=== PATIENT | male | born 1955 | race Caucasian/White ===

== ENCOUNTER 2017-07-07 05:47 | Inpatient (IN) | payer BC, OTHER ==
[2017-06-16 14:11] VITALS: BMI 36.0
--- NOTE | 2017-06-16 14:49 | PAT Medication Instructions ---
Service Date Jun 16, 2017. Current Home Medication List Amoxicillin (Amoxil), 500 MG PO UD PRN for DENTAL PROCEDURE Aspirin Enteric Coated (Ecotrin Or Generic), 81 MG PO QAM Cyanocobalamin (Vitamin B12), 1 TAB PO QAM Ferrous Sulfate (Iron), 1 TAB PO HS Losartan Potassium (Cozaar), 50 MG PO QAM Multivitamin (Multivitamin), 1 TAB PO QAM Pravastatin (Pravachol ), 10 MG PO HS Ranitidine (Zantac), 150 MG PO PRN Sulindac (Sulindac), 1 TAB PO HS [Zinc], 50 MG PO HS Medication Instructions For Your Scheduled Surgery Amoxicillin (Amoxil), 500 MG PO UD PRN for DENTAL PROCEDURE - Check with surgeon for instructions: Sulindac (Sulindac), 1 TAB PO HS - Hold the following medications the morning of surgery: Ranitidine (Zantac), 150 MG PO PRN Multivitamin (Multivitamin), 1 TAB PO QAM Losartan Potassium (Cozaar), 50 MG PO QAM Cyanocobalamin (Vitamin B12), 1 TAB PO QAM - Take the following medications the morning of surgery with a sip of water: Aspirin Enteric Coated (Ecotrin Or Generic), 81 MG PO QAM (okay to continue per surgeon) - Take the following medications as scheduled the night before surgery: [Zinc], 50 MG PO HS Pravastatin (Pravachol ), 10 MG PO HS Ranitidine (Zantac), 150 MG PO PRN (if needed) Ferrous Sulfate (Iron), 1 TAB PO HS If you have any questions please call us at [phone] or [phone] or [phone]
--- NOTE | 2017-06-16 15:25 | DIAGNOSTIC IMAGING REPORT ---
CHEST 2 VIEWS ROUTINE CLINICAL HISTORY: PAT preoperative evaluation COMPARISON STUDY: 02/07/2012 FINDINGS: The bones soft tissues and hemidiaphragms are normal. The cardiomediastinal silhouette is normal. The lungs are clear. The pulmonary vasculature is normal. Several metallic coils left lung base. IMPRESSION: No acute process. The above report was generated using voice recognition software. It may contain grammatical, syntax or spelling errors. Electronically signed by: Dustin Rodriguez M.D. 06/16/2017 3:24 PM Dictated Date/Time: 06/16/2017 3:22 PM
[2017-06-16 16:18] LABS: BASO % 0.4 %; BASO ABS # 0.03 K/uL (0-0.2); COMPLETE YES; EOS % 3.7 %; HEMATOCRIT 41.7 % (42-52); IG% 0.3 %; LYMPH % 27.2 %; LYMPH ABS # 1.89 K/uL (1.2-3.4); MEAN CELL VOLUME 95.9 fL (80-100); MEAN CORPUSCULAR HGB CONC 33.3 g/dl (32-36); MEAN PLATELET VOLUME 12.3 fL (7.4-10.4); MONO % 8.5 %; NEUT % 59.9 %; PLATELET COUNT 184 K/uL (130-400); RED BLOOD COUNT 4.35 M/uL (4.7-6.1); WHITE BLOOD COUNT 6.95 K/uL (4.8-10.8)
[2017-06-16 16:21] LABS: URINE APPEARANCE CLEAR (CLEAR); URINE BILIRUBIN NEG (NEG); URINE COLOR YELLOW; URINE NITRITE NEG (NEG); URINE PH 5.5 (4.5-7.5); URINE SPECIFIC GRAVITY 1.028 (1.000-1.030); UROBILINOGEN NEG (NEG); ZZUR CULT IF INDIC CLEAN CATCH NO
[2017-06-16 16:26] LABS: CALCIUM 8.4 mg/dl (8.5-10.1); MANUAL MICROSCOPIC REQUIRED? NO; POTASSIUM 3.6 mmol/L (3.5-5.1); REVIEW REQ? NO
[~2017-07-07] VITALS: Ht 177.8 cm; Wt 113.9 kg
[2017-07-07] VITALS (11 sets, daily range): BP systolic 115–156; BP diastolic 74–99; PULSE 58–93; TEMP 36.3–36.5; O2SAT 93–95; Ht 177.8 cm; Wt 113.9 kg
[~2017-07-07 05:47] MED LIST: AMOX500C3 PO; ASPI81TA21 PO; CLN200 PO; CYAN100020 PO; FERR1TAB61 PO; LOSA50TA6 PO; MULT-506 PO; PRAV20TA PO; ZINC PO; ZNTT/150 PO
[2017-07-07] MEDS ORDERED: CEFAZOLIN 2000 MG/60 ML D5W IV SCH (06:00)
[2017-07-07] MEDS ORDERED: LACTATED RINGER'S 1000ML 1,000 ML IV SCH (06:00)
[2017-07-07] MEDS ORDERED: FENTANYL CITRATE INJ 50 MCG/1 ML 2 ML VIAL ONE ×3 (06:41→09:03)
[2017-07-07] MEDS ORDERED: MIDAZOLAM HCL 1 MG/ML 2ML VIAL ONE (06:41)
[2017-07-07] MEDS ORDERED: BACITRACIN 50000 UNIT VIAL ONE (07:14)
[2017-07-07] MEDS ORDERED: BUPIVACAINE/EPINEPHRINE 0.5% MPF 1:200,000 10 ML VIAL ONE (07:14)
--- NOTE | 2017-07-07 07:28 | History & Physical Bridge Note ---
H&P Re-Evaluation Bridge Note: I have examined the patient, reviewed the History & Physical and in the interval since the performance of the History & Physical I have noted the following changes of clinical significance: No changes noted
--- NOTE | 2017-07-07 07:29 | History and Physical ---
History & Physical Date Jul 07, 2017. Chief Complaint Back and leg pain History of Present Illness The patient is a 61 year old male with complaints of back and leg pain Additional History Hepatic Disease: No Endocrine Disorder: No Kidney Disease: No Hypertension: No Heart Disease: No Bleeding Tendencies: No Infectious Diseases: No Allergies Coded Allergies: Mushroom Extract Complex (Verified Allergy, Unknown, ANAPHYLAXIS, 07/07/17) PT STATES HE IS TOLD TO STAY AWAY FROM ALL MUSHROMS NO KNOWN DRUG ALLERGIES (Verified Allergy, Unknown, NKDA, 07/07/17) Home Medications Scheduled Aspirin Enteric Coated (Ecotrin Or Generic), 81 MG PO QAM Cyanocobalamin (Vitamin B12), 1 TAB PO QAM Ferrous Sulfate (Iron), 1 TAB PO HS Losartan Potassium (Cozaar), 50 MG PO QAM Multivitamin (Multivitamin), 1 TAB PO QAM Pravastatin (Pravachol ), 10 MG PO HS Ranitidine (Zantac), 150 MG PO PRN Sulindac (Sulindac), 1 TAB PO HS [Zinc], 50 MG PO HS Scheduled PRN Amoxicillin (Amoxil), 500 MG PO UD PRN for DENTAL PROCEDURE Physical Examination Skin: warm/dry, no rash Eyes: normal inspection, EOMI, sclerae normal ENT: normal ENT inspection, pharynx normal Head: normocephalic, atraumatic Neck: supple, no adenopathy, trachea midline Respiratory/Chest: lungs clear, normal breath sounds, no respiratory distress Cardiovascular: regular rate, rhythm, no edema, no murmur Abdomen / GI: normal bowel sounds, non tender Back: normal inspection Extremities: normal inspection, normal range of motion Neurologic/Psych: no motor/sensory deficits, alert, normal reflexes, oriented x 3 Diagnosis Lumbar spinal stenosis Plan of Treatment Lumbar decompression and fusion L4 to S1
[2017-07-07] MEDS ORDERED: HYDROmorphone INJ 2 MG/ML SYR/VIAL ONE ×2 (08:00→09:41)
[2017-07-07] MEDS ORDERED: PROPOFOL IV EMULSION 10 MG/ML 20 ML VIAL IV ONE (09:09)
[2017-07-07] MEDS ORDERED: EpHEDrine SULFATE 50MG/5ML SYR ONE (09:09)
[2017-07-07] MEDS ORDERED: DEXAMETHASONE SOD INJ 4 MG/ML VIAL ONE (09:09)
[2017-07-07] MEDS ORDERED: PHENYLEPHRINE 100MCG/ML 5ML SYR ONE (09:09)
[2017-07-07] MEDS ORDERED: LIDOCAINE HCL 2% 2 ML VIAL (20MG/ML) ONE (09:09)
[2017-07-07] MEDS ORDERED: GLYCOPYRROLATE INJ 0.2 MG/ML VIAL ONE ×2 (09:09→09:43)
[2017-07-07] MEDS ORDERED: ATROPINE SULFATE 0.1 MG/ML 5ML SYR IV PRN (09:15)
[2017-07-07] MEDS ORDERED: PHENYLEPHRINE 100MCG/ML 5ML SYR IV PRN (09:15)
[2017-07-07] MEDS ORDERED: HYDROmorphone INJ 2 MG/ML SYR/VIAL IV PRN (09:15)
[2017-07-07] MEDS ORDERED: EpHEDrine SULFATE INJ 50 MG/ML AMP IV PRN (09:15)
[2017-07-07] MEDS ORDERED: ONDANSETRON INJ 2 MG/ML 2 ML VIAL IV PRN ×2 (09:15→09:45)
[2017-07-07] MEDS ORDERED: FLOSEAL HEMOSTATIC MATRIX 10ML TOP ONE (09:33)
[2017-07-07] MEDS ORDERED: SODIUM CHLORIDE 0.9% 1000ML 1,000 ML IV SCH (09:41)
[2017-07-07] MEDS ORDERED: NEOSTIGMINE METHYLSULFATE 1 MG/ML 10ML VIAL ONE (09:43)
[2017-07-07] MEDS ORDERED: ONDANSETRON INJ 2 MG/ML 2 ML VIAL ONE (09:43)
[2017-07-07] MEDS ORDERED: KETOROLAC TROMETHAMINE 30 MG/ML VIAL ONE ×2 (09:43→10:04)
[2017-07-07] MEDS ORDERED: ROCURONIUM BROMIDE 10 MG/ML 5 ML VIAL IV ONE (09:43)
[2017-07-07] MEDS ORDERED: DO NOT ADMINISTER PNEUMOCOCCAL VACCINE PRN ×2 (09:45)
[2017-07-07] MEDS ORDERED: LORAZEPAM 0.5 MG TAB PO PRN (09:45)
[2017-07-07] MEDS ORDERED: BISACODYL 10 MG SUPP PR PRN (09:45)
[2017-07-07] MEDS ORDERED: MAGNESIUM HYDROXIDE SUSP 30 ML UDC PO PRN (09:45)
[2017-07-07] MEDS ORDERED: ALUMINUM/MAGNESIUM SUSP 30 ML UDC PO PRN (09:45)
[2017-07-07] MEDS ORDERED: DO NOT ADMINISTER FLU VACCINE PRN ×3 (09:45)
[2017-07-07] MEDS ORDERED: ACETAMINOPHEN 500 MG TAB PO PRN (09:45)
[2017-07-07] MEDS ORDERED: LORAZEPAM INJ 0.5 MG in SYRINGE 0.75 ML IV PRN (09:45)
[2017-07-07] MEDS ORDERED: RANITIDINE HCL 150 MG TAB PO SCH (09:45)
[2017-07-07] MEDS ORDERED: PROMETHAZINE HCL INJ 12.5 MG in SODIUM CHLORIDE 0.9% 50ML 50 ML IV PRN (09:45)
[2017-07-07] MEDS ORDERED: ACETAMINOPHEN IV 100 ML IV PRN (09:45)
[2017-07-07] MEDS ORDERED: NALOXONE HCL 0.4 MG/1 ML VIAL/CARP IV PRN ×2 (09:45)
[2017-07-07] MEDS ORDERED: SOD PHOSPHATE/SOD BIPHOSPHATE ENEMA 132 ML BTL PR PRN (09:45)
[2017-07-07] MEDS ORDERED: METOCLOPRAMIDE HCL INJ 5 MG/ML 2 ML VIAL IV PRN (09:45)
[2017-07-07] MEDS ORDERED: FAMOTIDINE 20 MG TAB PO PRN (09:45)
[2017-07-07] MEDS ORDERED: hydrOXYzine HCL 25 MG TAB PO PRN (09:45)
--- NOTE | 2017-07-07 09:48 | [facility] Operative Report ---
Operative Report Operative Date Jul 07, 2017. Pre-Operative Diagnosis Lumbar Spinal Stenosis Post-Operative Diagnosis Lumbar Spinal Stenosis Procedure(s) Performed #1 lumbar decompression medial facetectomies foraminotomies L3 4 L4 5 L5-S1. #2 posterior spinal fusion L4 5 L5-S1. #3 placement posterior segmental instrumentation of L4 5 L5-S1. #4 number fusion L4 5. #5 placement peek cage 12 x 26 mm at L4 5. 6 placement of locally harvested morcellized autograft in the posterior lateral gutters. #7 placement of osteoamp in the interbody space and posterior lateral gutters. Surgeon Dr. Walsh Cell Assembly Pinner Surgeon(s) Martín Soto Estimated Blood Loss 400ml Findings Severe spinal stenosis Specimens none per surgeon Description of Procedure Patient was met with preoperatively case discussed all questions are dressed. After informed consent patient was taken to the operative suite and underwent intubation placed in a prone position the Alok table on top of the Hans frame. All bony promises well-padded eyes inspected to ensure there is no external pressure placed upon them. This point the number spine was prepped and draped in the normal sterile fashion. Sharp dissection with the assistance of Bovie cautery was performed onto an exposing the lamina and transverse processes of L4 L5 and the S1 levels bilaterally. From a caudal to cephalad fashion complete laminectomy of L5 L4 partial laminectomy of L3 was performed addressing severe lateral recess and foraminal stenosis. This included is is herniation at L5-S1 on the right. After complete decompression pedicle screws were placed in L4-L5 and S1 levels bilaterally with the assistance of fluoroscopy in the properly sized gabe placed. Through a transforaminal approach on the right a complete discectomy of L4 5 was performed and plate created to subcortical bleeding bone and a 12 x 26 mm peek cage filled with osteoamp tapped in position. Brought in and locked and final position bilaterally. Transverse processes of L4-L5 and sacral alar burred to subcortical bleeding bone. The remaining bone graft locally harvested morcellized autograft was placed in the posterior lateral gutters. A 15 round RICH drain was inserted. Incision was closed with 1 Vicryl in the fascia 2-0 Vicryl subcutaneously for Monocryl for final skin closure. Steri-Strips sterile dressing placed patient awakened and taken to PACU stable condition. Please note Zonia Blatnon was present at the entire procedure involved in patient positioning complex portions of the procedure and final skin closure. I attest to the content of the Intraoperative Record and any orders documented therein. Any exceptions are noted below.
--- NOTE | 2017-07-07 09:49 | DIAGNOSTIC IMAGING REPORT ---
LUMBAR SPINE 2 OR 3 VIEW HISTORY: 61 years-old Male L4-S1 DECOMPRESSION AND FUSION AND INTERBODY COMPARISON: None available TECHNIQUE: Frontal and lateral spot fluoroscopic images of the lumbar spine were obtained utilizing 20.7 seconds fluoroscopy time. FINDINGS: There has been interval posterior decompression with posterior interbody gabe and screw fusion at the L4-S1 levels. Discectomy changes are seen at L4-L5. Endplate spurring is seen at these levels with facet arthropathy. Alignment is satisfactory. IMPRESSION: Status post posterior decompression with interbody gabe and screw fusion at L4-S1. Discectomy changes noted at L4-L5. Satisfactory alignment. The above report was generated using voice recognition software. It may contain grammatical, syntax or spelling errors. Electronically signed by: Oracio Araujo M.D. 07/07/2017 9:48 AM Dictated Date/Time: 07/07/2017 9:46 AM
[2017-07-07] MEDS ORDERED: ESMOLOL HCL 10 MG/ML 10 ML VIAL ONE (10:04)
[2017-07-07] MEDS ORDERED: HYDROmorphone HCL 0.5MG/ML 50 ML CASSETTE ONE (10:04)
[2017-07-07] MEDS ORDERED: HYDROmorphone INJ 1 MG/ML SYR ONE ×2 (10:25→10:40)
--- NOTE | 2017-07-07 11:18 | Anesthesiology Progress Note ---
Anesthesia Post Op Note Date & Time Jul 07, 2017 at 11:18 Vital Signs Pain Intensity: 4 Vital Signs Past 12 Hours Date Time Temp Pulse Resp B/P (MAP) Pulse Ox O2 Delivery O2 Flow Rate FiO2 07/07/17 10:55 62 16 134/88 96 Nasal Cannula 2 07/07/17 10:45 60 16 151/89 94 Nasal Cannula 2 07/07/17 10:35 61 16 168/103 94 Nasal Cannula 2 07/07/17 10:25 66 16 159/106 94 Oxymask 10 07/07/17 10:15 37.1 68 14 156/93 97 Oxymask 10 07/07/17 10:00 37.1 73 16 135/82 95 Oxymask 10 07/07/17 06:05 36.5 60 20 144/99 95 Room Air Notes Mental Status: alert / awake / arousable, participated in evaluation Pt Amnestic to Procedure: Yes Nausea / Vomiting: adequately controlled Pain: adequately controlled Airway Patency, RR, SpO2: stable & adequate BP & HR: stable & adequate Hydration State: stable & adequate Anesthetic Complications: no major complications apparent
[2017-07-07] MEDS ORDERED: HYDROmorphone INJ 1 MG/ML SYR IV PRN (11:45)
[2017-07-07] MEDS: HYDROmorphone HCL 0.5MG/ML 50 ML CASSETTE IV PRN ×2 (12:05→23:05)
[2017-07-07] MEDS: SODIUM CHLORIDE 0.9% 1000ML 1,000 ML IV SCH ×2 (12:20→18:09)
[2017-07-07] MEDS ORDERED: RXC5 PO (15:34)
--- NOTE | 2017-07-07 15:35 | Discharge Instructions ---
Discharge Instructions Date of Service Jul 07, 2017. Admission Reason for Admission: Lumbar Spinal Stenosis Discharge Discharge Diagnosis / Problem: lumbar stenosis Discharge Goals Goal(s): Improve function Activity Recommendations Activity Limitations: per Instructions/Follow-up section . Current Hospital Diet Patient's current hospital diet: Regular Diet Discharge Diet Recommended Diet: Regular Diet Procedures Procedures Performed: #1 lumbar decompression medial facetectomies foraminotomies L3 4 L4 5 L5-S1. #2 posterior spinal fusion L4 5 L5-S1. #3 placement posterior segmental instrumentation of L4 5 L5-S1. #4 number fusion L4 5. #5 placement peek cage 12 x 26 mm at L4 5. 6 placement of locally harvested morcellized autograft in the posterior lateral gutters. #7 placement of osteoamp in the interbody space and posterior lateral gutters. Pending Studies Studies pending at discharge: no Medical Emergencies . Who to Call and When: Medical Emergencies: If at any time you feel your situation is an emergency, please call 911 immediately. . Non-Emergent Contact Non-Emergency issues call your: Primary Care Provider . "Provider Documentation" section prepared by West Walsh. . VTE Core Measure Inpt VTE Proph given/why not?: Alexis Liang, SCD's
[2017-07-07] MEDS: DEXAMETHASONE INJ 6 MG in SYRINGE 0 ML IV SCH (18:05)
[2017-07-07] MEDS: CEFAZOLIN IV 2,000 MG in DEXTROSE 5% 50ML 50 ML IV SCH (18:09)
[2017-07-07] MEDS: SULINDAC 200 MG TAB PO SCH (20:41)
[2017-07-07] MEDS: DOCUSATE SODIUM/SENNA 50/8.6MG TAB PO SCH (20:42)
[2017-07-07] MEDS: PRAVASTATIN SOD 20 MG TAB PO SCH (20:42)
[2017-07-08] VITALS (7 sets, daily range): BP systolic 105–176; BP diastolic 64–86; PULSE 63–79; TEMP 36.6–37.3; O2SAT 92–97
[2017-07-08] MEDS: CEFAZOLIN IV 2,000 MG in DEXTROSE 5% 50ML 50 ML IV SCH (01:17)
[2017-07-08] MEDS: SODIUM CHLORIDE 0.9% 1000ML 1,000 ML IV SCH (01:17)
[2017-07-08] MEDS: DEXAMETHASONE INJ 6 MG in SYRINGE 0 ML IV SCH ×2 (01:17→10:20)
[2017-07-08] MEDS ORDERED: COUGH DROP (SUGAR FREE) LOZ 24 LOZ/1 BOX ONE (01:20)
[2017-07-08] MEDS ORDERED: NURSING DECISION MEDICATION ORDER SCH (05:45)
[2017-07-08] MEDS ORDERED: DC PCA SCH (06:00)
[2017-07-08 06:14] LABS: COMPLETE YES; HEMATOCRIT 35.1 % (42-52); IG% 0.3 %; LYMPH % 5.1 %; LYMPH ABS # 0.85 K/uL (1.2-3.4); MEAN CELL VOLUME 95.9 fL (80-100); MEAN CORPUSCULAR HEMOGLOBIN 31.4 pg (25-34); MEAN CORPUSCULAR HGB CONC 32.8 g/dl (32-36); MEAN PLATELET VOLUME 12.2 fL (7.4-10.4); MONO % 3.6 %; PLATELET COUNT 188 K/uL (130-400); RED BLOOD COUNT 3.66 M/uL (4.7-6.1); WHITE BLOOD COUNT 16.55 K/uL (4.8-10.8)
[2017-07-08 06:57] LABS: BUN/CREATININE RATIO 16.9 (10-20); CALCIUM 7.1 mg/dl (8.5-10.1); POTASSIUM 4.1 mmol/L (3.5-5.1)
--- NOTE | 2017-07-08 08:08 | Progress Note ---
Progress Note Date of Service Jul 08, 2017. Progress Note Patient back pain is relatively well controlled some left upper buttock discomfort only. On exam he is good strength testing appears comfortable. Assessment status post lumbar depression fusion replant this time initiate physical therapy advance his bowel regimen anticipate possible home tomorrow evening
[2017-07-08] MEDS: OXYCODONE HCL IR 5 MG TAB (IMMEDIATE RELEASE) PO PRN ×4 (08:28→23:59)
[2017-07-08] MEDS: LOSARTAN POTASSIUM 50 MG TAB PO SCH (08:28)
[2017-07-08] MEDS: ASPIRIN 81 MG ECTAB PO SCH (08:28)
[2017-07-08] MEDS: HYDROmorphone INJ 0.5 MG/0.5 ML SYR IV PRN ×2 (12:09→21:44)
--- NOTE | 2017-07-08 12:58 | Anesthesiology Progress Note ---
Anesthesia Post Op Note Date & Time Jul 08, 2017 at 12:57 Vital Signs Pain Intensity: 3.0 Vital Signs Past 12 Hours Date Time Temp Pulse Resp B/P (MAP) Pulse Ox O2 Delivery O2 Flow Rate FiO2 07/08/17 10:55 36.8 68 18 150/78 (102) 97 Room Air 07/08/17 07:38 36.6 63 19 139/78 (98) 95 Room Air 07/08/17 07:15 Room Air 07/08/17 03:18 36.6 73 17 105/64 (78) 93 Room Air Notes Mental Status: alert / awake / arousable, participated in evaluation Anesthetic Complications: no major complications apparent
[2017-07-08] MEDS: SULINDAC 200 MG TAB PO SCH (21:40)
[2017-07-08] MEDS: PRAVASTATIN SOD 20 MG TAB PO SCH (21:40)
[2017-07-08] MEDS: DOCUSATE SODIUM/SENNA 50/8.6MG TAB PO SCH (21:41)
[2017-07-09] MEDS: POLYETHYLENE (MIRALAX) 17 GM PACK PO SCH ×2 (05:36→12:00)
[2017-07-09] MEDS: OXYCODONE HCL IR 5 MG TAB (IMMEDIATE RELEASE) PO PRN ×2 (05:40→13:56)
[2017-07-09 06:34] VITALS: BP 146/98; PULSE 73; TEMP 36.6; O2SAT 96
[2017-07-09] MEDS: LOSARTAN POTASSIUM 50 MG TAB PO SCH (07:46)
[2017-07-09] MEDS: ASPIRIN 81 MG ECTAB PO SCH (07:46)
[2017-07-09 14:18] VITALS: BP 146/98; PULSE 73; TEMP 36.6; O2SAT 96
--- NOTE | 2017-07-09 14:30 | Discharge Instructions ---
Discharge Instructions Date of Service Jul 09, 2017. Admission Reason for Admission: Lumbar Spinal Stenosis Discharge Discharge Diagnosis / Problem: stenosis Discharge Goals Goal(s): Improve function Activity Recommendations Activity Limitations: per Instructions/Follow-up section . Instructions / Follow-Up Instructions / Follow-Up ACTIVITY RECOMMENDATIONS: SELF CARE INSTRUCTIONS AFTER THORACIC/LUMBAR FUSIONS 1. You may walk to your tolerance. It is good exercise for your legs and back. Expect some back and intermittent leg aches and pains. 2. You may perform "counter-top" level activities (make a sandwich, yaneth with a project, etc.). 3. No bending or lifting of more than 10 pounds or back twisting of any nature (roll like a log when turning in bed). 4. You may ride in a car for 20-30 minutes at a time. No driving until after your first visit with your doctor. 5. Frequent changes of position and restricting sitting to 30 minutes at a time will help limit the amount of back spasms and stiffness you may experience. 6. You may discontinue the use of ambulatory aids (cane, crutches, etc.) once your strength and confidence allow. 7. You may automotive painter the shower and let water strike your incision when you arrive home at least once daily. Do not take a tub bath, sit in a hot tub or go into a swimming pool until after your first recheck in the office. SPECIAL CARE INSTRUCTIONS: VERY IMPORTANT TO READ AND REVIEW A. Your surgical incision has been closed with a cosmetic suture under the skin that will dissolve in about 6 weeks. In 14 days, you can use a pair of clean scissors and cut the suture that is left outside of the skin at the ends of your incision. 1. The small skin tapes can be removed 7 days after surgery if they have not fallen off by that point. 2. You may keep the wound open to air as much as possible to promote healing after post-op day number 5 unless told otherwise by your doctor. 3. If you think the wound looks like it is becoming infected (redness or worsening drainage) and/or you are experiencing fever, chill or worsening back pain and muscle spasms, contact the office so that we may evaluate you as soon as possible. B. Complications are uncommon, but please contact us if you have any signs or symptoms of: 1. wound infection (fever higher than 102.5 degrees F, redness, separation of wound, drainage, or increasing pain from the incision) 2. blood clots in legs (pain, swelling, redness and warmth in legs) 3. urinary tract infection (fever higher than 102.5 degrees F, burning upon urination or increased frequency of urination) 4. nerve problems (inability to walk on your toes or heels, numbness, loss of bowel or bladder control) 5. any other symptoms that concern you C. Please call the office at if you have any concerns or questions about your operation or recovery. D. No smoking! Smoking drastically decreases the chance of a solid fusion. E. Do not take any anti-inflammatory medications (Indocin, Advil, Motrin, Aspirin, Naprosyn, etc.) as these may inhibit the chance of a solid fusion. Tylenol is okay to take for pain. MANAGING PAIN AFTER SPINAL SURGERY 1. Narcotic medication is intended for short-term use and will be provided for surgical pain. Surgical pain usually lasts for a period of 4-6 weeks. Narcotic medication includes Percocet, Vicodin, Darvocet, Tylenol #3 or Lortab. 2. Longer-term pain is more appropriately treated with non-narcotic medication such as Tylenol ES. 3. Muscle spasm is not appropriately treated with narcotics. Muscle relaxers such as Soma, Flexeril or Skelaxin can be used along with Tylenol ES. 4. Remember that we all live with some "aches and pains". This is not unusual or uncommon after an injury or as we get older. a. Back pain is expected and may include muscle spasms for 4 to 6 weeks after surgery. The pain should gradually improve. If the pain worsens for no apparent reason, please contact the office. b. Intermittent leg pain may also be experienced and should not be concerned about unless it worsens for no apparent reason. If so, please contact the office. 5. We will provide appropriate medication within the normal guidelines of their prescribed use. We will also be very cautious and aware of potential abuse and extended duration of patients' medication needs. a. Pain medications are for your comfort and to assist with sleep and rest so that the tissue can heal. They are not provided in order to return to normal activity and should not be used through the day. To do so or worsening pain at night can result from ongoing tissue damage and development of tolerance to the prescribed medicine. 6. Please allow 2-3 days to process refills. Prescriptions will not be mailed but must be picked up at the office. FOLLOW UP VISIT: Keep your scheduled follow-up appointment. Any questions, please call the office at . Current Hospital Diet Patient's current hospital diet: Regular Diet Discharge Diet Recommended Diet: Regular Diet Procedures Procedures Performed: #1 lumbar decompression medial facetectomies foraminotomies L3 4 L4 5 L5-S1. #2 posterior spinal fusion L4 5 L5-S1. #3 placement posterior segmental instrumentation of L4 5 L5-S1. #4 number fusion L4 5. #5 placement peek cage 12 x 26 mm at L4 5. 6 placement of locally harvested morcellized autograft in the posterior lateral gutters. #7 placement of osteoamp in the interbody space and posterior lateral gutters. Pending Studies Studies pending at discharge: no Medical Emergencies . Who to Call and When: Medical Emergencies: If at any time you feel your situation is an emergency, please call 911 immediately. . Non-Emergent Contact Non-Emergency issues call your: Primary Care Provider . "Provider Documentation" section prepared by West Walsh. . VTE Core Measure Inpt VTE Proph given/why not?: Alexis Liang, COURTNEY's
--- NOTE | 2017-07-09 14:44 | Discharge Summary ---
Orthopedic Discharge Summary Admission Date/Reason Jul 07, 2017 at 07:30 Lumbar Spinal Stenosis. Discharge Date/Disposition Jul 09, 2017 Home with services Diagnosis Principal Diagnosis: Lumbar spinal stenosis Admission Physical Exam As per Admitting History & Physical. Hospital Course Patient underwent lumbar decompression fusion tolerated this well as taken to the orthopedic floor postop we. He was up and amatory progressed nicely throughout his postoperative course. Socially discharge home. Discharge orders and instructions found on the chart for further review. Discharge Instructions Please refer to the electronic Patient Visit Report (Discharge Instructions) for additional information.
== END 2017-07-09 14:56 | disposition home or self-care (01) | DRG 460 ==
LOC: C.ACU 05:47 → C.3E 07:30 → ENRESERV 10:59
PROVIDERS: ADMIT Orthopaedic Surgery Orthopaedic Surgery of the Spine; ATTEND Orthopaedic Surgery Orthopaedic Surgery of the Spine
PROC: 0ST20ZZ Resection of Lumbar Vertebral Disc, Open Approach (ICD-10-PCS; principal; 2017-07-07 07:45)
PROC: 0SG10J1 Fusion of 2 or more Lumbar Vertebral Joints with Synthetic Substitute, Posterior Approach, Posterior Column, Open Approach (ICD-10-PCS; principal; 2017-07-07 07:45)
DX: M48.06 Spinal stenosis, lumbar region (principal); Z79.82 Long term (current) use of aspirin

== ENCOUNTER 2018-03-07 19:24 | Inpatient (IN) | payer BC, OTHER ==
[~2018-03-07] VITALS: Ht 177.8 cm; Wt 109.6 kg
[~2018-03-07 19:24] MED LIST changes: +ASPI-319 PO; -ASPI81TA21 PO; -CLN200 PO; +RANI150T85 PO; +RXC5 PO; -ZNTT/150 PO
[2018-03-07] MEDS ORDERED: SODIUM CHLORIDE 0.9% 1000ML 1,000 ML IV STA (19:39)
[2018-03-07] MEDS ORDERED: MoRPHine SULFATE 4 MG/ML 1 ML CARP\\VIAL IV STA ×2 (19:39→21:55)
[2018-03-07] MEDS ORDERED: ONDANSETRON INJ 2 MG/ML 2 ML VIAL IV STA (19:39)
[2018-03-07 19:59] LABS: BASO % 0.3 %; BASO ABS # 0.03 K/uL (0-0.2); EOS % 1.7 %; HEMATOCRIT 39.6 % (42-52); HEMOGLOBIN 13.6 g/dL (14.0-18.0); IG# 0.03 K/uL (0.00-0.02); LYMPH % 14.7 %; LYMPH ABS # 1.69 K/uL (1.2-3.4); MEAN CELL VOLUME 94.1 fL (80-100); MEAN CORPUSCULAR HEMOGLOBIN 32.3 pg (25-34); MEAN CORPUSCULAR HGB CONC 34.3 g/dl (32-36); MEAN PLATELET VOLUME 11.1 fL (7.4-10.4); MONO % 6.9 %; MONO ABS # 0.79 K/uL (0.11-0.59); NEUT % 76.1 %; NEUT ABS # 8.73 K/uL (1.4-6.5); PLATELET COUNT 189 K/uL (130-400); RED CELL DISTRIBUTION WIDTH CV 12.5 % (11.5-14.5); RED CELL DISTRIBUTION WIDTH SD 43.1 fL (36.4-46.3); WHITE BLOOD COUNT 11.47 K/uL (4.8-10.8)
[2018-03-07 20:17] LABS: ALBUMIN 3.5 gm/dl (3.4-5.0); CALCIUM 8.4 mg/dl (8.5-10.1); CREATININE 1.67 mg/dl (0.60-1.40); POTASSIUM 3.6 mmol/L (3.5-5.1)
[2018-03-07 20:20] LABS: TOTAL PROTEIN 7.4 gm/dl (6.4-8.2)
--- NOTE | 2018-03-07 21:01 | DIAGNOSTIC IMAGING REPORT ---
GALLBLADDER-ABD LIMITED CLINICAL HISTORY: R flank pain; hx gallstones pain TECHNIQUE: Ultrasound COMPARISON STUDY: None FINDINGS: Gallbladder contains several stones in the region of the gallbladder neck. The largest measures 1 cm. No pericholecystic fluid. Common bile duct 4 mm. Liver shows mild fatty infiltration. Pancreas is not identified. Right kidney demonstrates mild fullness of the renal collecting system and renal pelvis. 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 There is a 3 cm lower pole right renal cyst. IMPRESSION: 1. Several gallstones within the gallbladder neck. 2. Normal caliber bile ducts. 3. Mild fatty infiltration of liver. 4. 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 The above report was generated using voice recognition software. It may contain grammatical, syntax or spelling errors. Electronically signed by: Dustin Rodriguez M.D. 03/07/2018 9:00 PM Dictated Date/Time: 03/07/2018 8:57 PM
[2018-03-07] MEDS ORDERED: MoRPHine SULFATE 4 MG/ML 1 ML CARP\\VIAL ONE (21:56)
[2018-03-07] MEDS ORDERED: CHOL2000 PO (22:07)
[2018-03-07] MEDS ORDERED: ZINC1TAB PO (22:07)
[2018-03-07] MEDS ORDERED: FERR83TA2 PO (22:07)
[2018-03-07] MEDS ORDERED: HYZ/50125 PO (22:07)
[2018-03-07] MEDS ORDERED: PRVC/10 PO (22:07)
[2018-03-07] MEDS ORDERED: SULI200T4 PO (22:07)
--- NOTE | 2018-03-07 23:54 | History and Physical ---
History & Physical Date & Time of Service: Mar 07, 2018 at 23:53 Chief Complaint: Gall Bladder Primary Care Physician: Keith Kang Jr,D.O. History of Present Illness Source: patient, spouse The patient is a 62-year-old male who presents to the emergency department with right sided flank and abdominal pain that initially occurred a couple days ago, then resolved spontaneously, and then recurred today. The pain is severe, and he has had some occasional nausea but no vomiting. He has been given morphine 4 mg IV in the ED with little improvement in pain. He does have a history of low back pain and had surgery last year, and did take 1 of his pain pills that was left over because he thought the pain may have been back related. When he did not improve, he decided to come to the emergency department for assessment. Past Medical/Surgical History Medical Problems: (1) Hydronephrosis of right kidney (2) Lumbar stenosis with neurogenic claudication (3) Right ureteral calculus Family History noncontributory Social History Smoking Status: Current Some Day Smoker Smokeless Tobacco Use: No Alcohol Use: none Drug Use: none Marital Status: Housing status: lives with family Immunizations History of Influenza Vaccine: No History of Tetanus Vaccine?: Unknown History of Pneumococcal: Unknown History of Hepatitis B Vaccine: Unknown Allergies Coded Allergies: Mushroom Extract Complex (Verified Allergy, Unknown, ANAPHYLAXIS, 07/07/17) PT STATES HE IS TOLD TO STAY AWAY FROM ALL MUSHROMS NO KNOWN DRUG ALLERGIES (Verified Allergy, Unknown, NKDA, 07/07/17) Home Medications Scheduled Aspirin Enteric Coated (Ecotrin Or Generic), 81 MG PO QAM Cholecalciferol (Vitamin D3), 2,000 INTER.UNIT PO DAILY Cyanocobalamin (Vitamin B12), 1,000 MCG PO QAM Ferrous Sulfate (Ferrous Sulfate), 27 MG PO DAILY Hctz/Losartan (Hyzaar 12.5MG/50MG), 1 TAB PO DAILY Multivitamin (Multivitamin), 1 TAB PO QAM Pravastatin Sod (Pravastatin Sodium), 10 MG PO HS Sulindac (Clinoril), 200 MG PO BID Zinc Gluconate (Zinc), 50 MG PO HS Scheduled PRN Amoxicillin (Amoxil), 500 MG PO UD PRN for Prior to Dental Procedures Review of Systems The patient denies chest pain, palpitations, shortness of breath, dyspnea on exertion, cough, lower extremity swelling, sore throat, fevers, chills, sweats, weight change, fatigue, vomiting, diarrhea , constipation, blood in urine or stool, dysuria, urinary frequency or urgency, lightheadedness , dizziness, headache, memory loss, loss of consciousness, rash, abnormal bruising or bleeding, imbalance, focal or generalized weakness, numbness or tingling in arms or legs, generalized arthralgias or myalgias, back or neck pain, or night sweats. The review of systems is otherwise negative other than for that already noted above, and at least 10 systems have been reviewed. Physical Exam Vital Signs Date Time Temp Pulse Resp B/P (MAP) Pulse Ox O2 Delivery O2 Flow Rate FiO2 03/07/18 23:01 77 16 147/92 94 Room Air 03/07/18 21:07 63 16 145/94 93 03/07/18 19:28 36.7 72 18 160/100 97 Room Air The patient is awake, alert and oriented 3, well developed and well nourished, normocephalic and atraumatic, lying in bed and in mild to moderate distress due to pain. HEENT--PERRL, EOMI, mucous membranes and oropharynx dry. Neck--supple. No JVD. No bruits. Thyroid normal, trachea midline, no adenopathy. Heart--normal S1 and S2. No murmurs, rubs or gallops. Lungs--clear bilaterally, no respiratory distress, no accessory muscle use. Abdomen--normal bowel sounds and soft. Mild tenderness right lower quadrant and right flank. Nondistended, no hernias or masses, no organomegaly. Extremities--no cyanosis or clubbing. No edema on the right. There is 1+ chronic pitting pretibial on the left. There are good distal pulses b/l. Dermatologic--normal skin turgor, normal color, no abnormal lymph nodes, no rash. Neurologic--cranial nerves II through XII grossly intact. Rheumatologic--normal range of motion. Psychiatric--normal affect. Diagnostics Laboratory Results Results Past 24 Hours Test 03/07/18 19:45 03/07/18 20:03 Range/Units White Blood Count 11.47 4.8-10.8 K/uL Red Blood Count 4.21 4.7-6.1 M/uL Hemoglobin 13.6 14.0-18.0 g/dL Hematocrit 39.6 42-52 % Mean Corpuscular Volume 94.1 80-100 fL Mean Corpuscular Hemoglobin 32.3 25-34 pg Mean Corpuscular Hemoglobin Concent 34.3 32-36 g/dl Platelet Count 189 130-400 K/uL Mean Platelet Volume 11.1 7.4-10.4 fL Neutrophils (%) (Auto) 76.1 % Lymphocytes (%) (Auto) 14.7 % Monocytes (%) (Auto) 6.9 % Eosinophils (%) (Auto) 1.7 % Basophils (%) (Auto) 0.3 % Neutrophils # (Auto) 8.73 1.4-6.5 K/uL Lymphocytes # (Auto) 1.69 1.2-3.4 K/uL Monocytes # (Auto) 0.79 0.11-0.59 K/uL Eosinophils # (Auto) 0.20 0-0.5 K/uL Basophils # (Auto) 0.03 0-0.2 K/uL RDW Standard Deviation 43.1 36.4-46.3 fL RDW Coefficient of Variation 12.5 11.5-14.5 % Immature Granulocyte % (Auto) 0.3 % Immature Granulocyte # (Auto) 0.03 0.00-0.02 K/uL Sodium Level 140 136-145 mmol/L Potassium Level 3.6 3.5-5.1 mmol/L Chloride Level 107 98-107 mmol/L Carbon Dioxide Level 26 21-32 mmol/L Anion Gap 7.0 3-11 mmol/L Blood Urea Nitrogen 18 7-18 mg/dl Creatinine 1.67 0.60-1.40 mg/dl Est Creatinine Clear Calc Drug Dose 56.4 ml/min Estimated GFR () 49.7 Estimated GFR (Non- 42.9 BUN/Creatinine Ratio 11.0 10-20 Random Glucose 107 70-99 mg/dl Calcium Level 8.4 8.5-10.1 mg/dl Total Bilirubin 0.5 0.2-1 mg/dl Direct Bilirubin 0.1 0-0.2 mg/dl Aspartate Amino Transf (AST/SGOT) 22 15-37 U/L Alanine Aminotransferase (ALT/SGPT) 28 12-78 U/L Alkaline Phosphatase 69 45-117 U/L Total Protein 7.4 6.4-8.2 gm/dl Albumin 3.5 3.4-5.0 gm/dl Lipase 158 73-393 U/L Urine Color YELLOW Urine Appearance CLEAR CLEAR Urine pH 5.0 4.5-7.5 Urine Specific [place] 1.029 1.000-1.030 Urine Protein NEG NEG Urine Glucose (UA) NEG NEG Urine Ketones NEG NEG Urine Occult Blood NEG NEG Urine Nitrite NEG NEG Urine Bilirubin NEG NEG Urine Urobilinogen NEG NEG Urine Leukocyte Esterase NEG NEG Diagnostic Radiology Patient Name: SHAYLA WISDOM V Unit Number: [id number] Dictated: 03/07/182056 Transcribed: 03/07/182056 MS Printed Date/Time: [~ rep prt dt]/[~ rep prt tm] [~ rep ct labl] - [~ rep ct ivnm] [facility] [address] [place] [address] Dictated: 03/07/182056 Transcribed: 03/07/182056 MS Printed Date/Time: [~ rep prt dt]/[~ rep prt tm] [~ rep ct labl] - [~ rep ct ivnm] GALLBLADDER-ABD LIMITED CLINICAL HISTORY: R flank pain; hx gallstones pain TECHNIQUE: Ultrasound COMPARISON STUDY: None FINDINGS: Gallbladder contains several stones in the region of the gallbladder neck. The largest measures 1 cm. No pericholecystic fluid. Common bile duct 4 mm. Liver shows mild fatty infiltration. Pancreas is not identified. Right kidney demonstrates mild fullness of the renal collecting system and renal pelvis. 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 There is a 3 cm lower pole right renal cyst. IMPRESSION: 1. Several gallstones within the gallbladder neck. 2. Normal caliber bile ducts. 3. Mild fatty infiltration of liver. 4. 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 The above report was generated using voice recognition software. It may contain grammatical, syntax or spelling errors. Electronically signed by: Dustin Rodriguez M.D. 03/07/2018 9:00 PM Dictated Date/Time: 03/07/2018 8:57 PM The status of this report is Signed. Draft = Not yet reviewed or approved by Radiologist. Signed = Reviewed and approved by Radiologist. <AttendingPhy></AttendingPhy> <FamilyPhy>Keith Kang Jr,D.O.</FamilyPhy> < PrimaryPhy>Keith Kang Jr,D.O.</PrimaryPhy> <UnitNumber>[id number]</ UnitNumber> <VisitNumber>[id number]</VisitNumber> <PatientName>SHAYLA WISDOM V</ PatientName> <DateOfBirth>1955</DateOfBirth> <Location>[facility]</Location> < ServiceDate>03/07/18</ServiceDate> <MNE>ESINDI</MNE> <OrderingPhy>Agusto Buckner PA-C</OrderingPhy> <OrderingPhyMNE>f rep ord dr freire</OrderingPhyMNE> < DictatingPhyMNE>f rep dict dr freire</DictatingPhyMNE> <CCListMNE>f rep ct mouna</ CCListMNE> <AdmittingPhyMNE>f pt admit dr freire</AdmittingPhyMNE> <AttendingPhyMNE >f pt attend dr freire</AttendingPhyMNE> <ConsultingPhyMNE>f pt consult dr freire</ConsultingPhyMNE> <FamilyPhyMNE>f pt fam dr freire</FamilyPhyMNE> <OtherPhyMNE>f pt other dr freire</OtherPhyMNE> < PrimaryPhyMNE>f pt prim care dr freire</PrimaryPhyMNE> <ReferringPhyMNE>f pt referring dr freire</ReferringPhyMNE> Impression Assessment and Plan 7 mm right proximal ureteral stone/right hydronephrosis-- Admit to medical surgical floor. N.p.o. after midnight. Ceftriaxone 1 g IV daily. Follow urine culture and sensitivity report. NSS at 80 ML's per hour. Consult urology. Acute kidney injury/hypertension-- Creatinine 1.67 upon admission. Hydrate with normal saline as above. Repeat BMP and magnesium serially. Hold HCTZ/losartan, aspirin and sulindac. Hyperlipidemia-- hold pravastatin while n.p.o. Vitamin B12 deficiency-- Hold cyanocobalamin 1000 mcg p.o. every morning until taking p.o. Advanced Directives Existing Advance Directive: No Existing Living Will: No Existing Power of Conflicts Analyst: No Resuscitation Status VTE Prophylaxis Will order VTE Prophylaxis: Yes Social Service Consult None Apply
[2018-03-08] VITALS (8 sets, daily range): BP systolic 134–165; BP diastolic 82–102; PULSE 58–68; TEMP 36.5–37; O2SAT 91–94; Ht 177.8 cm; Wt 109.6 kg
[2018-03-08] MEDS ORDERED: HYDROmorphone INJ 1 MG/ML SYR ONE (00:13)
[2018-03-08] MEDS ORDERED: ACETAMINOPHEN IV 100 ML IV PRN (00:15)
[2018-03-08] MEDS ORDERED: ACETAMINOPHEN 325 MG TAB PO PRN (00:15)
[2018-03-08] MEDS ORDERED: ONDANSETRON INJ 2 MG/ML 2 ML VIAL IV PRN (00:15)
--- NOTE | 2018-03-08 00:21 | EMERGENCY ROOM VISIT NOTE ---
ED Visit Note First contact with patient: 19:30 Chief Complaint: Abdominal pain History of Present Illness: Edison is a year-old white female complaining of quadrant abdominal pain. Historically patient reports Patient reports a onset of quadrant abdominal pain that started approximately hours ago. Since that time the pain has been . The pain is currently described as . The pain is nonradiating. The pain worsens with and is improved by . has been taken for pain and relief has been achieved. Associated with the pain there has been . Patient denies fevers, chills, sweats, skin eruptions, skin color changes, upper respiratory tract symptoms, shortness of breath, chest pain, nausea, vomiting, diarrhea, constipation, rectal bleeding, black/tarry stools, urinary symptoms, hematuria, vaginal bleeding, vaginal discharge, back/flank pain. Review of Systems: As noted above in history of present illness. All body systems were reviewed and found to be negative as noted above. Past Medical History: As previously noted and hypertension, nasal AVM, prostrate cancer, status post carpal tunnel release, lumbar back surgery. Current Medications: Allergies to Medications: Patient denies. Social History: Patient is currently employed; he feels safe in his home environment; he admits to tobacco use and denies alcohol use. Physical Examination: Vital Signs: Date Time Temp Pulse Resp B/P (MAP) Pulse Ox O2 Delivery O2 Flow Rate FiO2 03/07/18 23:01 77 16 147/92 94 Room Air 03/07/18 21:07 63 16 145/94 93 03/07/18 19:28 36.7 72 18 160/100 97 Room Air GENERAL: -year-old female in mild to moderate distress due to pain, nontoxic- appearing, afebrile and hemodynamically stable. NEUROLOGICAL: Awake, alert and oriented to person, place and time. Answering questions appropriately and following commands. Normal gait. Good hand eye coordination. SKIN: Warm, dry and pink. No soft tissue eruptions or trauma noted. HEENT: Atraumatic and normocephalic. PERRL. Sclera white and conjunctiva pink. Oral cavity moist and pink. Pharynx is nonerythematous or edematous. Speech normal. No lymphadenopathy. Trachea midline. No jugular venous distention. BACK: No tenderness over the bony spine. No CVA tenderness. THORAX: Lungs sounds are clear to auscultation and equal bilaterally with symmetrical chest wall. No wheezing, rales or rhonchi. No crepitus, tenderness , subcutaneous air or deformities noted. HEART: Regular rate and rhythm. No gallops, rubs or murmurs are appreciated. ABDOMEN: Flat, soft and nontender. Positive bowel sounds in all quadrants. No guarding, rigidity or organomegaly. EXTREMITIES: Moves all extremities well on command and with purpose. All distal neurovascular statuses are intact and equal bilaterally. ED Course: Patient is assessed as noted above. Patient's medication list was reviewed. Laboratory Testing: Test 03/07/18 19:45 03/07/18 20:03 Range/Units White Blood Count 11.47 4.8-10.8 K/uL Red Blood Count 4.21 4.7-6.1 M/uL Hemoglobin 13.6 14.0-18.0 g/dL Hematocrit 39.6 42-52 % Mean Corpuscular Volume 94.1 80-100 fL Mean Corpuscular Hemoglobin 32.3 25-34 pg Mean Corpuscular Hemoglobin Concent 34.3 32-36 g/dl Platelet Count 189 130-400 K/uL Mean Platelet Volume 11.1 7.4-10.4 fL Neutrophils (%) (Auto) 76.1 % Lymphocytes (%) (Auto) 14.7 % Monocytes (%) (Auto) 6.9 % Eosinophils (%) (Auto) 1.7 % Basophils (%) (Auto) 0.3 % Neutrophils # (Auto) 8.73 1.4-6.5 K/uL Lymphocytes # (Auto) 1.69 1.2-3.4 K/uL Monocytes # (Auto) 0.79 0.11-0.59 K/uL Eosinophils # (Auto) 0.20 0-0.5 K/uL Basophils # (Auto) 0.03 0-0.2 K/uL RDW Standard Deviation 43.1 36.4-46.3 fL RDW Coefficient of Variation 12.5 11.5-14.5 % Immature Granulocyte % (Auto) 0.3 % Immature Granulocyte # (Auto) 0.03 0.00-0.02 K/uL Sodium Level 140 136-145 mmol/L Potassium Level 3.6 3.5-5.1 mmol/L Chloride Level 107 98-107 mmol/L Carbon Dioxide Level 26 21-32 mmol/L Anion Gap 7.0 3-11 mmol/L Blood Urea Nitrogen 18 7-18 mg/dl Creatinine 1.67 0.60-1.40 mg/dl Est Creatinine Clear Calc Drug Dose 56.4 ml/min Estimated GFR () 49.7 Estimated GFR (Non- 42.9 BUN/Creatinine Ratio 11.0 10-20 Random Glucose 107 70-99 mg/dl Calcium Level 8.4 8.5-10.1 mg/dl Total Bilirubin 0.5 0.2-1 mg/dl Direct Bilirubin 0.1 0-0.2 mg/dl Aspartate Amino Transf (AST/SGOT) 22 15-37 U/L Alanine Aminotransferase (ALT/SGPT) 28 12-78 U/L Alkaline Phosphatase 69 45-117 U/L Total Protein 7.4 6.4-8.2 gm/dl Albumin 3.5 3.4-5.0 gm/dl Lipase 158 73-393 U/L Urine Color YELLOW Urine Appearance CLEAR CLEAR Urine pH 5.0 4.5-7.5 Urine Specific [place] 1.029 1.000-1.030 Urine Protein NEG NEG Urine Glucose (UA) NEG NEG Urine Ketones NEG NEG Urine Occult Blood NEG NEG Urine Nitrite NEG NEG Urine Bilirubin NEG NEG Urine Urobilinogen NEG NEG Urine Leukocyte Esterase NEG NEG Gallbladder Ultrasound: Was reviewed by myself and read by the radiologist and shows several stones in the region of the gallbladder neck with the largest measuring 1 cm. No holistic fluid. Common bile duct measuring 4 mm. Liver showing fatty infiltration. Pancreas was not identified. Right kidney demonstrate mild fullness of the renal collection system and renal pelvis with a 3 cm lower pole renal cyst Noncontrast Abdominal/Pelvic CT: Was reviewed by myself and read by the radiologist and showing a 7 mm stone in the proximal right ureter with moderate proximal dilatation, left nonobstructing renal stone, cholelithiasis and a normal-appearing appendix. Patient was hydrated with normal saline and he received a total of 8 mg of morphine IV for pain and 4 mg of Zofran IV. Patient was reassessed multiple times during his stay in the emergency department. Patient's case was consulted with general surgery who felt a noncontrast CT of the abdomen and pelvis was necessary to evaluate for ureter calculus; they felt that there was no ureter calculus patient should be admitted by general surgery for cholecystectomy tomorrow. Patient's case was reviewed with Dr. So; we agreed on diagnostic approach, treatment, disposition and plan. Patient's case was consulted with case management and Dr. Simpson, hospitalist, for medical observation/admission. Patient was educated about today's findings and instructed on his treatment plan ; he verbalized understanding and agreement with this plan. Clinical Impression: Right ureter calculus. Cholelithiasis. Decision-Making: Initially my differential diagnosis I considered urinary calculus, cholelithiasis, pancreatitis, hepatitis, pyelonephritis and other causes. Disposition and Plan: Patient to be brought in the hospital by Dr. Simpson; please see his notes and orders for final disposition and plan.
[2018-03-08] MEDS: SODIUM CHLORIDE 0.9% 1000ML 1,000 ML IV SCH ×2 (01:01→13:10)
[2018-03-08] MEDS: CEFTRIAXONE SOD INJ 1 GM in DEXTROSE 5% ADD-VANTAGE 50ML 50 ML IV SCH (01:01)
[2018-03-08] MEDS: HYDROmorphone INJ 2 MG/ML SYR/VIAL IV PRN ×2 (05:54→09:08)
--- NOTE | 2018-03-08 06:54 | DIAGNOSTIC IMAGING REPORT ---
CT OF THE ABDOMEN AND PELVIS WITHOUT CONTRAST, STONE PROTOCOL CLINICAL HISTORY: Right flank/abdominal pain. COMPARISON STUDY: CT of the chest and abdomen May 13, 2009 and right upper quadrant ultrasound March 07, 2018. TECHNIQUE: Helical axial images of the abdomen and pelvis were obtained without IV or oral contrast according to renal stone protocol. A dose lowering technique was utilized adhering to the principles of ALARA. FINDINGS: An 8 x 6 mm proximal right ureteral calculus results in moderate right hydronephrosis. There is moderate perinephric infiltration. No additional ureteral calculi are present. A 5 mm left renal calculus is present. A water attenuation 3.4 cm lesion within the lower pole of the right kidney was shown to represent a cyst on prior ultrasound. There are gallstones within the gallbladder. There is no biliary or pancreatic ductal dilatation. Unenhanced images of liver, spleen and adrenal glands are unremarkable. There is no evidence for a bowel obstruction. The appendix is normal. There is colonic diverticulosis without evidence for acute diverticulitis. The prostate gland is surgically absent. There is no lymphadenopathy. There are postsurgical findings within the spine. There are no suspicious osseous lesions. The appendix is normal. Note is made of endovascular coils within left lower lobe arteriovenous malformations. Postprocedural assessment is suboptimal on this unenhanced exam. IMPRESSION: 1. 8 mm x 6 mm proximal right ureteral calculus which results in moderate right hydronephrosis. 2. 5 mm left renal calculus. 3. Cholelithiasis. 4. Colonic diverticulosis without evidence for acute diverticulitis. Electronically signed by: Kody Castillo M.D. 03/08/2018 6:52 AM Dictated Date/Time: 03/08/2018 6:44 AM
--- NOTE | 2018-03-08 08:08 | Urology Consultation ---
History General Date of Service: March 08, 2018. Chief Complaint: right flank pain Primary Care Physician: Keith Kang Jr,D.O. Pt seen a urologist before?: No History of Present Illness 62 yo male admitted to [facility] with c/o right flank pain that started 5 days ago while mowing the grass. CT scan showing a 8x6mm proximal right ureteral stone. The pt has no previous hx of stones. He c/o right flank pain 5/10 this morning. Denies n/v. Denies dysuria or hematuria. He is currently afebrile. White count is 11.47. Cr noted to be 1.67. Baseline of 1.00. Imaging Imaging: CT Laboratory Last 24 Hours Test 03/07/18 19:45 03/07/18 20:03 White Blood Count 11.47 K/uL Red Blood Count 4.21 M/uL Hemoglobin 13.6 g/dL Hematocrit 39.6 % Mean Corpuscular Volume 94.1 fL Mean Corpuscular Hemoglobin 32.3 pg Mean Corpuscular Hemoglobin Concent 34.3 g/dl Platelet Count 189 K/uL Mean Platelet Volume 11.1 fL Neutrophils (%) (Auto) 76.1 % Lymphocytes (%) (Auto) 14.7 % Monocytes (%) (Auto) 6.9 % Eosinophils (%) (Auto) 1.7 % Basophils (%) (Auto) 0.3 % Neutrophils # (Auto) 8.73 K/uL Lymphocytes # (Auto) 1.69 K/uL Monocytes # (Auto) 0.79 K/uL Eosinophils # (Auto) 0.20 K/uL Basophils # (Auto) 0.03 K/uL RDW Standard Deviation 43.1 fL RDW Coefficient of Variation 12.5 % Immature Granulocyte % (Auto) 0.3 % Immature Granulocyte # (Auto) 0.03 K/uL Sodium Level 140 mmol/L Potassium Level 3.6 mmol/L Chloride Level 107 mmol/L Carbon Dioxide Level 26 mmol/L Anion Gap 7.0 mmol/L Blood Urea Nitrogen 18 mg/dl Creatinine 1.67 mg/dl Est Creatinine Clear Calc Drug Dose 56.4 ml/min Estimated GFR () 49.7 Estimated GFR (Non- 42.9 BUN/Creatinine Ratio 11.0 Random Glucose 107 mg/dl Calcium Level 8.4 mg/dl Total Bilirubin 0.5 mg/dl Direct Bilirubin 0.1 mg/dl Aspartate Amino Transf (AST/SGOT) 22 U/L Alanine Aminotransferase (ALT/SGPT) 28 U/L Alkaline Phosphatase 69 U/L Total Protein 7.4 gm/dl Albumin 3.5 gm/dl Lipase 158 U/L Urine Color YELLOW Urine Appearance CLEAR Urine pH 5.0 Urine Specific [place] 1.029 Urine Protein NEG Urine Glucose (UA) NEG Urine Ketones NEG Urine Occult Blood NEG Urine Nitrite NEG Urine Bilirubin NEG Urine Urobilinogen NEG Urine Leukocyte Esterase NEG Past History other (lumbar stenosis) Past Surgical History: orthopedic surgery (wrist surgery), spinal surgery Family History non-contributory Social History Hx Tobacco Use In Past Year?: Yes Smoking: other (current someday smoker) Alcohol: never Drug use: none Marital status: Housing status: lives with family Immunizations History of Influenza Vaccine: No History of Tetanus Vaccine?: Unknown History of Pneumococcal: Unknown History of Hepatitis B Vaccine: Unknown History of MDRO No Allergies Coded Allergies: Mushroom Extract Complex (Verified Allergy, Unknown, ANAPHYLAXIS, 07/07/17) PT STATES HE IS TOLD TO STAY AWAY FROM ALL [facility] NO KNOWN DRUG ALLERGIES (Verified Allergy, Unknown, NKDA, 07/07/17) Medications Home Medications: Home Meds and Scripts Medications Dose Route/Sig Max Daily Dose Days Date Category Clinoril (Sulindac) 200 Mg Tab 200 Mg PO BID 03/07/18 Reported Vitamin D3 (Cholecalciferol) 2,000 Unit Cap 2,000 Inter.unit PO DAILY 03/07/18 Reported Hyzaar 12.5MG/50MG (HCTZ/Losartan Potassium) Tab 1 Tab PO DAILY 03/07/18 Reported Ferrous Sulfate 27 Mg Tab 27 Mg PO DAILY 03/07/18 Reported Zinc (Zinc Gluconate) 50 Mg Tab 50 Mg PO HS 03/07/18 Reported Pravastatin Sodium (Pravastatin Sod) 10 Mg Tab 10 Mg PO HS 03/07/18 Reported Vitamin B12 (Cyanocobalamin) 1,000 Mcg Tab 1,000 Mcg PO QAM 06/16/17 Reported Amoxil (Amoxicillin) 500 Mg Cap 500 Mg PO UD PRN 06/16/17 Reported Ecotrin Or Generic (Aspirin) 81 Mg Tab 81 Mg PO QAM 02/07/12 Reported Multivitamin (Multivitamins) Tab 1 Tab PO QAM 05/13/09 Reported Inpatient Medications: Current Inpatient Medications Medications (Trade) Dose Ordered Sig/Sarahy Route Start Time Stop Time Status Last Admin Dose Admin Ondansetron HCl (Zofran Inj) 4 mg Q6H PRN IV 03/08/18 00:15 04/07/18 00:14 Hydromorphone HCl (Dilaudid Inj) 1 mg Q2H PRN IV 03/08/18 00:15 03/22/18 00:14 03/08/18 05:54 1 MG Acetaminophen 100 ml @ 400 mls/hr Q8H PRN IV 03/08/18 00:15 04/07/18 00:14 Acetaminophen (Tylenol Tab) 650 mg Q4H PRN PO 03/08/18 00:15 04/07/18 00:14 Ceftriaxone Sodium 1 gm/ Dextrose 50 ml @ 100 mls/hr Q24H IV 03/08/18 01:00 03/18/18 00:59 03/08/18 01:01 100 MLS/HR Pantoprazole Sodium 40 mg/ Syringe 10 ml @ 5 mls/min DAILY@11 IV 03/08/18 11:00 04/07/18 10:59 Sodium Chloride 1,000 ml @ 80 mls/hr [id number] IV 03/08/18 01:30 04/07/18 01:29 03/08/18 01:01 80 MLS/HR Review of Systems Review of Systems Constitutional: No fever, No chills Eyes: No double vision Neurological: No dizzy Endocrine: No excessive thirst Gastrointestinal: + abdominal pain (right flank pain 5/10 ), No nausea, No vomiting Cardiovascular: No chest pain Respiratory: No shortness of breath Skin: No rash Musculoskeletal: No back pain Male : No painful urination, No blood in urine Physical Exam Vital Signs: Vital Signs Past 12 Hours Date Time Temp Pulse Resp B/P (MAP) Pulse Ox O2 Delivery O2 Flow Rate FiO2 03/08/18 07:19 36.9 66 18 134/82 (99) 91 Room Air 03/08/18 00:43 36.8 68 18 144/91 Room Air 03/08/18 00:35 Room Air 03/08/18 00:13 71 16 145/89 92 Room Air 03/07/18 23:01 77 16 147/92 94 Room Air 03/07/18 21:07 63 16 145/94 93 Physical Exam: General Appearance: no apparent distress Eyes: bilateral eyes normal inspection ENT: hearing grossly normal Neck: no JVD Respiratory/Chest: no respiratory distress, no accessory muscle use Cardiovascular: no JVD Extremities: normal inspection Neurologic/Psychiatric: alert, normal mood/affect, oriented x 3 Skin: normal color Assessment & Plan Assessment & Plan Treatment Planned: cystoscopy w/ stent A/P: 8 x 6mm proximal right ureteral stone AFVSS. Tx options discussed with the pt today have included a trial of passage with MET vs cysto with right ureteral stent placement. The pt prefers cysto with right ureteral stent placement today. Risks and benefits of the procedure discussed with the pt. All questions answered. Pt agrees to the procedure at this time. Will order a pre-op chest x-ray and EKG. Will check a KUB for stone visibility as well. He is currently NPO. Will order Cipro pre-op. Thanks for the consult. Will continue to follow along with primary service. Thanks for allowing us to participate in this pt's care.
[2018-03-08] MEDS ORDERED: CIPROFLOXACIN / D5W 400 MG IV SCH (08:30)
--- NOTE | 2018-03-08 08:38 | DIAGNOSTIC IMAGING REPORT ---
CHEST 2 VIEWS ROUTINE CLINICAL HISTORY: Preoperative evaluation. COMPARISON STUDY: Chest radiograph June 16, 2017. FINDINGS: Several endovascular coils are noted within the left lower lobe. No pneumothorax or pleural effusion is noted. There is no evidence for pulmonary edema. Cardiomediastinal silhouette is within normal limits. IMPRESSION: No acute cardiopulmonary findings. Electronically signed by: Kody Castillo M.D. 03/08/2018 8:36 AM Dictated Date/Time: 03/08/2018 8:35 AM
--- NOTE | 2018-03-08 08:41 | DIAGNOSTIC IMAGING REPORT ---
KUB CLINICAL HISTORY: Right ureteral stone. COMPARISON STUDY: CT of the abdomen and pelvis March 07, 2018. FINDINGS: An 8 mm proximal right ureteral calculus is unchanged in position since CT performed March 07, 2018. Pelvic calcifications represent phleboliths. There are postoperative findings within the spine. Gallstones are noted. Left lower lobe endovascular coils are noted. IMPRESSION: No change in position of an 8 mm proximal right ureteral calculus. Electronically signed by: Kody Castillo M.D. 03/08/2018 8:39 AM Dictated Date/Time: 03/08/2018 8:37 AM
[2018-03-08 09:09] LABS: BASO % 0.1 %; BASO ABS # 0.02 K/uL (0-0.2); EOS % 0.3 %; EOS ABS # 0.04 K/uL (0-0.5); HEMATOCRIT 37.7 % (42-52); HEMOGLOBIN 12.8 g/dL (14.0-18.0); IG# 0.04 K/uL (0.00-0.02); LYMPH % 7.4 %; LYMPH ABS # 0.99 K/uL (1.2-3.4); MEAN CORPUSCULAR HEMOGLOBIN 32.2 pg (25-34); MEAN PLATELET VOLUME 11.3 fL (7.4-10.4); MONO % 7.5 %; MONO ABS # 1.01 K/uL (0.11-0.59); NEUT % 84.4 %; NEUT ABS # 11.33 K/uL (1.4-6.5); PLATELET COUNT 188 K/uL (130-400); RED CELL DISTRIBUTION WIDTH CV 12.6 % (11.5-14.5); RED CELL DISTRIBUTION WIDTH SD 43.5 fL (36.4-46.3); WHITE BLOOD COUNT 13.43 K/uL (4.8-10.8)
[2018-03-08 09:47] LABS: CALCIUM 8.1 mg/dl (8.5-10.1); CREATININE 1.76 mg/dl (0.60-1.40); POTASSIUM 3.9 mmol/L (3.5-5.1)
[2018-03-08] MEDS: PANTOprazole INJ 40 MG in SYRINGE 0 ML IV SCH (10:59)
[2018-03-08] MEDS ORDERED: PANTOprazole INJ 40 MG in SYRINGE 0 ML IV SCH (11:00)
--- NOTE | 2018-03-08 12:12 | Hospitalist Progress Note ---
Hospitalist Progress Note Date of Service March 08, 2018. (Cristiane Kwan PA-C) Subjective Pt evaluation today including: conversation w/ patient, physical exam, chart review, lab review, review of studies Pain: None PO Intake: NPO Voiding: no voiding problems The patient was seen and examined this afternoon. Pt reports feeling ok right now, his pain is adequately controlled, and was sleeping when I walked into the room. He reports never having a kidney stone before. He typically does drink a 12oz glass of icetea and 8oz of coffee 3x per week, however no excessive caffeine use. He is awaiting stent placement later this afternoon. Pt had voided about 1 hr ago, denies hematuria. Constitutional: No fever, No chills, No sweats, No fatigue Eyes: No redness, No diplopia ENT: No nasal symptoms, No sore throat Respiratory: + problem reported (hx smoking x 28 yrs, 5-6 cigs a day), No cough, No sputum, No shortness of breath Cardiovascular: No chest pain, No edema Abdomen: No pain, No nausea, No vomiting, No diarrhea, No constipation Musculoskeletal: + swelling, No muscle pain Male : + see HPI Neurologic: No weakness, No numbness/tingling (Cristiane Kwan PA-C ) Objective Vital Signs Date Time Temp Pulse Resp B/P (MAP) Pulse Ox O2 Delivery O2 Flow Rate FiO2 03/08/18 07:35 Room Air 03/08/18 07:19 36.9 66 18 134/82 (99) 91 Room Air 03/08/18 00:43 36.8 68 18 144/91 Room Air 03/08/18 00:35 Room Air 03/08/18 00:13 71 16 145/89 92 Room Air 03/07/18 23:01 77 16 147/92 94 Room Air 03/07/18 21:07 63 16 145/94 93 03/07/18 19:28 36.7 72 18 160/100 97 Room Air (Cristiane Kwan PA-C) Physical Exam General Appearance: WD/WN, no apparent distress Eyes: PERRL, EOMI ENT: hearing grossly normal, pharynx normal Neck: no adenopathy, no JVD Respiratory/Chest: lungs clear, no respiratory distress, no accessory muscle use, + pertinent finding (on RA) Cardiovascular: regular rate, rhythm, no murmur Abdomen: normal bowel sounds, non tender, soft Extremities: non-tender, no calf tenderness, + pedal edema (1+ pitting edema in the LLE, trace pitting in the RLE) Neurologic/Psychiatric: alert, normal mood/affect, oriented x 3 Skin: normal color, warm/dry (Cristiane Kwan, MAIK) Laboratory Results Last 24 Hours Test 03/07/18 19:45 03/07/18 20:03 03/08/18 08:55 White Blood Count 11.47 K/uL 13.43 K/uL Red Blood Count 4.21 M/uL 3.97 M/uL Hemoglobin 13.6 g/dL 12.8 g/dL Hematocrit 39.6 % 37.7 % Mean Corpuscular Volume 94.1 fL 95.0 fL Mean Corpuscular Hemoglobin 32.3 pg 32.2 pg Mean Corpuscular Hemoglobin Concent 34.3 g/dl 34.0 g/dl Platelet Count 189 K/uL 188 K/uL Mean Platelet Volume 11.1 fL 11.3 fL Neutrophils (%) (Auto) 76.1 % 84.4 % Lymphocytes (%) (Auto) 14.7 % 7.4 % Monocytes (%) (Auto) 6.9 % 7.5 % Eosinophils (%) (Auto) 1.7 % 0.3 % Basophils (%) (Auto) 0.3 % 0.1 % Neutrophils # (Auto) 8.73 K/uL 11.33 K/uL Lymphocytes # (Auto) 1.69 K/uL 0.99 K/uL Monocytes # (Auto) 0.79 K/uL 1.01 K/uL Eosinophils # (Auto) 0.20 K/uL 0.04 K/uL Basophils # (Auto) 0.03 K/uL 0.02 K/uL RDW Standard Deviation 43.1 fL 43.5 fL RDW Coefficient of Variation 12.5 % 12.6 % Immature Granulocyte % (Auto) 0.3 % 0.3 % Immature Granulocyte # (Auto) 0.03 K/uL 0.04 K/uL Sodium Level 140 mmol/L 140 mmol/L Potassium Level 3.6 mmol/L 3.9 mmol/L Chloride Level 107 mmol/L 108 mmol/L Carbon Dioxide Level 26 mmol/L 26 mmol/L Anion Gap 7.0 mmol/L 6.0 mmol/L Blood Urea Nitrogen 18 mg/dl 17 mg/dl Creatinine 1.67 mg/dl 1.76 mg/dl Est Creatinine Clear Calc Drug Dose 56.4 ml/min 53.3 ml/min Estimated GFR () 49.7 46.7 Estimated GFR (Non- 42.9 40.3 BUN/Creatinine Ratio 11.0 9.7 Random Glucose 107 mg/dl 118 mg/dl Calcium Level 8.4 mg/dl 8.1 mg/dl Total Bilirubin 0.5 mg/dl Direct Bilirubin 0.1 mg/dl Aspartate Amino Transf (AST/SGOT) 22 U/L Alanine Aminotransferase (ALT/SGPT) 28 U/L Alkaline Phosphatase 69 U/L Total Protein 7.4 gm/dl Albumin 3.5 gm/dl Lipase 158 U/L Urine Color YELLOW Urine Appearance CLEAR Urine pH 5.0 Urine Specific [place] 1.029 Urine Protein NEG Urine Glucose (UA) NEG Urine Ketones NEG Urine Occult Blood NEG Urine Nitrite NEG Urine Bilirubin NEG Urine Urobilinogen NEG Urine Leukocyte Esterase NEG (Cristiane Kwan, MAIK) Assessment and Plan 62 yo M with 7 mm right proximal ureteral stone/right hydronephrosis-- R proximal ureteral stone R hydronephrosis - CT abd showing 8x6mm stone - Ceftriaxone 1 g IV daily (started 03/07) - Follow urine culture and sensitivity report. - NSS at 80 ml/hr - Consult urology - planned for stent placement today, continue NPO until after procedure Acute kidney injury/hypertension-- Creatinine 1.67 upon admission and still elevated at 1.76 today. - IVF as above - Follow PRP and magnesium serially. - Hold HCTZ/losartan, aspirin and sulindac. HTN Hx Stroke with hx left sided weakness now resolved Pulmonary Atrioventricular fistula - BP slightly elevated in 140s/90s this morning likely due to pain and holding antihypertensives as above d/t GLADYS. - Follow. Hyperlipidemia-- - hold pravastatin while n.p.o. Chronic tobacco use - smokes cigarettes x 28 years at this point, denies willingness to quit currently, offered nicotine patch however he declines at this time. Vitamin B12 deficiency-- - Hold cyanocobalamin 1000 mcg p.o. every morning until taking p.o. Hx prostate cancer- stable Chronic lower back pain - stable DVT ppx: teds, scds, ambulatory CODE: FULL Disposition: From home. Possible dc tomorrow per urology (Cristiane Kwan, MAIK) Reviewed: Pt Seen/Exam by Me (Akua Tai MD) History Physician Hose Maker supervision Note: I interviewed and examined the patient. Discussed with SHERRI Kwan and agree with findings and plan as documented in the note. Any exceptions or clarifications are listed here: Patient feeling much improved since admission and after placement of stent in his right ureter. Denies any further right flank or abdominal pain. He is tolerating p.o. without nausea or vomiting. Denies chest pain shortness of breath. Vitals reviewed Gen: AAOx3, NAD HEENT: anicteric sclerae, EOMI CV: RRR no mgr nl S1S2 Pulm: CTAB no wcr Abd: +BS soft NT ND no masses or hernias Ext: no edema, 2+ DP pulses Skin: no rashes, warm/dry 62-year-old male with history as above, here with right ureterolithiasis and acute kidney injury. -Continue IV fluids and follow creatinine -For elevated blood pressure-his home HCTZ/losartan is on hold for GLADYS-will order IV hydralazine 10 mg q. 8 as needed SBP greater than 180 or DBP greater than 110, consider adding on amlodipine tomorrow if to be discharged and creatinine still not back to normal -Urinalysis looked normal, urine culture pending, but can likely discontinue Rocephin tomorrow -Will likely discharge to home tomorrow if creatinine improved and will need follow-up with urology for planned definitive stone treatment -Has noted asymptomatic cholelithiasis on imaging-should consider elective cholecystectomy with general surgery as an outpatient after recovery from kidney stone Documented By: Akua Tai (Akua Tai MD)
[2018-03-08] MEDS ORDERED: PROPOFOL IV EMULSION 10 MG/ML 20 ML VIAL ONE (15:37)
[2018-03-08] MEDS ORDERED: LIDOCAINE HCL 2% 2 ML VIAL (20MG/ML) ONE (15:37)
[2018-03-08] MEDS ORDERED: MIDAZOLAM HCL 1 MG/ML 2ML VIAL ONE (15:38)
[2018-03-08] MEDS ORDERED: FENTANYL CITRATE INJ 50 MCG/1 ML 2 ML VIAL ONE (15:38)
[2018-03-08] MEDS ORDERED: Cysto-Conray II 17.2% 250ML BOTTLE ONE (16:09)
--- NOTE | 2018-03-08 16:20 | [facility] Operative Report ---
Operative Report Operative Date March 08, 2018. Pre-Operative Diagnosis Right ureteral stone Post-Operative Diagnosis Right ureteral stone Procedure(s) Performed Cystoscopy, Right Ureteral Stent Insertion (6 Haitian by 22-32cm) Surgeon Dr. Lal Estimated Blood Loss 0 cc Findings Some purulent urine in the right kidney Specimens none per surgeon Drains Ureteral stent Anesthesia Type MAC Complication(s) none Disposition yes Recovery Room / PACU Indications Renal colic Description of Procedure The patient was identified in the preoperative holding area, appropriate informed consents reviewed and completed he was transported to the operating suite. Upon arrival he received appropriate preoperative antibiotics in the form of ciprofloxacin. Adequate sedation was achieved and he was placed in dorsal lithotomy position where he was sterilely prepped and draped in standard fashion. I began the case by passing a 22 Haitian cystoscope with 30 lens. Inspection of the urethra revealed no abnormalities. His prostate was relatively small in size. Section of the bladder revealed healthy appearing bladder mucosa. Ureteral orifices were in orthotopic position. I cannulated the right ureteral orifice with a 5 Haitian open-ended catheter and a sensor wire. Wire advanced the kidney without difficulty. I cannot readily identify the ureteral fragment seen on CT on the fluoroscope within the OR. I subsequently placed a 6 Haitian by 2232 cm double-J ureteral stent seeing a good curl in the kidney as well as the bladder. I then decompressed the bladder and concluded the case. He was reversed from anesthesia and taken to the recovery room in stable condition. I attest to the content of the Intraoperative Record and any orders documented therein. Any exceptions are noted below.
--- NOTE | 2018-03-08 16:36 | Anesthesiology Progress Note ---
Anesthesia Post Op Note Date & Time March 08, 2018 at 16:36 Vital Signs Pain Intensity: 5.0 Vital Signs Past 12 Hours Date Time Temp Pulse Resp B/P (MAP) Pulse Ox O2 Delivery O2 Flow Rate FiO2 03/08/18 15:17 37.1 65 16 146/92 (110) 95 Room Air 03/08/18 07:35 Room Air 03/08/18 07:19 36.9 66 18 134/82 (99) 91 Room Air Notes Mental Status: alert / awake / arousable, participated in evaluation Pt Amnestic to Procedure: Yes Nausea / Vomiting: adequately controlled Pain: adequately controlled Airway Patency, RR, SpO2: stable & adequate BP & HR: stable & adequate Hydration State: stable & adequate Anesthetic Complications: no major complications apparent
--- NOTE | 2018-03-08 16:52 | DIAGNOSTIC IMAGING REPORT ---
KUB HISTORY: 62 years-old Male RT CYSTO right-sided cystourethrogram with stent placement COMPARISON: KUB 03/08/2017, CT 03/07/2018. TECHNIQUE: Single spot fluoroscopic image of the right upper abdomen was obtained utilizing 6.2 seconds fluoroscopy time FINDINGS: Single image demonstrates the proximal portion of a right ureteral stent which has been placed in the interval. Previously described ureteral calculus is not seen on this image. Cholelithiasis. Degenerative changes of the imaged spine are noted. IMPRESSION: Fluoroscopic assistance as above. Please see procedural report for further details. The above report was generated using voice recognition software. It may contain grammatical, syntax or spelling errors. Electronically signed by: Oracio Araujo M.D. 03/08/2018 4:51 PM Dictated Date/Time: 03/08/2018 4:50 PM
[2018-03-08] MEDS ORDERED: ATROPINE SULFATE 0.1 MG/ML 5ML SYR IV PRN (17:00)
[2018-03-08] MEDS ORDERED: EpHEDrine SULFATE INJ 50 MG/ML AMP IV PRN (17:00)
[2018-03-08] MEDS ORDERED: HydrALAZINE HCL 20 MG/ML VIAL IV. PRN (18:45)
[2018-03-08] MEDS ORDERED: PRAVASTATIN SOD 10 MG TAB PO SCH (21:00)
[2018-03-09] MEDS: SODIUM CHLORIDE 0.9% 1000ML 1,000 ML IV SCH (01:17)
[2018-03-09] MEDS: CEFTRIAXONE SOD INJ 1 GM in DEXTROSE 5% ADD-VANTAGE 50ML 50 ML IV SCH (01:17)
[2018-03-09 04:00] VITALS: BP 151/80; PULSE 66; TEMP 36.9; O2SAT 94
[2018-03-09 07:01] VITALS: BP 151/91; PULSE 61; TEMP 36.7; O2SAT 93
[2018-03-09 07:25] LABS: BASO % 0.3 %; BASO ABS # 0.03 K/uL (0-0.2); EOS % 2.3 %; HEMATOCRIT 34.8 % (42-52); IG# 0.02 K/uL (0.00-0.02); LYMPH % 17.1 %; LYMPH ABS # 1.51 K/uL (1.2-3.4); MEAN CELL VOLUME 94.3 fL (80-100); MEAN CORPUSCULAR HEMOGLOBIN 32.5 pg (25-34); MEAN CORPUSCULAR HGB CONC 34.5 g/dl (32-36); MEAN PLATELET VOLUME 11.6 fL (7.4-10.4); MONO % 9.1 %; NEUT ABS # 6.27 K/uL (1.4-6.5); PLATELET COUNT 157 K/uL (130-400); RED CELL DISTRIBUTION WIDTH CV 12.6 % (11.5-14.5); RED CELL DISTRIBUTION WIDTH SD 42.8 fL (36.4-46.3); WHITE BLOOD COUNT 8.83 K/uL (4.8-10.8)
[2018-03-09 08:04] LABS: CALCIUM 7.9 mg/dl (8.5-10.1); CREATININE 1.31 mg/dl (0.60-1.40)
[2018-03-09 08:41] LABS: POTASSIUM 3.5 mmol/L (3.5-5.1)
[2018-03-09] MEDS ORDERED: MULTIVITAMIN TAB PO SCH (09:00)
[2018-03-09] MEDS ORDERED: LOSARTAN/HCTZ 50-12.5 EA TAB PO SCH (09:30)
--- NOTE | 2018-03-09 09:33 | Progress Note ---
Subjective Date of Service: March 09, 2018. Subjective Pt evaluation today including: conversation w/ patient, physical exam, lab review Voiding: no voiding problems Pt doing well after right ureteral stent insertion yesterday - minimal stent bother (only when voiding) - no renal colic, etc - voiding adequately Review of Systems Abdomen: No pain, No nausea Male : + problem reported, No dysuria, No urinary frequency, No hematuria Objective Vital Signs Date Time Temp Pulse Resp B/P (MAP) Pulse Ox O2 Delivery O2 Flow Rate FiO2 03/09/18 07:25 Room Air 03/09/18 07:01 36.7 61 18 151/91 (111) 93 Room Air 03/09/18 04:00 36.9 66 18 151/80 (103) 94 Room Air 03/08/18 23:45 Room Air 03/08/18 23:06 36.7 66 20 151/86 (107) 92 Room Air 03/08/18 20:05 37.0 59 18 160/88 (112) 94 Room Air 03/08/18 19:15 36.7 64 18 153/86 (108) 94 Room Air 03/08/18 18:16 36.8 62 18 165/84 (111) 92 Room Air 03/08/18 17:30 36.7 58 18 155/102 (119) 94 Room Air 03/08/18 17:00 Room Air 03/08/18 17:00 36.5 63 16 150/91 (110) 93 Room Air 03/08/18 17:00 93 Room Air 03/08/18 16:52 59 7 03/08/18 16:52 60 7 96 03/08/18 16:51 159/93 03/08/18 16:47 61 10 94 03/08/18 16:47 63 10 03/08/18 16:46 145/89 03/08/18 16:44 37.0 62 16 145/89 (108) 95 Nasal Cannula 2 03/08/18 16:42 68 14 95 03/08/18 16:42 68 14 03/08/18 16:41 153/104 03/08/18 16:37 63 19 100 03/08/18 16:37 62 19 03/08/18 16:36 67 17 03/08/18 16:36 66 17 143/89 100 03/08/18 16:36 67 17 03/08/18 16:36 66 17 143/89 100 03/08/18 16:33 133/91 03/08/18 16:33 133/91 03/08/18 16:31 67 10 03/08/18 16:31 66 10 143/111 100 03/08/18 16:31 66 10 143/111 100 03/08/18 16:31 67 10 03/08/18 16:27 131/89 03/08/18 16:27 131/89 03/08/18 16:26 72 13 98 03/08/18 16:26 71 13 03/08/18 16:26 72 13 98 03/08/18 16:26 36.8 69 16 131/89 (110) 98 Nasal Cannula 2 03/08/18 16:26 71 13 03/08/18 15:17 37.1 65 16 146/92 (110) 95 Room Air Physical Exam General Appearance: WD/WN, no apparent distress Eyes: normal inspection ENT: hearing grossly normal Neck: no adenopathy Respiratory/Chest: no respiratory distress Cardiovascular: no edema Abdomen: non tender, soft Extremities: no pedal edema, no calf tenderness Neurologic/Psychiatric: alert, normal mood/affect, oriented x 3 Laboratory Results Last 24 Hours Test 03/09/18 07:13 03/09/18 08:17 White Blood Count 8.83 K/uL Red Blood Count 3.69 M/uL Hemoglobin 12.0 g/dL Hematocrit 34.8 % Mean Corpuscular Volume 94.3 fL Mean Corpuscular Hemoglobin 32.5 pg Mean Corpuscular Hemoglobin Concent 34.5 g/dl Platelet Count 157 K/uL Mean Platelet Volume 11.6 fL Neutrophils (%) (Auto) 71.0 % Lymphocytes (%) (Auto) 17.1 % Monocytes (%) (Auto) 9.1 % Eosinophils (%) (Auto) 2.3 % Basophils (%) (Auto) 0.3 % Neutrophils # (Auto) 6.27 K/uL Lymphocytes # (Auto) 1.51 K/uL Monocytes # (Auto) 0.80 K/uL Eosinophils # (Auto) 0.20 K/uL Basophils # (Auto) 0.03 K/uL RDW Standard Deviation 42.8 fL RDW Coefficient of Variation 12.6 % Immature Granulocyte % (Auto) 0.2 % Immature Granulocyte # (Auto) 0.02 K/uL Sodium Level 142 mmol/L Potassium Level mmol/L 3.5 mmol/L Chloride Level 111 mmol/L Carbon Dioxide Level 26 mmol/L Anion Gap 5.0 mmol/L Blood Urea Nitrogen 19 mg/dl Creatinine 1.31 mg/dl Est Creatinine Clear Calc Drug Dose 71.5 ml/min Estimated GFR () 66.7 Estimated GFR (Non- 57.5 BUN/Creatinine Ratio 14.3 Random Glucose 97 mg/dl Calcium Level 7.9 mg/dl Magnesium Level mg/dl 1.9 mg/dl Assessment and Plan POD #1 s/p R ureteral stent insertion for right renal colic and obstructing ureteral calc - stable for d/c home from a standpoint - my office will contact him today to arrange f/u
[2018-03-09] MEDS ORDERED: CIPROFLOXACIN 400MG / 200ML D5W IV ONE (11:00)
[2018-03-09] MEDS: PANTOprazole INJ 40 MG in SYRINGE 0 ML IV SCH (11:03)
--- NOTE | 2018-03-09 11:30 | Discharge Instructions ---
Discharge Instructions Date of Service March 09, 2018. Admission Reason for Admission: Hydronephrosis Of Rt Kidney, Rt Ureteral Calc Discharge Discharge Diagnosis / Problem: R ureteral calculus, R hydronephrosis Discharge Goals Goal(s): Decrease discomfort, Improve function, Increase independence, Improve disease control Activity Recommendations Activity Limitations: resume your previous activity Lifting Limitations: none, gradually increase as tolerated Exercise/Sports Limitations: rest today, gradually increase as tolerated May Resume Sexual Activity: when tolerated Shower/Bathe: no limitations Driving or Machine Use: no limitations . Instructions / Follow-Up Instructions / Follow-Up You were admitted to [facility] with R ureteral stone and R hydronephrosis and diagnosed with the same as well as acute kidney injury. During your stay here you were evaluated by Urology and underwent stent placement by Dr. Lal on 03/08/18. This stent will need to be removed at a later date, please discuss the timing of this with urology upon follow up appointment. Your kidney function improved prior to discharge. You were treated with intravenous fluids, antibiotics and pain medications. You did not need any antibiotics at time of discharge. Medications: Continue taking your other medications as prescribed. Stop taking sulindac until after any procedure being performed by Urology. This is an NSAID and can potentially increase your risk of bleeding. You may use tylenol as needed in the interim. Appointments: Follow up with PCP within 1 week. Follow up with urology as already scheduled within 1 week. Discuss stent removal with urology at your follow up. Current Hospital Diet Patient's current hospital diet: Regular Diet Discharge Diet Recommended Diet: Regular Diet Procedures Procedures Performed: Cystoscopy, Right Ureteral Stent Insertion (6 [place] by 22-32cm) Pending Studies Studies pending at discharge: yes List of pending studies: Urine Culture - have urology follow result and discuss at your follow up appointment this Wednesday. Medical Emergencies . Who to Call and When: Medical Emergencies: If at any time you feel your situation is an emergency, please call 911 immediately. . Non-Emergent Contact Non-Emergency issues call your: Primary Care Provider, Urologist Call Non-Emergent contact if: you have a fever, temperature is above 100.5, your pain is not controlled, your pain is worsening, your pain is unusual for you, your pain is concerning you, you have any medication questions . Past History Medical & Surgical History: (1) GLADYS (acute kidney injury) (2) Right ureteral calculus (3) Hydronephrosis of right kidney . "Provider Documentation" section prepared by Dilcia Kwan. . [place] Drug Monitoring Program Search Results: no issues identified
[2018-03-09] MEDS ORDERED: RXC5 PO (12:27)
[2018-03-09] MEDS ORDERED: PHEN-774 PO (12:27)
[2018-03-09] MEDS ORDERED: DTR/5 PO (12:27)
[2018-03-09 13:37] VITALS: BP 151/91; PULSE 61; TEMP 36.7; O2SAT 93
--- NOTE | 2018-03-09 15:18 | Discharge Summary ---
Discharge Summary Date of Service March 09, 2018. Discharge Summary Admission Date: Mar 07, 2018 at 23:53 Discharge Date: March 09, 2018 Discharge Disposition: Home Principal Diagnosis: R ureteral stone, R hydronephrosis Problems/Secondary Diagnoses: Medical Problems: (1) GLAYDS (acute kidney injury) (2) Hydronephrosis of right kidney (3) Lumbar stenosis with neurogenic claudication (4) Right ureteral calculus Hx prostate cancer Chronic tobacco use HTN HLD Hx Stroke with hx left sided weakness now resolved Immunizations: Have You Had Influenza Vaccine: No History of Tetanus Vaccine?: Unknown History of Pneumococcal: Unknown History of Hepatitis B Vaccine: Unknown Procedures: 03/08/18: s/p R ureteral stent insertion for right renal colic and obstructing ureteral calc GALLBLADDER-ABD LIMITED 03/07/18 IMPRESSION: 1. Several gallstones within the gallbladder neck. 2. Normal caliber bile ducts. 3. Mild fatty infiltration of liver. 4. 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 CT OF THE ABDOMEN AND PELVIS WITHOUT CONTRAST, STONE PROTOCOL 03/08/18 IMPRESSION: 1. 8 mm x 6 mm proximal right ureteral calculus which results in moderate right hydronephrosis. 2. 5 mm left renal calculus. 3. Cholelithiasis. 4. Colonic diverticulosis without evidence for acute diverticulitis. KUB 03/08/18 IMPRESSION: No change in position of an 8 mm proximal right ureteral calculus. CHEST 2 VIEWS ROUTINE 03/08/18 FINDINGS: Several endovascular coils are noted within the left lower lobe. No pneumothorax or pleural effusion is noted. There is no evidence for pulmonary edema. Cardiomediastinal silhouette is within normal limits. IMPRESSION: No acute cardiopulmonary findings. KUB 03/08/18 FINDINGS: Single image demonstrates the proximal portion of a right ureteral stent which has been placed in the interval. Previously described ureteral calculus is not seen on this image. Cholelithiasis. Degenerative changes of the imaged spine are noted. IMPRESSION: Fluoroscopic assistance as above. Please see procedural report for further details. Consultations: Urology Medication Reconciliation New Medications: Oxybutynin Chloride (Ditropan) 5 Mg Tab 1 TAB PO BID PRN for bladder pain, #20 TAB 0 Refills Oxycodone HCl (Oxycodone HCl) 5 Mg Tab 5 MG PO Q6H PRN for Pain, #15 TABS 0 Refills Phenazopyridine Hcl (Pyridium) 100 Mg Tab 100 MG PO TID PRN for urinary discomfort, #15 TAB 0 Refills this product may turn your urine or tears orange Continued Medications: Amoxicillin (Amoxil) 500 Mg Cap 500 MG PO UD PRN for Prior to Dental Procedures, CAP Cholecalciferol (Vitamin D3) 2,000 Unit Cap 2000 INTER.UNIT PO DAILY, CAP Cyanocobalamin (Vitamin B12) 1,000 Mcg Tab 1000 MCG PO QAM Ferrous Sulfate (Ferrous Sulfate) 27 Mg Tab 27 MG PO DAILY Hctz/Losartan (Hyzaar 12.5MG/50MG) Tab 1 TAB PO DAILY, TAB Multivitamin (Multivitamin) Tab 1 TAB PO QAM Pravastatin Sod (Pravastatin Sodium) 10 Mg Tab 10 MG PO HS Zinc Gluconate (Zinc) 50 Mg Tab 50 MG PO HS Discontinued Medications: Aspirin Enteric Coated (Ecotrin Or Generic) 81 Mg Tab 81 MG PO QAM Sulindac (Clinoril) 200 Mg Tab 200 MG PO BID, TAB Discharge Exam The patient was seen and examined this morning. Pt reports doing well today. He has minimal dysuria at the end of urination stream. Denies any hematuria. No flank or abdominal pain. Pt anticipating discharge to home today. ROS: Constitutional: No fever, No chills, No sweats, No fatigue Eyes: No redness, No diplopia ENT: No nasal symptoms, No sore throat Respiratory: + problem reported (hx smoking x 28 yrs, 5-6 cigs a day), No cough, No sputum, No shortness of breath Cardiovascular: No chest pain, No edema Abdomen: No pain, No nausea, No vomiting, No diarrhea, No constipation Musculoskeletal: + swelling, No muscle pain Male : + see HPI Neurologic: No weakness, No numbness/tingling PE: General Appearance: WD/WN, no apparent distress Eyes: PERRL, EOMI ENT: hearing grossly normal, pharynx normal Neck: no adenopathy, no JVD Respiratory/Chest: lungs clear, no respiratory distress, no accessory muscle use, + pertinent finding (on RA) Cardiovascular: regular rate, rhythm, no murmur Abdomen: normal bowel sounds, non tender, soft Extremities: non-tender, no calf tenderness, + pedal edema (1+ pitting edema in the LLE, trace pitting in the RLE) Neurologic/Psychiatric: alert, normal mood/affect, oriented x 3 Skin: normal color, warm/dry Hospital Course 62 yo M with 7 mm right proximal ureteral stone/right hydronephrosis-- R proximal ureteral stone R hydronephrosis - CT abd showing 8x6mm stone - s/p stenting by urology - Ceftriaxone 1 g IV daily (started 03/07) - no need to continue antibiotics as UA essentially negative - pcp/urology to follow culture - Given pyridium and ditropan upon discharge - NSS at 80 ml/hr during admission - pt tolerated diet w/o issues. Cr improved. GLADYS resolved. - Consult urology - planned for stent placement today, continue NPO until after procedure Acute kidney injury/hypertension-- Creatinine 1.67 upon admission - improved back down to 1.3 - Follow PRP and magnesium serially. - Resume HCTZ/losartan Cont aspirin - STOP sulindac - should not take this prior to any procedure (ie stent removal) HTN Hx Stroke with hx left sided weakness now resolved Pulmonary Atrioventricular fistula - BP slightly elevated in 140s/90s - resume hyzaar Hyperlipidemia-- - hold pravastatin while n.p.o. Chronic tobacco use - smokes cigarettes x 28 years at this point, denies willingness to quit currently, offered nicotine patch however he declines at this time. Vitamin B12 deficiency-- - Hold cyanocobalamin 1000 mcg p.o. every morning until taking p.o. Hx prostate cancer- stable Chronic lower back pain - stable DVT ppx: teds, scds, ambulatory CODE: FULL Disposition: From home. Dc home today Total Time Spent: Greater than 30 minutes This includes examination of the patient, discharge planning, medication reconciliation, and communication with other providers. Discharge Instructions Please refer to the electronic Patient Visit Report (Discharge Instructions) for additional information. Follow-Up Follow up with your Primary Care Provider within 1 week. Follow up with urology as already scheduled on Wednesday. Additional Copies To Keith Kang Jr,Nesha
== END 2018-03-09 14:08 | disposition home or self-care (01) | DRG 694 ==
LOC: C.EDB 19:26 → C.MSW 23:53 → ENRESERV 03-08 00:06
PROVIDERS: ADMIT Hospitalist; ATTEND Internal Medicine
PROC: 0T768DZ Dilation of Right Ureter with Intraluminal Device, Via Natural or Artificial Opening Endoscopic (ICD-10-PCS; principal; 2018-03-08 14:00)
DX: N13.2 Hydronephrosis with renal and ureteral calculous obstruction (principal); N17.9 Acute kidney failure, unspecified; I10 Essential (primary) hypertension; E78.5 Hyperlipidemia, unspecified; E53.8 Deficiency of other specified B group vitamins; G89.29 Other chronic pain; M54.5 Low back pain; F17.210 Nicotine dependence, cigarettes, uncomplicated; Z86.73 Personal history of transient ischemic attack (TIA), and cerebral infarction without residual deficits; Z79.82 Long term (current) use of aspirin; Z79.899 Other long term (current) drug therapy; Z91.018 Allergy to other foods

== ENCOUNTER → 2018-03-18 | Day surgery (SDC) | payer OTHER ==
[2018-03-14 13:34] VITALS: Ht 177.8 cm; Wt 111.4 kg
[~2018-03-18] VITALS: Ht 177.8 cm; Wt 111.4 kg
[~2018-03-18] MED LIST changes: -ASPI-319 PO; +ASPI-435 PO; +ATROPINE SULFATE 0.1 MG/ML 5ML SYR IV PRN; +CHOL2000 PO; +CIPROFLOXACIN 400MG / D5W IV SCH; +CLB/200 PO; +DEXAMETHASONE SOD INJ 4 MG/ML VIAL ONE; +DTR/5 PO; +EpHEDrine SULFATE INJ 50 MG/ML AMP IV PRN; +EpHEDrine SULFATE INJ 50 MG/ML AMP ONE; +FENTANYL CITRATE INJ 50 MCG/1 ML 2 ML VIAL IV PRN; +FENTANYL CITRATE INJ 50 MCG/1 ML 2 ML VIAL ONE; -FERR1TAB61 PO; +FERR83TA2 PO; +HYZ/50125 PO; +LACTATED RINGER'S 1000ML 1,000 ML IV SCH; +LIDOCAINE HCL 2% 2 ML VIAL (20MG/ML) ONE; -LOSA50TA6 PO; +MIDAZOLAM HCL 1 MG/ML 2ML VIAL ONE; +ONDANSETRON INJ 2 MG/ML 2 ML VIAL ONE; +OXYCODONE/ACETAMINOPHEN 5-325 TAB PO PRN; +PHEN-774 PO; -PRAV20TA PO; +PROPOFOL IV EMULSION 10 MG/ML 20 ML VIAL ONE; +PRVC/10 PO; -RANI150T85 PO; -ZINC PO; +ZINC1TAB PO
--- NOTE | 2018-03-18 11:09 | Discharge Instructions ---
Discharge Instructions Date of Service March 18, 2018. Admission Reason for Admission: Stones Discharge Discharge Diagnosis / Problem: R renal stone with indwelling stent s/p ESWL Discharge Goals Goal(s): Decrease discomfort, Improve disease control, Therapeutic intervention Activity Recommendations Activity Limitations: as noted below Lifting Limitations: no more than 25 pounds, gradually increase as tolerated Exercise/Sports Limitations: rest today, gradually increase as tolerated May Resume Sexual Activity: when tolerated Shower/Bathe: no limitations . Instructions / Follow-Up Instructions / Follow-Up Follow-up in office with KUB Xray before visit as planned. Current Hospital Diet Patient's current hospital diet: Discharge Diet Recommended Diet: Regular Diet (good fluid intake) Procedures Procedures Performed: Right renal extracorporeal shockwave lithotripsy Pending Studies Studies pending at discharge: yes List of pending studies: KUB Xray on follow-up in office Medical Emergencies . Who to Call and When: Medical Emergencies: If at any time you feel your situation is an emergency, please call 911 immediately. . Non-Emergent Contact Non-Emergency issues call your: Urologist Call Non-Emergent contact if: you have a fever, temperature is above 101, your pain is not controlled, your pain is worsening, your pain is unusual for you, your pain is concerning you, you have any medication questions . . "Provider Documentation" section prepared by Kraig Espinal. . [place] Drug Monitoring Program Search Results: patient reviewed within database, see additional documentation (no recent Rx in 2018 - provided with Rx for postop analgesia)
--- NOTE | 2018-03-18 11:39 | [facility] Post Operative Brief Note ---
Immediate Operative Summary Operative Date March 18, 2018. Pre-Operative Diagnosis Right Renal Kidney Stone Post-Operative Diagnosis Same as pre-op Procedure(s) Performed Right Extracorporeal Shock Wave Lithotripsy-Renal Surgeon Fence Installer Surgeon(s) None Estimated Blood Loss Zero Findings Consistent with Post-Op Diagnosis Specimens None Drains None Anesthesia Type General Complication(s) none Disposition Accompanied Pt To Recover: no Disposition: Recovery Room / PACU
--- NOTE | 2018-03-18 11:59 | OPERATIVE REPORT ---
DATE OF OPERATION: 03/18/2018 PREOPERATIVE DIAGNOSIS: Right renal stone with an indwelling stent. POSTOPERATIVE DIAGNOSIS: Right renal stone with an indwelling stent. PROCEDURE: Right renal extracorporeal shock wave lithotripsy. SURGEON: Dr. Kraig Espinal ASSISTANTS: None. ANESTHESIA: General anesthesia with laryngeal mask. COMPLICATIONS: None. FINDINGS: Excellent stone fragmentation on fluoroscopy. DETAILS OF PROCEDURE: The patient was brought to the litho suite. He was correctly identified and the stone was visualized on his most recent x-rays. After the correct time out was performed the patient was positioned over the therapy head. An adequate level of anesthesia was administered. The extracorporeal shockwave lithotripsy treatment was then commenced. Please see the [facility] Management sheet for complete treatment summary. After completion of the procedure, the patient was taken to the recovery room in stable condition. I attest to the content of the Intraoperative Record and any orders documented therein. Any exception s are noted below.
--- NOTE | 2018-03-18 12:22 | Anesthesia Progress Nt - [facility] ---
Anesthesia Post Op Note Date & Time March 18, 2018 at 12:21 Vital Signs Pain Intensity: 0 Vital Signs Past 12 Hours Date Time Temp Pulse Resp B/P (MAP) Pulse Ox O2 Delivery O2 Flow Rate FiO2 03/18/18 12:15 36.8 53 22 126/80 (95) 95 Room Air 03/18/18 12:11 57 121/77 96 03/18/18 12:11 57 03/18/18 12:06 67 16 03/18/18 12:06 67 16 90 03/18/18 12:05 36.4 94 Room Air 03/18/18 12:05 130/83 03/18/18 12:01 72 19 92 03/18/18 12:01 72 19 03/18/18 12:00 133/89 03/18/18 11:59 77 87 03/18/18 11:59 77 03/18/18 11:55 125/74 03/18/18 11:54 57 15 03/18/18 11:54 58 15 98 03/18/18 11:50 109/68 03/18/18 11:49 63 15 03/18/18 11:49 61 15 98 03/18/18 11:48 58 15 99 03/18/18 11:48 56 15 03/18/18 11:46 102/72 03/18/18 11:43 64 22 119/71 93 03/18/18 11:43 36.5 62 16 119/71 96 Room Air 03/18/18 11:43 64 22 03/18/18 09:57 36.4 56 20 127/86 (100) 94 Room Air Notes Mental Status: alert / awake / arousable, participated in evaluation Pt Amnestic to Procedure: Yes Nausea / Vomiting: adequately controlled Pain: adequately controlled Airway Patency, RR, SpO2: stable & adequate BP & HR: stable & adequate Hydration State: stable & adequate Anesthetic Complications: no major complications apparent
[2018-03-18 12:33] VITALS: BP 135/83; PULSE 57; O2SAT 97
== END | disposition home or self-care (01) ==
LOC: X.SURG 08:54
PROVIDERS: ATTEND Urology
DX: N20.0 Calculus of kidney (principal); I10 Essential (primary) hypertension; E78.5 Hyperlipidemia, unspecified; H49.10 Fourth [trochlear] nerve palsy, unspecified eye; Z87.891 Personal history of nicotine dependence; Z86.73 Personal history of transient ischemic attack (TIA), and cerebral infarction without residual deficits; Z79.82 Long term (current) use of aspirin; Z85.46 Personal history of malignant neoplasm of prostate

== ENCOUNTER → 2018-03-18 | Outpatient (CLI) | payer OTHER ==
[~2018-03-18] MED LIST changes: -ATROPINE SULFATE 0.1 MG/ML 5ML SYR IV PRN; -CIPROFLOXACIN 400MG / D5W IV SCH; -DEXAMETHASONE SOD INJ 4 MG/ML VIAL ONE; -EpHEDrine SULFATE INJ 50 MG/ML AMP IV PRN; -EpHEDrine SULFATE INJ 50 MG/ML AMP ONE; -FENTANYL CITRATE INJ 50 MCG/1 ML 2 ML VIAL IV PRN; -FENTANYL CITRATE INJ 50 MCG/1 ML 2 ML VIAL ONE; -LACTATED RINGER'S 1000ML 1,000 ML IV SCH; -LIDOCAINE HCL 2% 2 ML VIAL (20MG/ML) ONE; -MIDAZOLAM HCL 1 MG/ML 2ML VIAL ONE; -ONDANSETRON INJ 2 MG/ML 2 ML VIAL ONE; -OXYCODONE/ACETAMINOPHEN 5-325 TAB PO PRN; -PROPOFOL IV EMULSION 10 MG/ML 20 ML VIAL ONE
--- NOTE | 2018-03-18 09:05 | DIAGNOSTIC IMAGING REPORT ---
KUB CLINICAL HISTORY: N20.0 Nephrolithiasis nephrocalcinosis COMPARISON STUDY: 03/08/2018 FINDINGS: Right ureteral stent in good position. The proximal right ureteral calculus appears to have been displaced in a retrograde fashion is now located in the lower pole of the right kidney. Left-sided nephrocalcinosis is unchanged. Several pelvic vascular calcifications are unaltered. IMPRESSION: Interval placement of a right ureteral stent with the proximal right ureteral calculus previously described now located at the lower pole the right kidney. Unchanging left nephrocalcinosis. The above report was generated using voice recognition software. It may contain grammatical, syntax or spelling errors. Electronically signed by: Dustin Rodriguez M.D. 03/18/2018 9:03 AM Dictated Date/Time: 03/18/2018 9:01 AM
== END | disposition home or self-care (01) ==
LOC: C.RAD1850 08:43
PROVIDERS: ATTEND Urology
DX: N20.0 Calculus of kidney (principal)

== ENCOUNTER → 2018-03-28 | Outpatient (CLI) | payer OTHER | END | disposition home or self-care (01) | LOC: C.LABSPEC 17:17 | PROVIDERS: ATTEND Urology | DX: N20.0 Calculus of kidney (principal) ==

== ENCOUNTER → 2018-03-28 | Outpatient (CLI) | payer OTHER ==
--- NOTE | 2018-03-28 09:29 | DIAGNOSTIC IMAGING REPORT ---
KUB CLINICAL HISTORY: 62 years-old Male presenting with N20.0 [id number]. TECHNIQUE: Single supine view of the abdomen was obtained. COMPARISON: 03/18/[address] from 03/07/2018. FINDINGS: Cholelithiasis. Nonobstructive bowel gas pattern. No gross pneumoperitoneum. Endovascular coils project over the epigastrium. The right ureteral stent remains in place. Redemonstration of a calculus at the lower pole of the right kidney as well as a calculus at the interpolar to upper pole of the left kidney. Stable distribution of pelvic phleboliths. Surgical clips project over the pelvis likely indicating prior prostatectomy. Posterior lumbar fusion of L4-S1 with interbody spacer and laminectomy defects. Lung bases clear. IMPRESSION: 1. Right ureteral stent remains in place with stable bilateral nephrolithiasis. No ureteral calculi. Electronically signed by: Darshan Stein M.D. 03/28/2018 9:28 AM Dictated Date/Time: 03/28/2018 9:25 AM
== END | disposition home or self-care (01) ==
LOC: C.RAD1850 09:07
PROVIDERS: ATTEND Urology
DX: N20.0 Calculus of kidney (principal); Z96.0 Presence of urogenital implants

== ENCOUNTER 2024-09-28 07:36 | Inpatient (IN) ==
[2024-09-28] MEDS: ASPIRIN CHEW 324 MG PO STA (07:55)
[2024-09-28] MEDS: MoRPHine SULFATE 4 MG/ML 1 ML CARP\\VIAL IV STA (08:03)
[2024-09-28] MEDS: MoRPHine SULFATE 4 MG/ML 1 ML CARP\\VIAL ONE (08:10)
[2024-09-28] MEDS: TICAGRELOR 90 MG TAB ONE (08:11)
[2024-09-28] MEDS: niCARdipine 2,000 MCG/20 ML SYR ONE (08:27)
[2024-09-28] MEDS: NITROGLYCERIN/D5W 100MCG/ML 20ML SYR ONE (08:27)
[2024-09-28 08:29] LABS: Basophils # (auto) 0.06 K/uL (0.00-0.20); Basophils % (auto) 0.8 %; Eosinophils # (auto) 0.28 K/uL (0.00-0.50); Eosinophils % (auto) 3.7 %; Hemoglobin 14.2 g/dl (14.0-18.0); Immature Granulocytes # (auto) 0.02 K/uL (0.01-0.20); Immature Granulocytes % (auto) 0.3 %; Lymphocytes # (auto) 0.93 K/uL (1.20-3.40); Lymphocytes % (auto) 12.3 %; Mean Corpuscular Hemoglobin 32.4 pg (25.0-34.0); Mean Corpuscular Hgb Conc 33.8 g/dL (32.0-36.0); Mean Corpuscular Volume 95.9 fL (80.0-100.0); Mean Platelet Volume 11.9 fL (9.4-12.4); Monocytes # (auto) 0.48 K/uL (0.11-0.59); Monocytes % (auto) 6.3 %; Neutrophils # (auto) 5.82 K/uL (1.40-6.50); Neutrophils % (auto) 76.6 %; Platelet Count 198 K/uL (130-400); RDW Coefficient of Variation 13.2 % (11.5-14.5); RDW Standard Deviation 47.2 fL (36.4-46.3); Red Blood Count 4.38 M/uL (4.70-6.10); White Blood Count 7.59 K/ul (4.8-10.8)
--- NOTE | 2024-09-28 08:33 | XRay Report ---
XR chest 1V portable CLINICAL HISTORY: Chest pain, nonspecific COMPARISON STUDY: Chest CT August 30, 2024. FINDINGS: Lung volumes are normal. Lungs are clear. There is no pneumothorax or pleural effusion. Car diac size is normal. Mediastinal contours are normal. There is no evidence for pulmonary edema. Endov ascular coils within the left lower lobe are again noted. IMPRESSION: No acute cardiopulmonary findings. No change in appearance of the chest. ACT 112: Negative or not required by law. Electronically signed by: Kody Castillo M.D. 09/28/2024 8:30 AM
[2024-09-28 08:43] LABS: Albumin Globulin Ratio 1.1 (0.9-2); Albumin Level 3.9 gm/dl (3.4-5.0); Bilirubin,Total 0.6 mg/dl (0.2-1.0); Creatinine Clr Calc Pharmacy 85.9 ml/min; Globulin 3.4 gm/dl (2.5-4.0); Potassium 3.4 mmol/L (3.5-5.1); Total Protein 7.3 gm/dl (6.0-8.3)
[2024-09-28 08:54] LABS: Troponin I High Sensitivity 271.8 pg/ml (0-20)
[2024-09-28 09:00] LABS: Partial Thromboplastin Ratio 0.9; Partial Thromboplastin Time 25 Seconds (21-31); Prothrombin Time 10.6 Seconds (9.0-12.0)
--- NOTE | 2024-09-28 09:17 | Emergency Department Note ---
Impression & Plan ST elevation (STEMI) myocardial infarction ED Provider Note Diagnosis: Inf. STEMI Disposition: Admission CHIEF COMPLAINT: Chest pain HPI: Patient is a 78-year-old male presenting with chest pain. Patient's symptoms reportedly started approximately 5 PM yesterday. Patient's pain is substernal and radiates to the arm and jaw. Patient states associated with mild shortness of breath. Patient denies any previous cardiac history. PAST MEDICAL HISTORY: See Below PAST SURGICAL HISTORY: See Below SOCIAL HISTORY: See Below HOME MEDICATIONS: See Below ALLERGIES: See Below VITALS: See Below PHYSICAL EXAMINATION: GENERAL: Well appearing, well nourished, NAD, non-toxic. EYE EXAM: Normal conjunctiva. OROPHARYNX: Moist mucus membranes. Grossly normal dentition. NECK: Supple, LUNGS: Clear to auscultation. Normal chest wall mechanics. HEART: NSR ABDOMEN: Abdomen soft, non-tender, normo-active bowel sounds, no masses, no rebound or guarding BACK: No CVA TTP. SKIN: No rashes and no bruising. UPPER EXTREMITIES: Upper extremities are grossly normal LOWER EXTREMITIES: Grossly normal, no edema. NEURO EXAM: A&O x3,, normal speech, moves all 4 extremities PSYCH: Cooperative MEDICAL DECISION MAKING: History obtained from: Patient, ER Course: Patient 68-year-old male presenting with chest pain that started 5 PM last evening. Patient states pain is constant dull in nature center of his chest that radiates to the arm and jaw. Patient associated shortness of breath. Patient's pain currently 6 out of 10. Patient having elevations in inferior leads on EKG. Patient's case discussed with on-call microbiology quality control technician Dr. Contreras who recommends sending patient up to cardiac Sample Room Supervisor. [facility] Labs (independently interpreted) are significant for: Pending at time of patient transfer to Sample Room Supervisor Imaging results (independently interpreted): Chest x-ray clear EKG interpretation (independently interpreted): Sinus rhythm ST segment elevation in the inferior leads Medications given: Aspirin Consultants: Dr. Contreras, in the Sample Room Supervisor currently with staff and recommends that patient be brought up for cardiac catheterization Triage Nursing notes reviewed and agree them. Vital Signs: reviewed and remarkable for: no significant abnormalities Past Med/Surg History Problem List (Updated 09/28/24 @ 12:03 by Jeremy Joel DO) ST elevation (STEMI) myocardial infarction (Acute) Sleep apnea CPAP Hypokalemia STEMI (ST elevation myocardial infarction) Cigarette nicotine dependence Primary osteoarthritis of right hip Bilateral tinnitus Sensorineural hearing loss (SNHL) of both ears Encounter for pre-operative examination Hydronephrosis of right kidney Lumbar stenosis with neurogenic claudication Right ureteral calculus HHT (hereditary hemorrhagic telangiectasia) Right knee pain (Chronic) Edema of right lower extremity Pain of left sacroiliac joint Nephrolithiasis Urticaria (Acute) Hyperlipidemia (Acute) History of prostate cancer 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) Vitamin D deficiency Primary hypertension Chronic low back pain (Chronic) Postlaminectomy syndrome of lumbosacral region AVM (arteriovenous malformation) LLL Lung AVM Coiling 05/2009 [facility] [place] Medical History (Updated 09/28/24 @ 12:03 by Jeremy Joel DO) Colon cancer screening Osteoarthritis GERD (gastroesophageal reflux disease) History of prostate cancer treated surgically [place] (hard of hearing) Tinnitus History of stroke 2008 -- memory issues "I have trouble with names" High cholesterol Surgical History History of surgery LLL Lung AVM Coiling 05/2009 [facility] [place] History of right knee joint replacement History of lumbar fusion History of prostate biopsy History of colonoscopy History of prostatectomy History of bilateral carpal tunnel release H/O prostatectomy S/P lumbar fusion Family History Father AVM (arteriovenous malformation) Stroke Brother Leukemia Stroke Diabetes Uncle Myocardial infarction Prostate cancer Denies family history of Ovarian cancer Breast cancer Colorectal cancer Social History Smoking Status: Current every day smoker Tobacco Type: Cigarettes Cigarettes Per Day: 5-6; Smoking End Date: 8; Second Hand Exposure: No; Do You Dip or Chew Tobacco: No; Tobacco Cessation Education Requested by Patient: No Hx Alcohol Use: No Hx Substance Use: No Preferred Language: Pakistani Communication Ability: Effective Visual Impairment: No Limitations Hearing Ability: Normal Scientific Technical Writer Required: No Beliefs That Will Affect Care: None marital status: Current Living Situation: Spouse current occupational status: retired current occupation: Maintenance Feels Safe at Home: Yes Safety Concerns: Feels Safe At This Time Childhood Exposure to Second-Hand Smoke: Yes Dental Care, Regularly: Yes Physical Activity Frequency: Does not Exercise Physical Activity Frequency Comment: Active around the house Seatbelt Use: always Sunscreen Use: Yes Assistive Devices: Hearing Aid - Bilateral Assistive Devices Comment: not here Allergies Allergies Allergy/AdvReac Type Severity Reaction Status Date / Time mushroom Allergy Unknown ANAPHYLAXIS Verified 07/18/24 10:06 No Known Drug Allergies Allergy Unknown NKDA Verified 07/18/24 10:06 Home Meds Home Medications Medication Instructions Recorded Confirmed aspirin 81 mg tablet,delayed 81 mg PO QAM 11/23/19 07/18/24 release (Adult Aspirin Regimen) cholecalciferol (vitamin D3) 50 2,000 units PO BID 11/23/19 07/18/24 mcg (2,000 unit) tablet ferrous sulfate 325 mg (65 mg 325 mg PO QPM 11/23/19 07/18/24 iron) tablet (Feosol) multivitamin 1 tab PO QAM 11/23/19 07/18/24 vitamin B complex (B 1 tab PO QAM 11/23/19 07/18/24 Complex-Vitamin B12 tablet) turmeric 100 mg-therese 150 1 cap PO QPM 12/01/22 07/18/24 mg-olive 50 mg-oreg 150 mg-capryl capsule zinc gluconate 50 mg tablet 50 mg PO QPM 12/01/22 07/18/24 Previous Rx's Medication Instructions Recorded triamcinolone acetonide 0.05 % 1 applic topical BID #430 grams 12/01/22 topical ointment nicotine (polacrilex) 4 mg buccal 4 mg buccal Q4H PRN nicotine 12/02/22 lozenge cravings #108 ea gabapentin 300 mg capsule 300 mg PO BID #180 caps 02/29/24 hydrochlorothiazide 12.5 mg tablet 12.5 mg PO QAM #90 tabs 02/29/24 rosuvastatin 5 mg tablet (Crestor) 5 mg PO QPM #90 tabs 02/29/24 amoxicillin 500 mg capsule 1,000 mg (2 x 500 mg) PO .COMPLEX 04/04/24 PRN ud #4 caps olmesartan 40 mg tablet 40 mg PO DAILY #90 tabs 05/30/24 sulindac 200 mg tablet 200 mg PO BID #180 tabs 06/21/24 amlodipine 5 mg tablet 5 mg PO DAILY #90 tabs 06/28/24 Results & Data (ED) Vital Signs Vital Signs - 24 hr 09/28/24 07:44 09/28/24 07:53 09/28/24 07:56 Temperature 36.5 C Temperature Source Oral Pulse Rate 70 62 65 Pulse Rhythm Regular Pulse Strength Normal Respiratory Rate 18 18 Respiratory Effort / Characteristics Non-Labored Spontaneous Respiratory Depth Normal Respiratory Pattern Regular Blood Pressure 147/95 H 152/100 H Blood Pressure Mean 112 118 Blood Pressure Position Sitting Pulse Oximetry 93 95 Oxygen Delivery Method Room Air Room Air Oxygen Flow Rate Sepsis Recent Fever Within 48 Hours No Sepsis New/Unexplained Change in Mental Status No Sepsis Action Taken by Nursing No Action Required Oxygen Flow Rate - Titration Pulse Oximetry Post Tiitration 09/28/24 08:00 09/28/24 08:01 Temperature Temperature Source Pulse Rate 66 Pulse Rhythm Pulse Strength Respiratory Rate 18 Respiratory Effort / Characteristics Respiratory Depth Respiratory Pattern Blood Pressure 160/103 H Blood Pressure Mean 116 Blood Pressure Position Pulse Oximetry 97 94 Oxygen Delivery Method Nasal Cannula Nasal Cannula Oxygen Flow Rate 2 Sepsis Recent Fever Within 48 Hours Sepsis New/Unexplained Change in Mental Status Sepsis Action Taken by Nursing Oxygen Flow Rate - Titration 2 Pulse Oximetry Post Tiitration 97 Laboratory Data 09/28/24 07:50 09/28/24 07:50 Lab Results 09/28/24 09/28/24 09/28/24 Range/Units 07:50 07:56 08:55 WBC 7.59 (4.8-10.8) K/ul RBC 4.38 L (4.70-6.10) M/uL Hgb 14.2 (14.0-18.0) g/dl POC Hgb 14.3 (14.0-18.0) g/dl Hct 42.0 (42.0-52.0) % POC Hct 42 (42-52) % MCV 95.9 (80.0-100.0) fL MCH 32.4 (25.0-34.0) pg MCHC 33.8 (32.0-36.0) g/dL RDW Std Deviation 47.2 H (36.4-46.3) fL RDW Coeff of Gaurav 13.2 (11.5-14.5) % Plt Count 198 (130-400) K/uL MPV 11.9 (9.4-12.4) fL Immature Gran % (Auto) 0.3 % Neut % (Auto) 76.6 % Lymph % (Auto) 12.3 % [place] % (Auto) 6.3 % Eos % (Auto) 3.7 % Baso % (Auto) 0.8 % Neut # (Auto) 5.82 (1.40-6.50) K/uL Lymph # (Auto) 0.93 L (1.20-3.40) K/uL [place] # (Auto) 0.48 (0.11-0.59) K/uL Eos # (Auto) 0.28 (0.00-0.50) K/uL Baso # (Auto) 0.06 (0.00-0.20) K/uL Immature Gran # (Auto) 0.02 (0.01-0.20) K/uL PT 10.6 (9.0-12.0) Seconds INR 1.0 (0.9-1.1) APTT 25 (21-31) Seconds PTT Ratio 0.9 Activ Coag Time Kaolin 263 H (94-140) SECONDS POC Sodium 144 (135-144) mmol/L Sodium 143 (136-145) mmol/L POC Potassium 3.3 (3.3-5.0) mmol/L Potassium 3.4 L (3.5-5.1) mmol/L POC Chloride 103 (101-112) mmol/L Chloride 109 H (98-107) mmol/L Carbon Dioxide 28 (21-32) mmol/L POC Total CO2 23 L (24-31) mmol/L Anion Gap 6 (3-11) POC Anion Gap 22.0 (16-25) mmol/L POC BUN 15 (7-18) mg/dl BUN 16 (6-23) mg/dl Creatinine 1.00 (0.6-1.4) mg/dl POC Creatinine 1.1 (0.6-1.3) mg/dl Est Cr Clr Drug Dosing 85.9 ml/min eGFR 81.47 BUN/Creatinine Ratio 16.0 (10-20) Glucose 142 H (70-99(Fasting)) mg/dl POC Glucose (other) 144 H (70-99) mg/dl Calcium 9.0 (8.6-10.3) mg/dl POC Ioniz Calcium Nneka 1.16 (1.12-1.32) mmol/l Total Bilirubin 0.6 (0.2-1.0) mg/dl AST 22 (13-39) U/L ALT 16 (7-52) U/L Alkaline Phosphatase 60 (34-104) U/L Troponin I High Sens 271.8 H* (0-20) pg/ml Total Protein 7.3 (6.0-8.3) gm/dl Albumin 3.9 (3.4-5.0) gm/dl Globulin 3.4 (2.5-4.0) gm/dl Albumin/Globulin Ratio 1.1 (0.9-2) Lipase 60 (11-82) U/L Administered Medications Heparin Sodium/Dextrose (Heparin Sodium/Dextrose) 25,000 units in 500 mls @ 20 mls/hr IV .Q24H [facility]; Protocol Stop: 10/28/24 10:44 Last Admin: 09/28/24 11:25 Dose: 1,000 units/hr, 20 mls/hr Documented By: LIANNA Co-signed By: NEFTALY Miscellaneous (Icu Protocol For Hyperglycemia) 1 each N/A ACHS [facility] Stop: 09/30/24 11:29 Last Admin: 09/28/24 11:48 Dose: Not Given Documented By: LIANNA Morphine Sulfate (Morphine Sulfate 2 Mg/Ml Carp) 2 mg IV Q3H PRN PRN Reason: Pain Stop: 10/12/24 11:09 Last Admin: 09/28/24 11:26 Dose: 2 mg Documented By: LIANNA Rosuvastatin Calcium (Rosuvastatin Calcium 20 Mg Tab) 20 mg PO QAM [facility] Stop: 10/28/24 10:29 Last Admin: 09/28/24 11:48 Dose: 20 mg Documented By: LIANNA Discontinued Medications Aspirin (Aspirin Chew 324 Mg) 324 mg PO NOW STA Stop: 09/28/24 07:54 Last Admin: 09/28/24 07:55 Dose: 324 mg Documented By: IVORYN Atropine Sulfate (Atropine Sulfate 0.1 Mg/Ml 10ml Syr) Confirm Administered Dose 1 mg IV .STK-MED ONE Stop: 09/28/24 08:37 Last Admin: 09/28/24 11:25 Dose: Not Given Documented By: LIANNA Fentanyl Citrate (Fentanyl Citrate Pf 100 Mcg/2 Ml Vial) Confirm Administered Dose 100 mcg .ROUTE .STK-MED ONE Stop: 09/28/24 08:02 Last Increment: 09/28/24 09:51 Dose: 25 mcg Documented By: THOMAS Heparin Sodium (Porcine) (Heparin (Porcine) 1000 Unit/Ml 10 Ml (Sample Room Supervisor Use Only)) Confirm Administered Dose 10,000 units .ROUTE .STK-MED ONE Stop: 09/28/24 08:02 Last Admin: 09/28/24 09:51 Dose: 8,000 units Documented By: THOMAS Heparin Sodium/Sodium Chloride (Heparin In Nss Infusion 1000 Unit/500 Ml (2 U/Ml) Bag) Confirm Administered Dose 3,000 units IV .STK-MED ONE Stop: 09/28/24 08:02 Last Admin: 09/28/24 08:26 Dose: 3,000 units Documented By: NAEEM Ioversol (Optiray 350) Confirm Administered Dose 1 ml .ROUTE .STK-MED ONE Stop: 09/28/24 08:03 Last Admin: 09/28/24 09:51 Dose: 140 ml Documented By: NAEEM Midazolam HCl (Midazolam Hcl 1 Mg/Ml 2ml Vial) Confirm Administered Dose 2 mg .ROUTE .STK-MED ONE Stop: 09/28/24 08:02 Last Increment: 09/28/24 09:51 Dose: 1 mg Documented By: THOMAS Morphine Sulfate (Morphine Sulfate 4 Mg/Ml 1 Ml Carp\\Vial) 4 mg IV NOW STA Stop: 09/28/24 08:02 Last Admin: 09/28/24 08:03 Dose: 4 mg Documented By: JESSICA Morphine Sulfate (Morphine Sulfate 4 Mg/Ml 1 Ml Carp\\Vial) Confirm Administered Dose 4 mg .ROUTE .STK-MED ONE Stop: 09/28/24 08:04 Last Admin: 09/28/24 08:10 Dose: Not Given Documented By: JESSICA Nicardipine HCl (Nicardipine 2,000 Mcg/20 Ml Syr) Confirm Administered Dose 2,000 mcg .ROUTE .STK-MED ONE Stop: 09/28/24 08:02 Last Admin: 09/28/24 08:27 Dose: 2,000 mcg Documented By: NAEEM Nitroglycerin/Dextrose (Nitroglycerin/D5w 100mcg/Ml 20ml Syr) Confirm Administered Dose 2,000 mcg .ROUTE .STK-MED ONE Stop: 09/28/24 08:03 Last Admin: 09/28/24 08:27 Dose: 2,000 mcg Documented By: NAEEM Potassium Chloride (Potassium Chloride Crtab 20 Meq Tabcr) 40 meq PO NOW STA Stop: 09/28/24 11:16 Last Admin: 09/28/24 11:48 Dose: 40 meq Documented By: LIANNA Ticagrelor (Ticagrelor 90 Mg Tab) Confirm Administered Dose 180 mg .ROUTE .STK- MED ONE Stop: 09/28/24 08:09 Last Admin: 09/28/24 08:11 Dose: 180 mg Documented By: MMN Imaging Data Radiologist's Impression: Chest X-Ray 09/28/24 07:53 XR chest 1V portable CLINICAL HISTORY: Chest pain, nonspecific COMPARISON STUDY: Chest CT August 30, 2024. FINDINGS: Lung volumes are normal. Lungs are clear. There is no pneumothorax or pleural effusion. Cardiac size is normal. Mediastinal contours are normal. There is no evidence for pulmonary edema. Endovascular coils within the left lower lobe are again noted. IMPRESSION: No acute cardiopulmonary findings. No change in appearance of the chest. ACT 112: Negative or not required by law. Electronically signed by: Kody Castillo M.D. 09/28/2024 8:30 AM Discharge Plan Visit Data Chief Complaint: Chest Pain Stated Complaint: CHEST PAIN, L ARM AND BACK PAIN, SOB ED Provider: Jeremy Joel Discharge Problem: ST elevation (STEMI) myocardial infarction Patient Disposition: Admitted As Inpatient
[2024-09-28] MEDS: OPTIRAY 350 ONE (09:51)
[2024-09-28] MEDS: fentaNYL citrate PF 100 MCG/2 ML VIAL ONE (09:51)
[2024-09-28] MEDS: HEPARIN (PORCINE) 1000 UNIT/ML 10 ML (CATH LAB USE ONLY) ONE (09:51)
[2024-09-28] MEDS: MIDAZOLAM HCL 1 MG/ML 2ML VIAL ONE (09:51)
[2024-09-28 09:58] LABS: iSTAT Creatinine 1.1 mg/dl (0.6-1.3); iSTAT Hemoglobin 14.3 g/dl (14.0-18.0); iSTAT Ionized Calcium 1.16 mmol/l (1.12-1.32); iSTAT Potassium 3.3 mmol/L (3.3-5.0)
--- NOTE | 2024-09-28 10:12 | History & Physical Report ---
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 and evaluated in ICU laborer concrete paving: initial angioplasty of RCA vessel dissected, covered with single KADE -> short residual dissection in small marginal branch ARABELLA risk score 20 = low risk Smoking history, obesity, HLD - Heart healthy diet - on rosuvastatin 5 mg at home -> change to 20 mg daily - continue home baby ASA + addition of Brilinta 90 BID - Heparin overnight given dissection - Troponin q6hr x 4 - lipid panel and A1C with AM labs - cardiology and intensivists following Tobacco smokin-6 cigarettes/day, ~20 pkyr history - declines nicotine patch at this time (2) Hypokalemia: Plan: 3.4 on admission -> 40 Meq PO - trend daily BMP (3) Primary hypertension: Plan: History of poorly controlled hypertension as per recent PCP note Home meds: HCTZ 12.5, and 40, and recent addition of amlodipine 5 mg - with addition of BB, will adjust home regimen - Lopressor 25 mg TID, losartan 100 mg daily (4) Hyperlipidemia: Plan: TIA 06/2022 and now STEMI 09/2024 - continue daily baby ASA - Rosuvastatin 5 changed to 20mg - lipid panel with AM labs (5) AVM (arteriovenous malformation): Plan: 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 s/p LLL Lung AVM coiling 05/2009 - has routine echos and Chest CTs managed by PCP - most recent echo 2020 showed no change from 2008 (6) Sleep apnea: Plan: noncompliant on home CPAP Plan Chronic stable diagnoses: COPD - trelegy PRN at home chronic back pain and OA - hold Sulindac and Gabapentin, add Tylenol prn GERD - will add PPI given high stress environment and medication changes VTE ppx: Heparin drip Diet: heart healthy Code status: full Dispo: ICU Admission and Anticipated Discharge Date Admission Date: 09/28/24 History of Present Illness Chief Complaint: Chest Pain Primary Care Provider: Ailin Triplett MD Patient is a 68-year-old male with a past medical history of hypertension, hyperlipidemia, obesity, severe PAOLA, COPD, GERD, prostate cancer s/p prostatectomy, OA, AVM s/p coiling. he presents today due to chest pain, he was taken to [facility] and evaluated in the ICU. 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 He went through his night as per usual, he woke up this morning with 8/10 chest pain that he described as pressure, radiating down left arm, and through his back/between shoulder blades. He had associated dyspnea. After cardiac cath in which he had a stent to the R CA, he is feeling better. He states he just has 3/10 back pain. He stated he does have a family history of MIs, on his maternal side he had multiple uncles with MIs and stent placement. Patient denies headache, dizziness, lightheadedness, cough, abdominal pain, nausea, vomiting, edema, numbness, tingling. He does have a smoking history, 5 to 6 cigarettes/day for the past 15 to 20 years; He smoked for many years before that but had a multi year break. He denies past history of diabetes, or other cancers. He has not used his home CPAP in about a year. He did not take his home medications this morning. He wishes to be full code at this time. Allergies Allergy/AdvReac Type Severity Reaction Status Date / Time mushroom Allergy Unknown ANAPHYLAXIS Verified 07/18/24 10:06 No Known Drug Allergies Allergy Unknown NKDA Verified 07/18/24 10:06 Home Medications Medication Instructions Recorded Confirmed Type aspirin 81 mg tablet,delayed 81 mg PO QAM 11/23/19 07/18/24 History release (Adult Aspirin Regimen) cholecalciferol (vitamin D3) 50 2,000 units PO BID 11/23/19 07/18/24 History mcg (2,000 unit) tablet ferrous sulfate 325 mg (65 mg 325 mg PO QPM 11/23/19 07/18/24 History iron) tablet (Feosol) multivitamin 1 tab PO QAM 11/23/19 07/18/24 History vitamin B complex (B 1 tab PO QAM 11/23/19 07/18/24 History Complex-Vitamin B12 tablet) triamcinolone acetonide 0.05 % 1 applic topical BID #430 grams 12/01/22 07/18/24 Rx topical ointment turmeric 100 mg-therese 150 1 cap PO QPM 12/01/22 07/18/24 History mg-olive 50 mg-oreg 150 mg-capryl capsule zinc gluconate 50 mg tablet 50 mg PO QPM 12/01/22 07/18/24 History nicotine (polacrilex) 4 mg buccal 4 mg buccal Q4H PRN nicotine 12/02/22 07/18/24 Rx lozenge cravings #108 ea gabapentin 300 mg capsule 300 mg PO BID #180 caps 02/29/24 07/18/24 Rx hydrochlorothiazide 12.5 mg tablet 12.5 mg PO QAM #90 tabs 02/29/24 07/18/24 Rx rosuvastatin 5 mg tablet (Crestor) 5 mg PO QPM #90 tabs 02/29/24 07/18/24 Rx amoxicillin 500 mg capsule 1,000 mg (2 x 500 mg) PO .COMPLEX 04/04/24 07/18/24 Rx PRN ud #4 caps olmesartan 40 mg tablet 40 mg PO DAILY #90 tabs 05/30/24 07/18/24 Rx sulindac 200 mg tablet 200 mg PO BID #180 tabs 06/21/24 07/18/24 Rx amlodipine 5 mg tablet 5 mg PO DAILY #90 tabs 06/28/24 07/18/24 Rx Past Med/Surg History Problem List (Updated 09/28/24 @ 12:03 by Jeremy Joel DO) ST elevation (STEMI) myocardial infarction (Acute) Sleep apnea CPAP Hypokalemia STEMI (ST elevation myocardial infarction) Cigarette nicotine dependence Primary osteoarthritis of right hip Bilateral tinnitus Sensorineural hearing loss (SNHL) of both ears Encounter for pre-operative examination Hydronephrosis of right kidney Lumbar stenosis with neurogenic claudication Right ureteral calculus HHT (hereditary hemorrhagic telangiectasia) Right knee pain (Chronic) Edema of right lower extremity Pain of left sacroiliac joint Nephrolithiasis Urticaria (Acute) Hyperlipidemia (Acute) History of prostate cancer 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) Vitamin D deficiency Primary hypertension Chronic low back pain (Chronic) Postlaminectomy syndrome of lumbosacral region AVM (arteriovenous malformation) LLL Lung AVM Coiling 05/2009 [facility] [place] Medical History (Updated 09/28/24 @ 12:03 by Jeremy Joel DO) Colon cancer screening Osteoarthritis GERD (gastroesophageal reflux disease) History of prostate cancer treated surgically [place] (hard of hearing) Tinnitus History of stroke 2008 -- memory issues "I have trouble with names" High cholesterol Surgical History History of surgery LLL Lung AVM Coiling 05/2009 [facility] [place] History of right knee joint replacement History of lumbar fusion History of prostate biopsy History of colonoscopy History of prostatectomy History of bilateral carpal tunnel release H/O prostatectomy S/P lumbar fusion Family History Father AVM (arteriovenous malformation) Stroke Brother Leukemia Stroke Diabetes Uncle Myocardial infarction Prostate cancer Denies family history of Ovarian cancer Breast cancer Colorectal cancer Social History Smoking Status: Current every day smoker Tobacco Type: Cigarettes Cigarettes Per Day: 5-6; Smoking End Date: 8; Second Hand Exposure: No; Do You Dip or Chew Tobacco: No; Tobacco Cessation Education Requested by Patient: No Hx Alcohol Use: No Hx Substance Use: No Preferred Language: Bermudian Communication Ability: Effective Visual Impairment: No Limitations Hearing Ability: Normal Butcher Apprentice Required: No Beliefs That Will Affect Care: None marital status: Current Living Situation: Spouse current occupational status: retired current occupation: Maintenance Feels Safe at Home: Yes Safety Concerns: Feels Safe At This Time Childhood Exposure to Second-Hand Smoke: Yes Dental Care, Regularly: Yes Physical Activity Frequency: Does not Exercise Physical Activity Frequency Comment: Active around the house Seatbelt Use: always Sunscreen Use: Yes Assistive Devices: Hearing Aid - Bilateral Assistive Devices Comment: not here Review of Systems Review of Systems: See HPI Physical Exam Physical Exam: The patient is awake, alert and oriented 3, well developed and well nourished, normocephalic and atraumatic, in no acute distress. Non-toxic appearing. HEENT- EOMI, mucous membranes moist. Hearing grossly intact. Heart-normal S1 and S2. No murmurs, rubs or gallops. Lungs-clear bilaterally, no respiratory distress, no accessory muscle use. Abdomen-normal bowel sounds and soft. No ascites noted. Non-tender. Extremities- no clubbing, cyanosis. Mild BL LE edema. Right radial band intact, neurovascularly intact to RUE. No hematoma noted. Rheumatologic-normal range of motion. Psychiatric-normal affect. Results & Data Results & Data Vital Signs (Past 12 Hours) Vital Signs Temp Pulse Resp BP Pulse Ox O2 Del Method O2 Flow Rate 09/28/24 08:01 94 Nasal Cannula 09/28/24 08:00 66 18 160/103 H 97 Nasal Cannula 2 09/28/24 07:56 65 09/28/24 07:53 62 18 152/100 H 95 Room Air 09/28/24 07:44 36.5 C 70 18 147/95 H 93 Room Air Code Status & VTE Plan Code Status Full code VTE Prophylaxis Plan VTE Prophylaxis will be ordered: Yes Supervising Physician Co-Signing Physician Notes Patient seen and examined, chart reviewed, case discussed with Roselyn Mora PA-C and I agree with the assessment and plan as above except as otherwise noted Labs and images reviewed 68-year-old male who presented with chest pain and was taken emergently to [facility] as a STEMI, found to have a with a nondominant RCA occlusion. Patient did have limited dissection of the RCA during procedure for which overlapping stent was placed. At bedside visit patient has improved but not completely resolved pain now around 24/10. Reviewed with cardiology, continue heparin overnight. Continue DAPT. Continue metoprolol, olmesartan, rosuvastatin. Will be followed in the ICU overnight. Patient with no questions or concerns at bedside visit. Right wrist is with TR band in place, neurovascularly intact and without any evidence of hematoma. Agree with history and recommendations as documented above. PG Care Time/CCT Total # of Minutes Spent Total Time Spent with Patient: Total time spent is greater than 50% in coordination of care (as documented) at patient's floor/unit and/or counseling patient: Coding Level of Care Code 15287 INT INP/OBS CARE 3/75MIN Diagnoses STEMI (ST elevation myocardial infarction) I21.3 Hypokalemia E87.6 Primary hypertension I10 Hyperlipidemia E78.5 AVM (arteriovenous malformation) Q27.30 Sleep apnea G47.30
[2024-09-28] MEDS ORDERED: ONDANSETRON INJ 2 MG/ML 2 ML VIAL IV PRN (10:19)
[2024-09-28] MEDS ORDERED: NITROGLYCERIN SL 0.4 MG/TAB TAB SL PRN (10:19)
[2024-09-28] MEDS ORDERED: ACETAMINOPHEN 325 MG TAB PO PRN (10:19)
--- NOTE | 2024-09-28 10:31 | Pre Anesthesia Assessment ---
Date of Service September 28, 2024 Pre Sedation Assessment Vital Signs Temp Pulse Resp BP Pulse Ox O2 Del Method O2 Flow Rate 09/28/24 08:01 94 Nasal Cannula 09/28/24 08:00 66 18 160/103 H 97 Nasal Cannula 2 09/28/24 07:56 65 09/28/24 07:53 62 18 152/100 H 95 Room Air 09/28/24 07:44 97.7 F 70 18 147/95 H 93 Room Air Cardiovascular + regular rate Respiratory + respiratory effort normal Pre-Sedation Airway Assessment Smoking Status: Current every day smoker Hx Sleep Apnea: No Hx Difficult Intubation: No Short, Thick Neck: No Thyromental Distance: < 3.5 Finger Breadths Oral Cavity: + Dental Abnormalities Mallampati Class: III ASA: ASA4 Procedure Planning Contraindications for Sedation: none Current Medications Reviewed: Yes Notes The planned sedation has been discussed with the patient. Informed Consent was obtained. I have identified the patient, determined the appropriateness of sedation and have assessed the patient immediately prior to the procedure. All medicine(s) and interventions are by my order.
--- NOTE | 2024-09-28 10:33 | Post Anesthesia Assessment ---
Date of Service September 28, 2024 Post Sedation Assessment Vital Signs Temp Pulse Resp BP Pulse Ox O2 Del Method O2 Flow Rate 09/28/24 08:01 94 Nasal Cannula 09/28/24 08:00 66 18 160/103 H 97 Nasal Cannula 2 09/28/24 07:56 65 09/28/24 07:53 62 18 152/100 H 95 Room Air 09/28/24 07:44 97.7 F 70 18 147/95 H 93 Room Air Recovery Score Activity: Moves 4 extremities Respiration: Deep Breath/Cough Circulation: +/-20% PreAnes Value Consciousness: Fully Awake Oxygen Saturation: O2 needed for >90% Discharge Sedation Level of Care: Fast Track Phase II Post Sedation Plan On clinical assessment, the patient appears to have tolerated the sedation without complications. Patient is recovering as anticipated. Patient will continue to be monitored by nursing and may be discharged when sedation discharge criteria are met per below protocol. Upon Completions of procedure up to 15 minutes continue every 5 minute vital signs and the P.A.R. score; then discharge to a Phase I or Fast Track to Phase II per the following guidelines: * Discharge Patient to appropriate Phase II area if PAR is 8 or greater or return to pre- procedure baseline. The post - procedure orders will be as directed. * If PAR score is less than 8 or not return to pre-procedure baseline then patient will follow Phase I monitoring till PAR is reached for Phase II. The Phase I may be done in procedure room or may call to secure a Phase I area. * If naloxone or flumazenil are used for reversal, hold in Phase I for continued monitoring from when last reversal dose was given for a minimum of 60 minutes or longer pending the nurse and/or physician discretion of patient condition before discharge to Phase II. Please call the Sedation Physician to re-evaluate and complete post-note for discharge to Phase II area. Do NOT discharge from procedure sedation or Phase 1 until post- sedation evaluation note is complete by procedure /sedation MD Sedation Discharge Instructions to be given to the patient at discharge to home.
--- NOTE | 2024-09-28 10:42 | Cardiac Catheterization ---
[facility] Data: Interventional Radiology Tech Cardiac Status Clinical evaluation leading to the procedure CAD Presenation: STEMI Anginal Classification: CCS IV Diagnostic Physicians Name: Mega Contreras MD Closure Device Recommendations: PCI without planned CABG Cardiac Cath Procedure Full Procedure Date September 28, 2024 Pre-Procedure Diagnosis Pre-Procedure Diagnosis: STEMI AUC Score AUC Score: 9 Post-Procedure Diagnosis Post-Procedure Diagnosis: Successful PCI and Normal Intracardiac Pressures Procedure(s) Performed Procedure(s) Performed: Coronary Angiography, Left Heart Cath and Drug Eluting Stent Environmental Field Services Technician Mega Contreras MD Adhesive Bandage Machine Operator(s) Leander Estimated Blood Loss Estimated Blood Loss: 35 Medication(s) Medication(s): Fentanyl, Heparin, Lidocaine 1%, Nicardipine, Nitroglycerin and Versed Medication(s): Ticagrelor Summary of Findings Indication: ACS, borderline inferior ST elevations on ECG. Access: 6 Fr right radial artery Catheters: [place], diagnostic JL 3.5, JR4 guide, pigtail Findings: LM -normal caliber, short, no significant disease LAD -medium caliber, proximal luminal irregularities, gives off large D2 without significant disease. Mid to distal vessel small without disease and tapers to apex. Circumflex -dominant, large caliber, 40% mid segment stenosis after takeoff of OM 2. Distal vessel with diffuse 20 to 30% disease. Medium OM 2, left PLBs and left PDA without significant disease. RCA -small, nondominant RCA, 100% acute occlusion LVEDP -8 -- PCI -- Antithrombotic therapy: Heparin, ticagrelor Procedure: RCA cannulated with JR4 guide Eyelet Punch Operator 50 wire passed across lesion into distal small RV branch Proximal RCA lesion predilated with 2.5 compliant balloon Post balloon inflation flow reestablished but noted to have dissection which appeared to extend into larger acute marginal Attempt made to place second wire into acute marginal (BMW, whisper) but repeatedly seemed to end up and dissection plane. Eventually able to pass wire easily into what looked to be distal acute marginal. 1.5 OTW balloon passed over wire into marginal. Injection through OTW balloon showed balloon to be in dissection plane. Balloon removed Dilated proximal RCA lesion stented with 2.25 x 22 mm [place]er drug-eluting stent Stent post-dilated with 2.5 noncompliant balloon IC vasodilators administered for spasm Post procedure ARABELLA 3 flow, stent well expanded, ST elevation resolved and patient largely chest pain-free. Evidence of short residual dissection at distal aspect of stent into acute marginal. As nonflow limiting, asymptomatic and small vessel, decision to forego further attempts at stenting into marginal. Arterial Closure: TR band Summary: 1. Inferior STEMI/100% proximal occlusion of small nondominant RCA 2. Mild to moderate non-culprit coronary artery disease -40% mid, 25% distal circumflex 3. Normal intracardiac filling pressure 4. Successful PCI of proximal RCA with single drug-eluting stent (2.25 x 22 mm [place]; postdilated with 2.5 NC). -Short residual nonflow limiting dissection at distal aspect of stent into acute marginal. Recommendations: Admit to ICU for continued monitoring Loaded with ticagrelor 180 mg in Interventional Radiology Tech Continue heparin infusion overnight Continue dual-antiplatelet therapy for at least 1 year. Trend troponins until peak, Check Echo Update beta-jose maria as BP allows. Resume home ARB High-dose statin Smoking cessation Consult cardiac Rehab Hemodynamics Rest Ao:: 140/79 Final Ao: 145/81/109 LV: 140/8 Recommendations Recommendations: PCI without planned CABG Specimens Specimens: None Radiation Exposure (mGy) 4308 Contrast (mls) 140 Anesthesia Moderate 7187-5806 Procedural Complication(s) Nonflow limiting dissection into the acute margin Disposition ICU I attest to the content of the Intraoperative Record and any orders documented therein. Any exceptions are noted below. [facility] Card Cath Procedure Codes Cardiac Catheterization Procedure 1: Cardiovascular Cath Procedures: 80072 Coronaries and LHC (+/-LV) Moderate Sedation Procedure 1: Sedation/Anesthesia: 01191 Mod Sedation by the same physician;Init15 Min Child Age 5 & Up Procedure 2: Sedation/Anesthesia: 59980 Mod Sedation by the same physician; Ea [id number] Minutes Stenting Procedure 1: Cardiovascular Stent Procedures: 99177 Perc transluminal revascularization of acute sub/total occl, aMI PG Care Time/CCT Total # of Minutes Spent Total Time Spent with Patient: Total time spent is greater than 50% in coordination of care (as documented) at patient's floor/unit and/or counseling patient:
[2024-09-28 11:16] LABS: Troponin I High Sensitivity 1247.8 pg/ml (0-20)
--- NOTE | 2024-09-28 11:17 | Cardiology Consultation ---
Date of Consultation September 28, 2024 Assessment & Plan (1) STEMI (ST elevation myocardial infarction): 100% proximal nondominant RCA post KADE Short residual nonflow limiting dissection in mid RCA extending into small marginal Mild to moderate nonculprit CAD, 40% mid LCx 2. 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 Hypertension 4. Dyslipidemialast LDL 39 03/2024 5. GERD 6. Class I obesity/PAOLA 7. Ongoing tobacco use Urgent cardiac catheterization revealed acutely occluded nondominant RCA treated with single KADE. Post procedure minimal residual chest pain and STs improved. Does have short nonflow limiting dissection distal to stent extending into small acute marginal which will manage conservatively, no need for additional intervention. Plan: Continue heparin infusion overnight. Continue DAPT with aspirin, ticagrelor. Long-term likely transition to clopidogrel after 1 month. Trend troponin until peak. Check echocardiogram later this afternoon Start metoprolol 25 mg 3 times daily and titrate up as able Resume home olmesartan Increase home rosuvastatin to 20 mg daily. Lipids, A1c in the a.m. PPI while on DAPT with his HHT Smoking cessation History of Present Illness Attending Physician: Rajiv Aguila MD History of Present Illness Mr. Mckeon is a very pleasant 68-year-old man who presented to ED with acute chest pain and ECG concerning for acute AL. No prior cardiac history. Cardiac risk factors include hypertension, dyslipidemia, class I obesity/PAOLA ongoing tobacco use. 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 He is post AVM coiling 05/2009 at [facility] [place]. Also with GERD, osteoarthritis, low back pain post prior laminectomy, history of prostate cancer. His Teri is a patient of ours. Chest pain began approximately 5 PM yesterday. Since that time pain has been intermittent but impacted his ability to sleep. Was awoken with more severe, persistent pain around 530 this morning, approximately 2 hours prior to arrival. Describes substernal pain with associated nausea. Denies similar symptoms in the past. Chest pain at time of arrival 04/17, hypertensive to 160s. EKG showed sinus rhythm inferior elevation in 3 and aVF. Interventional cardiology contacted. Family history: Multiple uncles with CAD but no first-degree relatives with premature CAD. Social history: Retired [employer]. Long-term, active smoker. Allergies Allergy/AdvReac Type Severity Reaction Status Date / Time mushroom Allergy Unknown ANAPHYLAXIS Verified 07/18/24 10:06 No Known Drug Allergies Allergy Unknown NKDA Verified 07/18/24 10:06 Home Medications Medication Instructions Recorded Confirmed Type aspirin 81 mg tablet,delayed 81 mg PO QAM 11/23/19 07/18/24 History release (Adult Aspirin Regimen) cholecalciferol (vitamin D3) 50 2,000 units PO BID 11/23/19 07/18/24 History mcg (2,000 unit) tablet ferrous sulfate 325 mg (65 mg 325 mg PO QPM 11/23/19 07/18/24 History iron) tablet (Feosol) multivitamin 1 tab PO QAM 11/23/19 07/18/24 History vitamin B complex (B 1 tab PO QAM 11/23/19 07/18/24 History Complex-Vitamin B12 tablet) triamcinolone acetonide 0.05 % 1 applic topical BID #430 grams 12/01/22 07/18/24 Rx topical ointment turmeric 100 mg-therese 150 1 cap PO QPM 12/01/22 07/18/24 History mg-olive 50 mg-oreg 150 mg-capryl capsule zinc gluconate 50 mg tablet 50 mg PO QPM 12/01/22 07/18/24 History nicotine (polacrilex) 4 mg buccal 4 mg buccal Q4H PRN nicotine 12/02/22 07/18/24 Rx lozenge cravings #108 ea gabapentin 300 mg capsule 300 mg PO BID #180 caps 02/29/24 07/18/24 Rx hydrochlorothiazide 12.5 mg tablet 12.5 mg PO QAM #90 tabs 02/29/24 07/18/24 Rx rosuvastatin 5 mg tablet (Crestor) 5 mg PO QPM #90 tabs 02/29/24 07/18/24 Rx amoxicillin 500 mg capsule 1,000 mg (2 x 500 mg) PO .COMPLEX 04/04/24 07/18/24 Rx PRN ud #4 caps olmesartan 40 mg tablet 40 mg PO DAILY #90 tabs 05/30/24 07/18/24 Rx sulindac 200 mg tablet 200 mg PO BID #180 tabs 06/21/24 07/18/24 Rx amlodipine 5 mg tablet 5 mg PO DAILY #90 tabs 06/28/24 07/18/24 Rx Patient History Medical History (Updated 09/28/24 @ 09:51 by Roselyn Mora PA-C) Colon cancer screening Osteoarthritis GERD (gastroesophageal reflux disease) History of prostate cancer treated surgically [place] (hard of hearing) Tinnitus History of stroke 2008 -- memory issues "I have trouble with names" High cholesterol Surgical History History of surgery LLL Lung AVM Coiling 05/2009 [facility] [place] History of right knee joint replacement History of lumbar fusion History of prostate biopsy History of colonoscopy History of prostatectomy History of bilateral carpal tunnel release H/O prostatectomy S/P lumbar fusion Family History Father AVM (arteriovenous malformation) Stroke Brother Leukemia Stroke Diabetes Uncle Myocardial infarction Prostate cancer Denies family history of Ovarian cancer Breast cancer Colorectal cancer Social History Smoking Status: Current every day smoker Tobacco Type: Cigarettes Cigarettes Per Day: 5-6; Smoking End Date: 8; Second Hand Exposure: No; Do You Dip or Chew Tobacco: No; Tobacco Cessation Education Requested by Patient: No Hx Alcohol Use: No Hx Substance Use: No Preferred Language: Congolese Communication Ability: Effective Visual Impairment: No Limitations Hearing Ability: Normal Produce Service Team Member Required: No Beliefs That Will Affect Care: None marital status: Current Living Situation: Spouse current occupational status: retired current occupation: Maintenance Feels Safe at Home: Yes Safety Concerns: Feels Safe At This Time Childhood Exposure to Second-Hand Smoke: Yes Dental Care, Regularly: Yes Physical Activity Frequency: Does not Exercise Physical Activity Frequency Comment: Active around the house Seatbelt Use: always Sunscreen Use: Yes Assistive Devices: Hearing Aid - Bilateral Assistive Devices Comment: not here Review of Systems Review of Systems: All systems reviewed & are unremarkable except as noted in HPI & below Physical Exam Physical Exam: General: Comfortable HEENT: Sclerae anicteric Lungs: Clear to auscultation anteriorly Cardiac: Regular rate and rhythm, no murmurs. Vascular: 2+ radial Abdomen: Soft, nontender Extremities: Well perfused, no peripheral edema Neuro: Nonfocal Psych: Alert orient x3, normal affect and mood Results & Data Vital Signs (Past 12 Hours) Vital Signs Temp Pulse Pulse Resp BP BP Pulse Ox 09/28/24 10:53 55 L 09/28/24 10:15 98.1 F 58 L 20 161/93 H 99 09/28/24 08:01 94 09/28/24 08:00 66 18 160/103 H 97 09/28/24 07:56 65 09/28/24 07:53 62 18 152/100 H 95 09/28/24 07:44 97.7 F 70 18 147/95 H 93 O2 Del Method O2 Flow Rate 09/28/24 10:53 09/28/24 10:15 Room Air 09/28/24 08:01 Nasal Cannula 09/28/24 08:00 Nasal Cannula 2 09/28/24 07:56 09/28/24 07:53 Room Air 09/28/24 07:44 Room Air PG Care Time/CCT Total # of Minutes Spent Total Time Spent with Patient: Total time spent is greater than 50% in coordination of care (as documented) at patient's floor/unit and/or counseling patient: Coding Level of Care Code 93696 INT INP/OBS CARE 3/75MIN Diagnoses STEMI (ST elevation myocardial infarction) I21.3
--- NOTE | 2024-09-28 11:22 | Critical Care Consultation ---
Date of Consultation September 28, 2024 Assessment & Plan (1) Sleep apnea: (2) STEMI (ST elevation myocardial infarction): (3) Cigarette nicotine dependence: (4) HHT (hereditary hemorrhagic telangiectasia): (5) Hyperlipidemia: (6) History of prostate cancer: (7) History of hemorrhagic cerebrovascular accident (CVA) without residual deficits: (8) Primary hypertension: (9) Chronic low back pain: (10) AVM (arteriovenous malformation): Plan Reason Critically Ill: 68-year-old male present to the hospital with complaints of chest pain. Patient went to the Lathe Scalper Operator and sent to the ICU for further care Past medical history: Dyslipidemia, PAOLA, COPD, GERD, prostate cancer s/p prostatectomy, AVM history of hereditary hemorrhagic telangiectasia status post coiling left lower lobe 05/2009 Neuro - [facility] ICU: Negative --History of 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 --History of TIA in 06/2022 --History of laminectomy with chronic low back pain On gabapentin at home Cardiac - --STEMI with RCA dissection One drug-eluting stent placed in proximal RCA Showed residual nonflow limiting dissection at the distal aspect of the stent Continue with dual antiplatelet therapy Continue with statin Continue with beta-jose maria and SIMON inhibitor/ARB Given the dissection monitor for signs of tamponade. -- Hypertension/dyslipidemia On amlodipine 5, olmesartan 40 and hydrochlorothiazide 20.5 at home On Crestor 5 mg Respiratory - CT chest 08/30/2024 personally reviewed: Minimal centrilobular emphysema appreciated bilaterally Left lower lobe 5 mm pulmonary nodule AVM coiling in the left lower lobe No significant mediastinal lymphadenopathy -- COPD Saturating well on room air --PAOLA --History of AVM in the left lower lobe S/p coiling 05/2009 GI - -- No acute issues RENAL/LYTES - -- Monitor BUNs/creatinine Avoid nephrotoxic medication - -- History of prostate cancer S/p prostatectomy ENDO - -- ICU hypoglycemia protocol HEME - -- Monitor H&H ID - -- No acute issues --Prophylaxis VTE: Heparin drip GI: None Lines: Peripheral Diet: Cardiac Plan: Given the history of dissection, monitor for signs of tamponade. Low threshold for repeating an echo Trend troponin Patient to be started on heparin drip as per cardiology recommendations Potassium being replaced Follow-up magnesium and phosphorus level Morphine for pain Please note the above document was generated using voice recognition software. It may contain grammatical, syntax or spelling errors.Any formal questions or concerns about the content, text or information contained within the body of this dictation should be directly addressed to the provider for clarification. History of Present Illness Attending Physician: Rajiv Aguila MD History of Present Illness 68-year-old male present to the hospital with complaints of chest pain Past medical history: Dyslipidemia, PAOLA, COPD, GERD, prostate cancer s/p prostatectomy, AVM history of hereditary hemorrhagic telangiectasia status post coiling left lower lobe 05/2009 Patient went to the Lathe Scalper Operator and sent to the ICU for further care Brief signout was given from Dr. Contreras At the time of examination patient systolic blood pressure was in the 140s, his heart rate was in the mid to high 50s Saturation was 94-95% on room air. He stated that he is feeling much better compared to when he came to the hospital After he came from the Lathe Scalper Operator to the ICU was complaining of some back pain. EKG was done which showed improvement compared to at the time of presentation. Denied any headache, no nausea vomiting No abdominal pain No groin or arm pain. Right arm good capillary refill Social history: Approximately [id number] smoking history, currently smoking 6 cigars a day. Used to work as a stonecutter Has a dog at home. No birds or poultry nearby Strong family history of heart disease Allergies Allergy/AdvReac Type Severity Reaction Status Date / Time mushroom Allergy Unknown ANAPHYLAXIS Verified 07/18/24 10:06 No Known Drug Allergies Allergy Unknown NKDA Verified 07/18/24 10:06 Home Medications Medication Instructions Recorded Confirmed Type aspirin 81 mg tablet,delayed 81 mg PO QAM 11/23/19 07/18/24 History release (Adult Aspirin Regimen) cholecalciferol (vitamin D3) 50 2,000 units PO BID 11/23/19 07/18/24 History mcg (2,000 unit) tablet ferrous sulfate 325 mg (65 mg 325 mg PO QPM 11/23/19 07/18/24 History iron) tablet (Feosol) multivitamin 1 tab PO QAM 11/23/19 07/18/24 History vitamin B complex (B 1 tab PO QAM 11/23/19 07/18/24 History Complex-Vitamin B12 tablet) triamcinolone acetonide 0.05 % 1 applic topical BID #430 grams 12/01/22 07/18/24 Rx topical ointment turmeric 100 mg-therese 150 1 cap PO QPM 12/01/22 07/18/24 History mg-olive 50 mg-oreg 150 mg-capryl capsule zinc gluconate 50 mg tablet 50 mg PO QPM 12/01/22 07/18/24 History nicotine (polacrilex) 4 mg buccal 4 mg buccal Q4H PRN nicotine 12/02/22 07/18/24 Rx lozenge cravings #108 ea gabapentin 300 mg capsule 300 mg PO BID #180 caps 02/29/24 07/18/24 Rx hydrochlorothiazide 12.5 mg tablet 12.5 mg PO QAM #90 tabs 02/29/24 07/18/24 Rx rosuvastatin 5 mg tablet (Crestor) 5 mg PO QPM #90 tabs 02/29/24 07/18/24 Rx amoxicillin 500 mg capsule 1,000 mg (2 x 500 mg) PO .COMPLEX 04/04/24 07/18/24 Rx PRN ud #4 caps olmesartan 40 mg tablet 40 mg PO DAILY #90 tabs 05/30/24 07/18/24 Rx sulindac 200 mg tablet 200 mg PO BID #180 tabs 06/21/24 07/18/24 Rx amlodipine 5 mg tablet 5 mg PO DAILY #90 tabs 06/28/24 07/18/24 Rx Patient History Medical History (Updated 09/28/24 @ 12:03 by Jeremy Joel DO) Colon cancer screening Osteoarthritis GERD (gastroesophageal reflux disease) History of prostate cancer treated surgically [place] (hard of hearing) Tinnitus History of stroke 2008 -- memory issues "I have trouble with names" High cholesterol Surgical History History of surgery LLL Lung AVM Coiling 05/2009 [facility] History of right knee joint replacement History of lumbar fusion History of prostate biopsy History of colonoscopy History of prostatectomy History of bilateral carpal tunnel release H/O prostatectomy S/P lumbar fusion Family History Father AVM (arteriovenous malformation) Stroke Brother Leukemia Stroke Diabetes Uncle Myocardial infarction Prostate cancer Denies family history of Ovarian cancer Breast cancer Colorectal cancer Social History Smoking Status: Current every day smoker Tobacco Type: Cigarettes Cigarettes Per Day: 5-6; Smoking End Date: 8; Second Hand Exposure: No; Do You Dip or Chew Tobacco: No; Tobacco Cessation Education Requested by Patient: No Hx Alcohol Use: No Hx Substance Use: No Preferred Language: Cuban Communication Ability: Effective Visual Impairment: No Limitations Hearing Ability: Normal Diving Supervisor Required: No Beliefs That Will Affect Care: None marital status: Current Living Situation: Spouse current occupational status: retired current occupation: Maintenance Feels Safe at Home: Yes Safety Concerns: Feels Safe At This Time Childhood Exposure to Second-Hand Smoke: Yes Dental Care, Regularly: Yes Physical Activity Frequency: Does not Exercise Physical Activity Frequency Comment: Active around the house Seatbelt Use: always Sunscreen Use: Yes Assistive Devices: Hearing Aid - Bilateral Assistive Devices Comment: not here Review of Systems 2 Review of Systems: All systems reviewed & are unremarkable except as noted in HPI & below Physical Exam 2 Physical Exam: Constitutional: No acute distress HEENT: EOMI, PERRLA Respiratory system: Good air entry bilaterally, no wheeze, no rhonchi, no crackles CVS: S1-S2 positive, no murmurs or gallops Abdomen: Soft, nontender, nondistended, positive bowel sounds x4 Extremities: +2 pulses bilaterally radialis/ dorsalis pedis, no cyanosis, minimal pitting edema bilateral lower extremity Neuro: Awake alert oriented x3 Psych: Normal mood and affect G/U: No Natarajan Skin: no rashes, warm and dry Lymphatic: no cervical or axillary lymphadenopathy Results & Data Results & Data Vital Signs (Past 12 Hours) Vital Signs Temp Pulse Pulse Resp BP BP Pulse Ox 09/28/24 10:53 55 L 09/28/24 10:15 36.7 C 58 L 20 161/93 H 99 09/28/24 08:01 94 09/28/24 08:00 66 18 160/103 H 97 09/28/24 07:56 65 09/28/24 07:53 62 18 152/100 H 95 09/28/24 07:44 36.5 C 70 18 147/95 H 93 O2 Del Method O2 Flow Rate 09/28/24 10:53 09/28/24 10:15 Room Air 09/28/24 08:01 Nasal Cannula 09/28/24 08:00 Nasal Cannula 2 09/28/24 07:56 09/28/24 07:53 Room Air 09/28/24 07:44 Room Air Laboratory Results 09/28/24 07:50 09/28/24 07:50 Coding Level of Care Code 99021 IN/OBS CONSULT LVL 5,80M Diagnoses Sleep apnea G47.30 STEMI (ST elevation myocardial infarction) I21.3 Cigarette nicotine dependence F17.210 HHT (hereditary hemorrhagic telangiectasia) I78.0 Hyperlipidemia E78.5 History of prostate cancer Z85.46 History of hemorrhagic cerebrovascular accident (CVA) without residual deficits Z86.73 Primary hypertension I10 Chronic low back pain M54.5; G89.29 AVM (arteriovenous malformation) Q27.30
[2024-09-28] MEDS: HEPARIN SODIUM/DEXTROSE 25,000 UNITS/500 ML BAG IV SCH (11:25)
[2024-09-28] MEDS: ATROPINE SULFATE 0.1 MG/ML 10ML SYR IV ONE (11:25)
[2024-09-28] MEDS: MoRPHine SULFATE 2 MG/ML CARP IV PRN (11:26)
[2024-09-28 11:45] LABS: Magnesium 1.9 mg/dl (1.7-2.4); Phosphorus 2.5 mg/dl (2.5-4.9)
[2024-09-28] MEDS: ROSUVASTATIN CALCIUM 20 MG TAB PO SCH (11:48)
[2024-09-28] MEDS: POTASSIUM CHLORIDE CRTAB 20 MEQ TABCR PO STA (11:48)
[2024-09-28] MEDS: ICU Protocol for HYPERglycemia SCH (11:48)
[2024-09-28] MEDS: METOPROLOL TARTRATE 25 MG TAB PO SCH (13:27)
--- NOTE | 2024-09-28 14:10 | XRay Report ---
XR chest 1V portable CLINICAL HISTORY: Shortness of breath. COMPARISON STUDY: Chest radiograph performed earlier today. Chest CT August 30, 2024. FINDINGS: Lung volumes are normal. There is no consolidation. Endovascular coils within the left lowe r lobe are again noted. There is no pneumothorax or pleural effusion. Cardiac size is normal. Mediast inal contours are normal. There is no evidence for pulmonary edema. IMPRESSION: No acute cardiopulmonary findings. No significant change in appearance of the chest. ACT 112: Negative or not required by law. Electronically signed by: Kody Castillo M.D. 09/28/2024 2:08 PM
--- NOTE | 2024-09-28 14:18 | XCELERA ---
[id number]
[2024-09-28] MEDS: Heparin IV Adult Wt-Based Low-Dose *NO* INITIAL Bolus Protocol IV STA (15:47)
[2024-09-28 18:47] LABS: ANTI-Xa, UFH(UnfractionatedHep 0.16 IU/ml (0.3-0.7)
[2024-09-28] MEDS: HEPARIN SOD (PORCINE) 1000 UNIT/ML IV ONE (20:22)
[2024-09-28] MEDS: TICAGRELOR 90 MG TAB PO SCH (20:33)
[2024-09-28] MEDS: DOCUSATE SODIUM 100 MG CAP PO SCH (20:36)
--- NOTE | 2024-09-28 22:43 | Electrocardiogram Report ---
Test Reason : Blood Pressure : */* mmHG Vent. Rate : 61 BPM Atrial Rate : 61 BPM P-R Int : 176 ms QRS Dur : 78 ms QT Int : 392 ms P-R-T Axes : 53 46 72 degrees QTcB Int : 394 ms Normal sinus rhythm Low voltage QRS ST elevation consider inferior injury or acute infarct ACUTE FL / STEMI Consider right ventricular involvement in acute inferior infarct Abnormal ECG When compared with ECG of 11-Jun-2022 08:52, ST more elevated in Inferior leads Confirmed by Jonathan Zimmer ([id number]) on 09/28/2024 10:43:09 PM Referred By: REFERRED SELF Confirmed By: Jonathan Zimmer
[2024-09-29 02:59] LABS: BUN Creatinine Ratio 14.6 (10-20); Calcium 8.7 mg/dl (8.6-10.3); Creatinine Clr Calc Pharmacy 82.9 ml/min; Potassium 3.6 mmol/L (3.5-5.1)
[2024-09-29 03:13] LABS: ANTI-Xa, UFH(UnfractionatedHep 0.33 IU/ml (0.3-0.7)
[2024-09-29 05:22] LABS: Basophils # (auto) 0.07 K/uL (0.00-0.20); Basophils % (auto) 0.7 %; Eosinophils # (auto) 0.21 K/uL (0.00-0.50); Hematocrit (blood only) 36.5 % (42.0-52.0); Hemoglobin 12.2 g/dl (14.0-18.0); Immature Granulocytes # (auto) 0.03 K/uL (0.01-0.20); Immature Granulocytes % (auto) 0.3 %; Lymphocytes # (auto) 1.46 K/uL (1.20-3.40); Lymphocytes % (auto) 14.1 %; Mean Corpuscular Hemoglobin 31.8 pg (25.0-34.0); Mean Corpuscular Hgb Conc 33.4 g/dL (32.0-36.0); Mean Corpuscular Volume 95.1 fL (80.0-100.0); Monocytes # (auto) 0.74 K/uL (0.11-0.59); Monocytes % (auto) 7.2 %; Neutrophils # (auto) 7.81 K/uL (1.40-6.50); Neutrophils % (auto) 75.7 %; Platelet Count 179 K/uL (130-400); RDW Coefficient of Variation 13.3 % (11.5-14.5); RDW Standard Deviation 46.7 fL (36.4-46.3); Red Blood Count 3.84 M/uL (4.70-6.10); White Blood Count 10.32 K/ul (4.8-10.8)
[2024-09-29] MEDS: POTASSIUM CHLORIDE CRTAB 20 MEQ TABCR PO ONE (06:17)
[2024-09-29 08:10] LABS: Estimated Average Glucose 105 mg/dl; Hemoglobin A1C 5.3 % (4.5-5.6)
[2024-09-29 08:46] LABS: Troponin I High Sensitivity 7707.4 pg/ml (0-20)
--- NOTE | 2024-09-29 08:48 | Critical Care Progress Note ---
Date of Service September 29, 2024 Assessment & Plan (1) Sleep apnea: (2) STEMI (ST elevation myocardial infarction): (3) Cigarette nicotine dependence: (4) HHT (hereditary hemorrhagic telangiectasia): (5) Hyperlipidemia: (6) History of prostate cancer: (7) History of hemorrhagic cerebrovascular accident (CVA) without residual deficits: (8) Primary hypertension: (9) Chronic low back pain: (10) AVM (arteriovenous malformation): Plan Reason Critically Ill: 68-year-old male present to the hospital with complaints of chest pain. Patient went to the Director Sales And Marketing and sent to the ICU for further care Past medical history: Dyslipidemia, PAOLA, COPD, GERD, prostate cancer s/p prostatectomy, AVM history of hereditary hemorrhagic telangiectasia status post coiling left lower lobe 05/2009 Neuro - [facility]: Negative --History of 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 --History of TIA in 06/2022 --History of laminectomy with chronic low back pain On gabapentin at home Cardiac - --STEMI with RCA dissection One drug-eluting stent placed in proximal RCA Showed residual nonflow limiting dissection at the distal aspect of the stent Continue with dual antiplatelet therapy Continue with statin Continue with beta-jose maria and SIMON inhibitor/ARB Given the dissection monitor for signs of tamponade. -- Hypertension/dyslipidemia On amlodipine 5, olmesartan 40 and hydrochlorothiazide 20.5 at home On Crestor 5 mg Respiratory - CT chest 08/30/2024 personally reviewed: Minimal centrilobular emphysema appreciated bilaterally Left lower lobe 5 mm pulmonary nodule AVM coiling in the left lower lobe No significant mediastinal lymphadenopathy -- COPD Saturating well on room air --PAOLA Noncompliant with CPAP Risk of not using the CPAP explained the patient in depth He is willing to try it again --History of AVM in the left lower lobe S/p coiling 05/2009 GI - -- No acute issues RENAL/LYTES - -- Monitor BUNs/creatinine Avoid nephrotoxic medication - -- History of prostate cancer S/p prostatectomy ENDO - -- ICU hypoglycemia protocol HEME - -- Monitor H&H ID - -- No acute issues --Prophylaxis VTE: Heparin drip GI: Pantoprazole Lines: Peripheral Diet: Cardiac Plan: In/out: +906, urine output is not measured accurately Potassium being replaced Follow-up magnesium and phosphorus and replete if needed There has been some drop in hemoglobin, he is +1 L. Will repeat H&H later today Hemodynamically stable to be downgrade to medical floor Please note the above document was generated using voice recognition software. It may contain grammatical, syntax or spelling errors.Any formal questions or concerns about the content, text or information contained within the body of this dictation should be directly addressed to the provider for clarification. Admission and Anticipated Discharge Date Admission Date: September 28, 2024 Subjective Patient seen and examined at bedside. No acute distress, no adverse events overnight Had a good night sleep Denies any chest pain, no headache, no nausea, no vomiting Fair appetite Denies any headache or blurry vision Review of Systems 2 Review of Systems: All systems reviewed & are unremarkable except as noted in Subjective Physical Exam 2 Physical Exam: Constitutional: No acute distress HEENT: EOMI, PERRLA Respiratory system: Good air entry bilaterally, no wheeze, no rhonchi, minimal crackles bilateral lower lobes, more on the right side CVS: S1-S2 positive, no murmurs or gallops Abdomen: Soft, nontender, nondistended, positive bowel sounds x4 Extremities: +2 pulses bilaterally radialis/ dorsalis pedis, no cyanosis, no edema Neuro: Awake alert oriented x3 Psych: Normal mood and affect G/U: No Natarajan Skin: no rashes, warm and dry Lymphatic: no cervical or axillary lymphadenopathy Results & Data Results & Data Vital Signs (Past 12 Hours) Vital Signs Temp Pulse Resp BP Pulse Ox O2 Del Method O2 Flow Rate 09/29/24 06:00 64 18 103/65 96 09/29/24 05:00 55 L 5 L 115/63 96 09/29/24 04:00 55 L 15 116/76 96 09/29/24 03:00 57 L 19 130/86 96 Nasal Cannula 2 09/29/24 02:00 58 L 16 122/73 93 Room Air 09/29/24 01:00 63 18 149/90 H 96 Room Air 09/29/24 00:03 36.9 C 57 L 13 125/79 95 09/29/24 00:00 59 L 09/28/24 23:00 67 12 125/73 92 Room Air 09/28/24 22:15 63 17 141/85 H 95 09/28/24 21:09 66 17 131/84 91 Laboratory Results 09/29/24 05:01 09/29/24 02:24 Coding Level of Care Code 63677 SUB INP/OBS CARE 2/35MIN Diagnoses Sleep apnea G47.30 STEMI (ST elevation myocardial infarction) I21.3 Cigarette nicotine dependence F17.210 HHT (hereditary hemorrhagic telangiectasia) I78.0 Hyperlipidemia E78.5 History of prostate cancer Z85.46 History of hemorrhagic cerebrovascular accident (CVA) without residual deficits Z86.73 Primary hypertension I10 Chronic low back pain M54.5; G89.29 AVM (arteriovenous malformation) Q27.30
[2024-09-29] MEDS: ASPIRIN 81 MG ECTAB PO SCH (09:17)
[2024-09-29] MEDS: LOSARTAN POTASSIUM 50 MG TAB PO SCH (09:17)
[2024-09-29] MEDS: PANTOprazole 40 MG TAB PO SCH (09:17)
[2024-09-29] MEDS: POTASSIUM CHLORIDE CRTAB 20 MEQ TABCR PO STA (09:23)
[2024-09-29 09:39] LABS: Magnesium 1.9 mg/dl (1.7-2.4); Phosphorus 2.4 mg/dl (2.5-4.9)
[2024-09-29] MEDS: MAGNESIUM OXIDE 400 MG TAB PO SCH (10:23)
[2024-09-29] MEDS: FERROUS SULFATE 325 MG TAB PO SCH (10:23)
[2024-09-29] MEDS: POT PHOSPHATE MONOBASIC W/ SOD TAB PO SCH (10:23)
[2024-09-29 12:26] LABS: Hematocrit (blood only) 39.2 % (42.0-52.0)
--- NOTE | 2024-09-29 12:26 | Cardiology Progress Note ---
Date of Service September 29, 2024 Assessment & Plan (1) STEMI (ST elevation myocardial infarction): Plan: 100% proximal nondominant RCA post KADE Short residual nonflow limiting dissection in mid RCA extending into small marginal Mild to moderate nonculprit CAD, 40% mid LCx 2. 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 Hypertension 4. Dyslipidemialast LDL 44 09/2024 5. GERD 6. Class I obesity/[place] 7. Ongoing tobacco use Stable from a cardiac standpoint. Chest/back pain-free. Troponins peaked. Hemodynamically and electrically stable. On exam today no signs of heart failure or access site complications Echo yesterday showed preserved LV function with no wall motion abnormalities Heparin infusion discontinued this morning Continue DAPT with aspirin, ticagrelor. Long-term likely transition to clopidogrel after 1 month. Continue current metoprololdischarge on Toprol-XL 50 mg daily Continue current ARBHome on prior olmesartan Continue rosuvastatin 20 mg daily PPI while on DAPT with his HHT Smoking cessation From a cardiac standpoint okay with transfer to telemetry today. Up walking halls later. Likely home tomorrow. Follow-up with me in 2 weeks. We discussed cardiac rehab as an outpatient. Admission and Anticipated Discharge Date Admission Date: September 28, 2024 Subjective Feeling well this morning. Denies any chest pain, back pain or significant shortness of breath. Telemetry reviewedsinus bradycardia, no other events Review of Systems Review of Systems: All systems reviewed & are unremarkable except as noted in Subjective Physical Exam Physical Exam: General: Comfortable HEENT: Sclerae anicteric Lungs: Clear to auscultation anteriorly Cardiac: Regular rate and rhythm, no murmurs. Vascular: Right radial artery access site with no ecchymosis, hematoma. Distal pulse and sensation intact. Abdomen: Soft, nontender Extremities: Well perfused, no peripheral edema Neuro: Nonfocal Psych: Alert orient x3, normal affect and mood Results & Data Vital Signs (Past 12 Hours) Vital Signs Pulse Resp BP Pulse Ox O2 Del Method O2 Flow Rate 09/29/24 12:03 57 L 23 09/29/24 11:00 113/64 09/29/24 11:00 113/64 09/29/24 11:00 54 L 20 09/29/24 10:00 138/90 09/29/24 10:00 138/90 09/29/24 10:00 54 L 22 09/29/24 09:09 63 18 98 09/29/24 08:06 64 19 95 09/29/24 08:00 129/74 09/29/24 08:00 70 09/29/24 07:50 129/83 09/29/24 07:50 129/83 09/29/24 07:45 78 21 09/29/24 07:12 57 L 95 Room Air 09/29/24 06:00 64 18 103/65 96 09/29/24 05:00 55 L 5 L 115/63 96 09/29/24 04:00 55 L 15 116/76 96 09/29/24 03:00 57 L 19 130/86 96 Nasal Cannula 2 09/29/24 02:00 58 L 16 122/73 93 Room Air 09/29/24 01:00 63 18 149/90 H 96 Room Air PG Care Time/CCT Total # of Minutes Spent Total Time Spent with Patient: Total time spent is greater than 50% in coordination of care (as documented) at patient's floor/unit and/or counseling patient: Coding Level of Care Code 27164 SUB INP/OBS CARE 3/50MIN Diagnoses STEMI (ST elevation myocardial infarction) I21.3
--- NOTE | 2024-09-29 20:13 | Hospitalist Progress Note ---
Date of Service September 29, 2024 Assessment & Plan (1) STEMI (ST elevation myocardial infarction): Plan: Inferior STEMI due to occluded RCA s/p emergent cath by Dr Leo Contreras with successful KADE to the RCA complicated by short-segment dissection in a small marginal branch vessel - no Rx needed other than heparin IV which was stopped today patient without any cardiopulmonary complaints today peak HS troponin about 10,000 remains on asa 81mg daily, losartan 100mg daily, metoprolol tartrate, brilinta BID, crestor 20mg daily lipid panel noted - LDL 44, HDL 30, trigs 83 echo with preserved EF and no WMAs no evidence of any clinical CHF tobacco usage - spiritual counselor to quit appreciate cardiology & ICU assistance mild bradycardia - would simply reduce from TID to BID dosing (2) Hypokalemia: Plan: replace resolved (3) Primary hypertension: Plan: cont BB cont losartan would add back the amlodipine as well (4) Hyperlipidemia: Plan: crestor increased from 5mg/day to 20mg/day lipid panel profile levels as in #1 above (5) AVM (arteriovenous malformation): Plan: 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 s/p LLL Lung AVM coiling 05/2009 - has routine echos and Chest CTs managed by PCP (6) Sleep apnea: Plan: noncompliant on home CPAP - no usage in a year encourage compliance Plan COPD - no exacerbation at this time chronic back pain and OA - hold Sulindac and all NSAIDs; spiritual counselor him he cannot take such moving forward; resume Gabapentin, Tylenol prn GERD - PPI in light of DAPT low-grade temp yesterday - perhaps due to hot room; no infectious symptoms; he feels well; and no fevers today --> monitor ambulate tonight/tomorrow hopefully d/c home tomorrow on 09/30 Admission and Anticipated Discharge Date Admission Date: September 28, 2024 Subjective tele - episodes of bradycardia (brief) - 40s at times; mainly during sleep, but occasionally awake as well pt w/o complaints of chest pain, back pain, arm pain, nausea, emesis, abd pain feels well no right wrist complaints Review of Systems Review of Systems: gen - had low grade temp last pm; stated the room was warm (temp was turned up); no fevers/chills today HENT - no URI symptoms pulm - no cough or dyspnea CV - no orthopnea or PND or edema Physical Exam Physical Exam: gen - NAD, looks well mouth - MMM neck - no JVD heart - RRR, s1 s2, no murmur lungs - CTA b/l abd - soft NT ND BS+ vascular - right wrist - radial pulse 2+, no hematoma, no aneurysm ext - trace edema, pulses 2+ b/l psych - a/o x 3 Results & Data Results & Data Vital Signs (Past 12 Hours) Vital Signs Temp Pulse Resp BP Pulse Ox 09/29/24 19:51 37.1 C 09/29/24 19:48 67 15 161/93 H 09/29/24 19:09 66 17 09/29/24 19:00 133/83 09/29/24 18:00 53 L 12 09/29/24 17:05 132/79 09/29/24 17:03 65 12 09/29/24 17:00 73 18 09/29/24 16:03 54 L 18 09/29/24 16:00 121/59 L 09/29/24 16:00 121/59 L 09/29/24 16:00 57 L 09/29/24 15:57 55 L 18 09/29/24 15:00 49 L 14 09/29/24 14:03 60 25 H 09/29/24 14:00 148/80 H 09/29/24 13:00 62 12 09/29/24 13:00 136/86 09/29/24 12:03 57 L 23 09/29/24 11:00 113/64 09/29/24 11:00 113/64 09/29/24 11:00 54 L 20 09/29/24 10:00 138/90 09/29/24 10:00 138/90 09/29/24 10:00 54 L 22 09/29/24 09:09 63 18 98 Laboratory Results Laboratory Results - last 24 hr 09/29/24 09/29/24 09/29/24 02:24 07:57 12:03 WBC RBC Hgb 13.0 L Hct 39.2 L MCV MCH MCHC RDW Std Deviation RDW Coeff of Gaurav Plt Count MPV Immature Gran % (Auto) Neut % (Auto) Lymph % (Auto) [place] % (Auto) Eos % (Auto) Baso % (Auto) Neut # (Auto) Lymph # (Auto) [place] # (Auto) Eos # (Auto) Baso # (Auto) Immature Gran # (Auto) Sodium Potassium Chloride Carbon Dioxide Anion Gap BUN Creatinine Est Cr Clr Drug Dosing eGFR BUN/Creatinine Ratio Glucose Estimat Average Glucose 105 Hemoglobin A1c 5.3 Calcium Phosphorus 2.4 L Magnesium 1.9 Troponin I High Sens 7707.4 H* D PG Care Time/CCT Total # of Minutes Spent Total Time Spent with Patient: Total time spent is greater than 50% in coordination of care (as documented) at patient's floor/unit and/or counseling patient: Coding Level of Care Code 68110 SUB INP/OBS CARE 2/35MIN Diagnoses STEMI (ST elevation myocardial infarction) I21.3 Hypokalemia E87.6 Primary hypertension I10 Hyperlipidemia E78.5 AVM (arteriovenous malformation) Q27.30 Sleep apnea G47.30
[2024-09-30 03:08] VITALS: RESP 17; O2SAT 96
[2024-09-30 05:12] LABS: Basophils # (auto) 0.05 K/uL (0.00-0.20); Basophils % (auto) 0.6 %; Eosinophils # (auto) 0.31 K/uL (0.00-0.50); Eosinophils % (auto) 3.4 %; Hematocrit (blood only) 35.3 % (42.0-52.0); Hemoglobin 11.9 g/dl (14.0-18.0); Immature Granulocytes # (auto) 0.03 K/uL (0.01-0.20); Immature Granulocytes % (auto) 0.3 %; Lymphocytes # (auto) 1.17 K/uL (1.20-3.40); Mean Corpuscular Hemoglobin 32.2 pg (25.0-34.0); Mean Corpuscular Hgb Conc 33.7 g/dL (32.0-36.0); Mean Corpuscular Volume 95.7 fL (80.0-100.0); Mean Platelet Volume 12.2 fL (9.4-12.4); Monocytes # (auto) 0.77 K/uL (0.11-0.59); Monocytes % (auto) 8.5 %; Neutrophils # (auto) 6.69 K/uL (1.40-6.50); Neutrophils % (auto) 74.2 %; Platelet Count 171 K/uL (130-400); RDW Coefficient of Variation 13.4 % (11.5-14.5); RDW Standard Deviation 47.8 fL (36.4-46.3); Red Blood Count 3.69 M/uL (4.70-6.10); White Blood Count 9.02 K/ul (4.8-10.8)
[2024-09-30 05:23] LABS: BUN Creatinine Ratio 16.7 (10-20); Calcium 8.7 mg/dl (8.6-10.3); Creatinine Clr Calc Pharmacy 84.4 ml/min
--- NOTE | 2024-09-30 08:55 | Cardiology Progress Note ---
Date of Service September 30, 2024 Assessment & Plan (1) STEMI (ST elevation myocardial infarction): Plan: 100% proximal nondominant RCA post KADE Short residual nonflow limiting dissection in mid RCA extending into small marginal Mild to moderate nonculprit CAD, 40% mid LCx 2. 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 Hypertension 4. Dyslipidemialast LDL 44 09/2024 5. GERD 6. Class I obesity/[place] 7. Ongoing tobacco use No recurrent symptoms. Normal examination today. Walking around the [place] yesterday without dyspnea or chest pain. No arrhythmias on telemetry. I think he would be stable for discharge today. He will continue dual antiplatelet therapy with aspirin and Brilinta Metoprolol to tartrate could be changed to metoprolol succinate 50 mg daily He will continue his home olmesartan Rosuvastatin increased to 20 mg daily We discussed precautions involving the right wrist and the need for cardiac rehab to be arranged as an outpatient. Admission and Anticipated Discharge Date Admission Date: September 28, 2024 Subjective This morning patient claims to be feeling well. He was ambulatory around the [facility] yesterday without recurrent symptoms. He denied any recurrent chest discomfort or breathing difficulty. No dizziness or lightheadedness. No sense of palpitation. No pain at the right radial access site or right hand. Review of Systems Review of Systems: Per HPI Physical Exam Physical Exam: The patient is alert and oriented. Mood and affect appeared normal. He answered all questions appropriately. HEENT: Pupils are equal and reactive to light and accommodation. Extraocular movements are intact. The sclerae are anicteric. Neuro: Cranial nerves intact Lungs: Clear to auscultation bilaterally. He has good air movement without use of accessory muscles. No rales wheezes or rhonchi. Cardiac: Heart demonstrates a regular rate and rhythm. Normal S1 and S2. No murmurs on examination. Pulses: The patient has palpable radial pulses bilaterally that are equal in intensity. Extremities: There was no evidence of hypoperfusion. There is no cyanosis or clubbing. There is no edema. Good perfusion of the right hand with palpable right radial pulse. Some bruising of the thenar eminence. Skin: I did not appreciate any rashes on examination today. Results & Data Vital Signs (Past 12 Hours) Vital Signs Temp Pulse Pulse Resp BP Pulse Ox O2 Del Method 09/30/24 03:07 37.0 C 74 17 147/86 H 96 Room Air 09/30/24 00:00 59 L 09/29/24 23:47 37.0 C 69 12 130/82 95 Room Air Laboratory Results Abnormal Lab Results 09/29/24 09/29/24 09/30/24 07:57 12:03 04:15 WBC 9.02 RBC 3.69 L Hgb 13.0 L 11.9 L Hct 39.2 L 35.3 L MCV 95.7 MCH 32.2 MCHC 33.7 RDW Std Deviation 47.8 H RDW Coeff of Gaurav 13.4 Plt Count 171 MPV 12.2 Immature Gran % (Auto) 0.3 Neut % (Auto) 74.2 Lymph % (Auto) 13.0 [place] % (Auto) 8.5 Eos % (Auto) 3.4 Baso % (Auto) 0.6 Neut # (Auto) 6.69 H Lymph # (Auto) 1.17 L [place] # (Auto) 0.77 H Eos # (Auto) 0.31 Baso # (Auto) 0.05 Immature Gran # (Auto) 0.03 Sodium 140 Potassium 4.0 Chloride 112 H Carbon Dioxide 23 Anion Gap 5 BUN 17 Creatinine 1.02 Est Cr Clr Drug Dosing 84.4 eGFR 79.56 BUN/Creatinine Ratio 16.7 Glucose 98 Calcium 8.7 Phosphorus 2.4 L Magnesium 1.9 Diagnostic Findings Echocardiogram 09/28/2024: Normal LV systolic function with ejection fraction 60 to 65%. Moderate LVH. No significant valvular heart disease. No regional wall motion abnormalities. PG Care Time/CCT Total # of Minutes Spent Total Time Spent with Patient: Total time spent is greater than 50% in coordination of care (as documented) at patient's floor/unit and/or counseling patient: Coding Level of Care Code 03668 SUB INP/OBS CARE 2/35MIN Diagnoses STEMI (ST elevation myocardial infarction) I21.3
[2024-09-30] MEDS: amLODIPine BESYLATE 5 MG TAB PO SCH (09:28)
[2024-09-30] MEDS: GABAPENTIN 300 MG CAP PO SCH (09:28)
[2024-09-30 09:45] VITALS: TEMP 98.1
[2024-09-30 11:40] VITALS: BP 161/93; PULSE 74
--- NOTE | 2024-09-30 11:40 | Discharge Summary ---
Discharge Summary Date of Service September 30, 2024 Principal Dx & Hospital Course #1 = Principal Diagnosis (1) STEMI (ST elevation myocardial infarction): Inferior STEMI due to occluded RCA s/p emergent cath by Dr Leo Contreras with successful KADE to the RCA complicated by short-segment dissection in a small marginal branch vessel - no Rx needed other than heparin IV which was stopped today patient without any cardiopulmonary complaints today peak HS troponin about 10,000 remains on asa 81mg daily, losartan 100mg daily, metoprolol tartrate, brilinta BID, crestor 20mg daily lipid panel noted - LDL 44, HDL 30, trigs 83 echo with preserved EF and no WMAs no evidence of any clinical CHF tobacco usage - residential treatment counselor to quit appreciate cardiology & ICU assistance mild bradycardia - would simply reduce from TID to BID dosing (2) Hypokalemia: replace resolved (3) Primary hypertension: cont BB cont losartan would add back the amlodipine as well (4) Hyperlipidemia: crestor increased from 5mg/day to 20mg/day lipid panel profile levels as in #1 above (5) AVM (arteriovenous malformation): 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 s/p LLL Lung AVM coiling 05/2009 - has routine echos and Chest CTs managed by PCP (6) Sleep apnea: noncompliant on home CPAP - no usage in a year encourage compliance Plan COPD - no exacerbation at this time chronic back pain and OA - hold Sulindac and all NSAIDs; residential treatment counselor him he cannot take such moving forward; resume Gabapentin, Tylenol prn GERD - PPI in light of DAPT low-grade temp yesterday - perhaps due to hot room; no infectious symptoms; he feels well; and no fevers today --> monitor ambulate tonight/tomorrow hopefully d/c home tomorrow on 09/30 Admission HPI Per Admitting Provider Patient is a 68-year-old male with a past medical history of hypertension, hyperlipidemia, obesity, severe PAOLA, COPD, GERD, prostate cancer s/p prostatectomy, OA, AVM s/p coiling. he presents today due to chest pain, he was taken to the [facility] and evaluated in the ICU. 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 He went through his night as per usual, he woke up this morning with 8/10 chest pain that he described as pressure, radiating down left arm, and through his back/between shoulder blades. He had associated dyspnea. After cardiac cath in which he had a stent to the RCA, he is feeling better. He states he just has 3/10 back pain. He stated he does have a family history of MIs, on his maternal side he had multiple uncles with MIs and stent placement. Patient denies headache, dizziness, lightheadedness, cough, abdominal pain, nausea, vomiting, edema, numbness, tingling. He does have a smoking history, 5 to 6 cigarettes/day for the past 15 to 20 years; He smoked for many years before that but had a multi year break. He denies past history of diabetes, or other cancers. He has not used his home CPAP in about a year. He did not take his home medications this morning. He wishes to be full code at this time. Discharge Exam gen - NAD, looks well mouth - MMM neck - no JVD heart - RRR, s1 s2, no murmur lungs - CTA b/l abd - soft NT ND BS+ vascular - right wrist - radial pulse 2+, no hematoma, no aneurysm ext - trace edema, pulses 2+ b/l psych - a/o x 3 Discharge Plan Discharge Items Patient Disposition: Home - Self-Care Reason For Visit: acute heart attack Discharge Diagnosis: 1. acute inferior wall myocardial infarction / "STEMI" / heart attack 2. placement of stent in the right coronary artery - Dr Leo Contreras 3. coronary artery disease 4. sleep apnea 5. high cholesterol 6. high blood pressure Activity: Per Instructions section Lifting: No more than 5 pounds Lifting Comment: No lifting more than 5 pounds with the right hand or wrist for 5 days Sexual Activity: Wait until after follow-up appointment Exercise/Sports: Wait until after follow-up appointment Driving/Machine Use: NO DRIVING x 3 days Non-emergency contact: Primary Care Provider and Treasurer Call non-emergency contact if: you have any medication questions and your symptoms worsen Follow-up/Referrals: Mega Contreras MD [Physician] - (2 weeks ) Ailin Triplett MD [Primary Care Provider] - (1 week) Diet: Heart Healthy Addtl Attending Provider Instructions: Mr Mckeon, You were hospitalized after having had a heart attack. The heart attack involved the bottom portion of the heart. The specific artery that was clogged/blocked was the RIGHT CORONARY ARTERY. It was 100% blocked at the time of the heart catheterization. Dr Leo Contreras from [facility] placed a stent in the clogged right coronary artery. Following your catheterization you were admitted to the ICU where you remained stable until the time of discharge. You were started on various heart medicines by cardiology. An echocardiogram of your heart shows no obvious damage to the heart or any congestive heart failure resulting from the heart attack. This is great news for your heart health. Until you see Dr Contreras plan to take it easy and avoid strenuous activities. When you have your follow-up with cardiology they will talk to you about cardiac rehab and other activities that you can start to get involved with. Recommendations - 1. NEW heart medicines - * Brilinta (ticagrelor) 90mg twice daily. This medicine will prevent the stent from getting blocked. This medicine is VERY IMPORTANT to your heart health. * Metoprolol succinate 50mg once daily 2. Continue the following heart medicines - * aspirin 81mg daily * rosuvastatin - we have INCREASED the dose to 20mg once daily thus a new prescription will be called to the pharmacy * olmesartan 40mg once daily * amlodipine 5mg once daily 3. STOP your hydrochlorothiazide 4. STOP your sulindac which is an anti-inflammatory pill. Anti-inflammatory medicines are typically not safe nor recommended in those who have had a heart attack. It is OK to use tylenol as needed for aches/pains. 5. DO NOT TAKE any dqet-qay-[id number] anti-inflammatory medicine including motrin, ibuprofen, naprosyn, or aleve. 6. If you have ANY symptoms that remind you of your heart attack - chest pain, back pain, arm pain - or you have shortness of breath/nausea/sweating - take nitroglycerin tablets under the tongue. If you have to use nitroglycerin please seek medical attention right away. The nitroglycerin is for emergency purposes only. It has a shelf-life of about 1 year. Keep the bottle with you at all times. 7. Please speak to your family doctor about the following - * getting back on your CPAP for sleep apnea; untreated sleep apnea has significant negative effects on the heart, your blood pressure, etc. * ways to help you quit smoking 8. Follow-up - see separate section Return to [facility] if - * you have any symptoms of another heart attack - chest pain, back pain, arm pain, shortness of breath, etc. * you have to use nitroglycerin tablets under the tongue * you have any concerns about your recent heart catheterization site (right wrist) * any other concerns It was our pleasure to care for you! Happy Thanksgiving, -Dr Mingo Saeed Hr Recruiter Provider Instructions: Home Care: * Take your medications exactly as directed. Don't skip doses. * Remember that recovery after a heart attack takes time. Plan to rest for at lease 4-8 weeks while you recover. Then return to normal activity when your doctor says it's okay. * Ask your doctor about joining a heart rehabilitation program. * Tell your doctor if you are feeling depressed. Feelings of sadness are common after a heart attack, but it is important that you speak to someone if you are feeling overwhelmed by these feelings. * If you are having chest pain, call 911 for an ambulance. Do NOT drive yourself to the hospital. * Ask your family members to learn CPR. * Learn to take your own blood pressure and pulse. Keep a record of your results. Ask your doctor when you should seek emergency medical attention. He or she will tell you which blood pressure reading is dangerous. Lifestyle Changes: * Maintain a healthy weight. Get help to lose any extra pounds. * Cut back on salt. * Limit canned, dried, packaged, and fast foods. * Don't add salt to your food. * Season foods with herbs instead of salt when you cook. * Break the smoking habit. Enroll in a stop-smoking program to improve your chances of success. * Limit fatty foods. * Ask your doctor about having your lipid levels checked regularly. * Build up your activity according to your doctor's recommendation. * Ask your doctor when it's okay to resume sexual activity. * Tell your doctor about any erectile dysfunction (ED) medication you are taking. Some ED medications are not safe if you take certain heart medications. * Try to manage stress. ACTIVITY RECOMMENDATIONS following your heart catheterization: It is common to feel weak and fatigue for a few days. * Do not drive or operate any motorized equipment for the next 3 days. * Limit stair usage (2 or 3 trips a day only) for the next 3 days. * Do not lift anything heavier than 5 pounds for the next 5 days. * Do not engage in vigorous exercise or any sports until cleared by cardiology. * You may shower at this time, but do not immerse the RIGHT WRIST in water for 3 days. Thus, no tub baths or swimming or cleaning dishes for 3 days. Cleanse the right wrist gently with soap and water. SPECIAL CARE INSTRUCTIONS: * You may replace the pressure dressing or band-aid the morning after the procedure. * After your procedure, it is normal to have a small bruise or small lump at the site. Examine your site daily for any change in the bruise or lump, redness, swelling, drainage or numbness. Notify your doctor if any change. BLEEDING: * If there is a small amount of bleeding at the site, lie down and apply firm pressure with a clean cloth for ten minutes. When the bleeding stops, lie quietly keeping the procedure limb straight for six hours. Notify your doctor as soon as possible. * If the bleeding does not stop after ten minutes or if there is a large amount of bleeding or spurting, call 911 immediately. Continue to lie down and hold firm pressure until help arrives. SKIN IRRITATION: * You may experience some redness and/or swelling in the area where radiation was administered. If any skin irritation occurs, please contact your family physician. Pending Studies at Discharge: No Stand-Alone Forms: [employer], Smoking Cessation Medications and DC Order Prescriptions: New nitroglycerin [Nitrostat] 0.4 mg Tablet, Sublingual 0.4 mg sublingual Q5M PRN (Reason: chest pain) Qty: 1 0RF Rx Instructions: maximum 3 tabs in 15 minutes. Brilinta 90 mg Tablet 90 mg PO BID Qty: 60 1RF metoprolol succinate 50 mg tablet extended release 24 hr 50 mg PO DAILY Qty: 30 1RF Continued aspirin [Adult Aspirin Regimen] 81 mg tablet,delayed release (DR/EC) 81 mg PO QAM cholecalciferol (vitamin D3) 2,000 unit tablet 2,000 units PO BID ferrous sulfate [Feosol] 325 mg (65 mg iron) tablet 325 mg PO QPM multivitamin Tablet 1 tab PO QAM vitamin B complex [B Complex-Vitamin B12] Tablet 1 tab PO QAM gabapentin 300 mg capsule 300 mg PO BID Qty: 180 3RF Patient Comments: reports only takes in evening olmesartan 40 mg tablet 40 mg PO DAILY Qty: 90 3RF amlodipine 5 mg tablet 5 mg PO DAILY Qty: 90 3RF zinc gluconate 50 mg tablet 50 mg PO QPM bkrdwkcp-akui-mvqpd-oreg-capry 100 mg-150 mg- 50 mg-150 mg capsule 1 cap PO QPM triamcinolone acetonide 0.05 % ointment 1 applic topical BID Qty: 430 0RF Rx Instructions: Apply twice daily to rash on lower legs for 2 weeks nicotine (polacrilex) 4 mg lozenge 4 mg buccal Q4H PRN (Reason: nicotine cravings) Qty: 108 3RF amoxicillin 500 mg capsule 1,000 mg PO .COMPLEX PRN (Reason: ud) Qty: 4 1RF Rx Instructions: 1,000 mg orally 1 hour prior to dental procedures rosuvastatin [Crestor] 5 mg tablet 5 mg PO QPM Qty: 90 3RF Discontinued hydrochlorothiazide 12.5 mg tablet 12.5 mg PO QAM Qty: 90 3RF sulindac 200 mg tablet 200 mg PO BID Qty: 180 3RF Krames/Other Patient Handouts: Coronary Stents, Smoking Get Help to Quit, CAD Admission Data Admit Date/Time: 09/28/24 09:10 Attending Provider: Rajiv Aguila Admit Provider: Rajiv Aguila Primary Care Provider: Ailin Triplett Other Providers: Rajiv Aguila; Mega Contreras Hospital Stay Data Consultations 09/28/24 08:11 ED Decision to Admit Stat 09/28/24 09:11 Consult Dental Laboratory Technician Routine 09/28/24 11:19 Consult Cardiology Routine Procedures Performed Operation Date: 09/28/24 08:30 Actual Procedures p Cineradiography w/Routine Exam - Mega Contreras MD s Cath, Left with Cors and Vent - Mega Contreras MD s Drug Eluting Stent SGl Vessel - Mega Contreras MD Diagnostic Imagining Performed 09/28/24 08:06 CL Cath Imgs for PACS use only Stat Pending Results Patient Have Any Pending Studies at Discharge: No Discharge Instructions Given to Patient (Per Discharging Provider) Mr Mckeon, You were hospitalized after having had a heart attack. The heart attack involved the bottom portion of the heart. The specific artery that was clogged/blocked was the RIGHT CORONARY ARTERY. It was 100% blocked at the time of the heart catheterization. Dr Leo Contreras from [facility] placed a stent in the clogged right coronary artery. Following your catheterization you were admitted to the ICU where you remained stable until the time of discharge. You were started on various heart medicines by cardiology. An echocardiogram of your heart shows no obvious damage to the heart or any congestive heart failure resulting from the heart attack. This is great news for your heart health. Until you see Dr Contreras plan to take it easy and avoid strenuous activities. When you have your follow-up with cardiology they will talk to you about cardiac rehab and other activities that you can start to get involved with. Recommendations - 1. NEW heart medicines - * Brilinta (ticagrelor) 90mg twice daily. This medicine will prevent the stent from getting blocked. This medicine is VERY IMPORTANT to your heart health. * Metoprolol succinate 50mg once daily 2. Continue the following heart medicines - * aspirin 81mg daily * rosuvastatin - we have INCREASED the dose to 20mg once daily thus a new prescription will be called to the pharmacy * olmesartan 40mg once daily * amlodipine 5mg once daily 3. STOP your hydrochlorothiazide 4. STOP your sulindac which is an anti-inflammatory pill. Anti-inflammatory medicines are typically not safe nor recommended in those who have had a heart attack. It is OK to use tylenol as needed for aches/pains. 5. DO NOT TAKE any wwdj-hgu-euayxqv anti-inflammatory medicine including motrin, ibuprofen, naprosyn, or aleve. 6. If you have ANY symptoms that remind you of your heart attack - chest pain, back pain, arm pain - or you have shortness of breath/nausea/sweating - take nitroglycerin tablets under the tongue. If you have to use nitroglycerin please seek medical attention right away. The nitroglycerin is for emergency purposes only. It has a shelf-life of about 1 year. Keep the bottle with you at all times. 7. Please speak to your family doctor about the following - * getting back on your CPAP for sleep apnea; untreated sleep apnea has significant negative effects on the heart, your blood pressure, etc. * ways to help you quit smoking 8. Follow-up - see separate section Return to [facility] if - * you have any symptoms of another heart attack - chest pain, back pain, arm pain, shortness of breath, etc. * you have to use nitroglycerin tablets under the tongue * you have any concerns about your recent heart catheterization site (right wrist) * any other concerns It was our pleasure to care for you! Happy Thanksgiving, -Dr Aguila Coding Diagnoses STEMI (ST elevation myocardial infarction) I21.3 Hypokalemia E87.6 Primary hypertension I10 Hyperlipidemia E78.5 AVM (arteriovenous malformation) Q27.30 Sleep apnea G47.30
--- NOTE | 2024-10-02 15:44 | Electrocardiogram Report ---
Test Reason : Blood Pressure : */* mmHG Vent. Rate : 61 BPM Atrial Rate : 61 BPM P-R Int : 168 ms QRS Dur : 86 ms QT Int : 412 ms P-R-T Axes : 24 41 32 degrees QTcB Int : 414 ms Normal sinus rhythm with sinus arrhythmia Low voltage QRS Borderline ECG When compared with ECG of 28-Sep-2024 07:44, No significant change was found Confirmed by Mega Oliveros ([id number]) on 10/02/2024 3:44:20 PM Referred By: REFERRED SELF Confirmed By: Mega Oliveros
== END 2024-09-30 13:30 | disposition home or self-care (01) | DRG 321 ==
LOC: ED 07:36 → CC 08:13 → 1E 09:10